=== PATIENT | male | born 1955 | race Caucasian/White ===

== ENCOUNTER 2018-04-16 09:39 | Inpatient (IN) | payer MEDICARE, SELFPAY ==
[2018-04-16] MEDS ORDERED: Metoprolol Tartrate 5 MG/5 ML VIAL ONE (09:53)
[2018-04-16 09:57] LABS: #Basophils 0.1 thou/uL (0.0-0.2); #Eosinphils 0.1 thou/uL (0.0-0.7); #Lymphocytes 1.8 thou/uL (1.20-3.40); #Monocytes 0.4 thou/uL (0.11-0.59); #Neutrophils 13.5 thou/uL (1.40-6.50); %Basophils 0.7 % (0.0-1.0); %Eosinophils 0.4 % (0.0-10.0); %Lymphocytes 11.4 % (21.0-51.0); %Monocytes 2.7 % (0.0-10.0); %Neutrophils 84.7 % (42.0-75.0); Hemoglobin 16.6 g/dL (14.0-18.0); Mean Corpuscular HGB CONC 32.5 g/dL (32.0-36.0); Mean Corpuscular Hemoglobin 29.6 pg (27.0-31.0); Mean Platelet Volume 9.2 fL (7.4-10.4); Platelet Count 264 thou/uL (130-400); RBC Distribution Width 15.5 % (11.5-14.5); Red Blood Cell (RBC) Count 5.62 mill/uL (4.70-6.10); White Blood Cell (WBC) Count 15.9 thou/uL (4.8-10.8)
[2018-04-16] MEDS ORDERED: Propofol 1,000 MG/100 ML VIAL IV ONE ×2 (10:07→14:23)
[2018-04-16 10:16] LABS: CO2 Tension 59.3 mmHg (35.0-45.0); pH, Arterial 7.31 (7.35-7.45)
[2018-04-16 10:17] LABS: Analyzer IN Cardio ER; Base Excess (BEa) 1.2 mEq/L (-2.0 to +3.0); Calcium, Ionized 1.1 mmol/L (1.12-1.30); Puncture Site LBA
[2018-04-16 10:18] LABS: ALV-art Gradient 80.775 (0-20)
[2018-04-16 10:29] LABS: Bilirubin Negative (Negative); Blood, Urine Moderate (Negative); Clarity CLOUDY (Clear); Glucose, Urine (Dipstick) Negative (Negative); Leukocyte Moderate (Negative); Nitrite Negative (Negative); Protein, Urine (Dipstick) 300 mg/dL (Neg-Trace); Specific Gravity, Urine 1.016 (1.002-1.036); Urobilinogen 0.2 mg/dL (0.2-1.0); pH, Urine 5.5 (5.0-9.0)
--- NOTE | 2018-04-16 10:30 | RAD ---
CHEST ONE VIEW: HISTORY: Tube placement. COMPARISON: None. FINDINGS: The patient is intubated, with the endotracheal tube tip above the rivas, approximately 2 cm. Heart size is enlarged. No pneumothorax. A defibrillator pad projects over the right hemithorax. The left lung is relatively clear. Mild edema. Fullness of the hilum bilaterally. IMPRESSION: 1. Endotracheal tube tip above the rivas, approximately 2 cm. 2. Enteric tube tip felt to be at the gastric fundus. 3. Mild pulmonary venous congestion versus early edema. 4. Mild dilatation of the pulmonary arteries can be seen with early pulmonary arterial hypertension. POS: [facility]
[2018-04-16 10:31] LABS: Bacteria/HPF None Seen HPF (None Seen); Hyaline Casts/LPF 0-3 HYALINE CAST LPF (0-3 Hyaline); RBC/HPF 0-3 HPF (0-3); Squamous Epithelial 0-3 HPF (0-3); WBC/HPF 21-50 HPF (0-3); Yeast-AUWi Flag 23.6 (0-25.0)
[2018-04-16 10:38] LABS: Renal Epithelial None Seen HPF (0-3); Transitional Epithelial NONE SEEN HPF (0-3)
[2018-04-16] MEDS ORDERED: Acetaminophen 650 MG Suppository ONE (10:53)
--- NOTE | 2018-04-16 11:17 | CT ---
NONCONTRAST CT HEAD: 04/16/2018 HISTORY: Altered mental status. Persistent seizure activity for 30 minutes prior to EMS arrival, per family. History of seizures. COMPARISON: None available. FINDINGS: There is diminished attenuation in the periventricular white matter, greater on the left, which is no nspecific but likely reflective of chronic small vessel ischemic changes. A low density focus is see n in the region of the left basal ganglia, related to a lacunar infarction of indeterminate age. The re is also a punctate focus of decreased attenuation in the left thalamus, also consistent with a lac unar infarction of indeterminate age. No acute cortical infarction is seen. There is no intraparenc hymal or extraaxial hemorrhage identified. There is mild cerebral volume loss. The ventricular system is normal in size, shape, and position. Mucosal thickening is seen in the ethmoid air cells bilaterally. Mastoid effusions are present on th e right. Calvarial structures are intact. IMPRESSION: 1. Lacunar infarctions in the left basal ganglia and left thalamus, of indeterminate age. 2. Diminished attenuation in the periventricular and subcortical white matter, greater on the left, which is nonspecific but likely reflective of chronic small vessel ischemic changes. 3. MRI would be a more sensitive study of choice for evaluation of a more acute infarction. 4. Mild cerebral volume loss. 5. Sinus disease with mastoid effusions on the right. POS: [facility]
[2018-04-16 11:22] LABS: ALT (SGPT) 19 U/L (8-55); AST (SGOT) 23 U/L (5-34); Albumin 4.2 g/dL (3.4-4.8); Alkaline Phosphatase 143 U/L (40-150); Anion Gap 20 mmol/L (10-20); BUN (Urea Nitrogen) 33 mg/dL (8.4-25.7); Bilirubin, Total 0.8 mg/dL (0.2-1.2); Calc. Creatinine Clearance 0 mL/min (70-130); Calcium 9.3 mg/dL (7.8-10.44); Carbon Dioxide 26 mmol/L (23-31); Chloride 102 mmol/L (98-107); Estimated GFR-MDRD 52; Glucose 310 mg/dL (80-115); Potassium 4.2 mmol/L (3.5-5.1); Protein, Total 8.2 g/dL (5.8-8.1); Sodium 144 mmol/L (136-145)
[2018-04-16 11:25] LABS: CKMB 2.2 ng/mL (0-6.6); Troponin I 0.065 ng/mL (< 0.028)
[2018-04-16] MEDS ORDERED: Piperacillin/Tazobactam 3.375 GM VIAL ONE (12:03)
[2018-04-16] MEDS ORDERED: Sodium Chloride 0.9% 0 ML ONE ×2 (12:04→12:07)
[2018-04-16] MEDS ORDERED: Piperacillin/Tazobactam 3.375 GM in Sodium Chloride 0.9% 100 ML IVPB ONE (12:30)
[2018-04-16] MEDS ORDERED: Dextrose 5% in Water 1,000 ML IV PRN (12:33)
[2018-04-16] MEDS ORDERED: Dextrose 50% Abboject 50 ML SYRINGE SLOW IVP PRN (12:33)
[2018-04-16] MEDS ORDERED: Acetaminophen 650 MG Suppository PR PRN (12:39)
[2018-04-16] MEDS ORDERED: CCU Electrolyte Replacement 1 EACH IVPB ONE (12:39)
[2018-04-16] MEDS ORDERED: Acetaminophen 650 MG/20.3 ML UDCUP PO PRN (12:39)
[2018-04-16] MEDS ORDERED: Potassium Phosphate 15 MMOL in Sodium Chloride 0.9% 250 ML 250 ML IV PRN (12:44)
[2018-04-16] MEDS ORDERED: Potassium Chloride 40 MEQ in Sodium Chloride 0.9% 250 ML 250 ML IVPB PRN (12:44)
[2018-04-16] MEDS ORDERED: CCU ELECTROLYTE REPLACEMENT PROTOCOL FS PRN (12:44)
[2018-04-16] MEDS ORDERED: Magnesium 2 GM/NS 0.9% 100 ML 2 GM in Premix Bag 1 BAG IVPB PRN (12:44)
[2018-04-16] MEDS ORDERED: Potassium Phosphate 12 MMOL in Sodium Chloride 0.9% 250 ML 250 ML IV PRN (12:44)
[2018-04-16] MEDS ORDERED: Magnesium Oxide 400 MG TAB PO PRN ×2 (12:44)
[2018-04-16] MEDS ORDERED: Potassium Chloride 40 MEQ in Premix Bag 1 BAG IVPB PRN (12:44)
[2018-04-16] MEDS ORDERED: Potassium Chloride 20 MEQ TAB PO PRN (12:44)
[2018-04-16] MEDS ORDERED: Potassium Phosphate 9 MMOL in Sodium Chloride 0.9% 100 ML IVPB PRN (12:44)
[2018-04-16] MEDS ORDERED: Metoprolol Tartrate 5 MG/5 ML VIAL IVP PRN (13:07)
[2018-04-16] MEDS ORDERED: Ketorolac Tromethamine 30 MG/ML VIAL ONE (13:15)
--- NOTE | 2018-04-16 13:36 | HP ---
PRESENTING COMPLAINT: Seizures. HISTORY OF PRESENT ILLNESS: Mr. Magdaleno Powell is a 62-year-old male with a past medical history of de pression, atrial fibrillation, diabetes mellitus, hypertension, hyperlipidemia, and diagnosed with a seizure disorder about a month ago and was started on Keppra. According to his , he felt very un well yesterday and reported feeling fatigued and had poor appetite. He did not have any specific sym ptoms, but he laid in bed all day. Then earlier this morning around 5:00 a.m. he started having seiz ures and had recovery afterwards and told to only have a least fall seizure episodes after which he b ecame unresponsive and then called EMS. He was given 2 doses of Versed in the field. On arriva l, he was found to be nonresponsive with a [place] coma scale of about 7. He was then intubated for airway protection at the emergency room and was found to be febrile and EKG showed atrial fibrillatio n with RVR for which he was given 5 mg of metoprolol with resolution. Labs also revealed elevated WB C of about 16,000, lactate of 4.8 and initial troponin 0.065. ABG done showed a pH of 7.3 with pCO2 of 59.3 and pO2 59. Urinalysis revealed moderate amount of leukocyte esterase with increased WBCs, b ut no bacteria or nitrites. His reports he was treated for a urinary tract infection last month . Chest x-ray showed mild pulmonary venous congestion versus heavy edema and mild dilatation of the pulmonary arteries. Brain CT showed no acute abnormalities. PAST MEDICAL HISTORY: Atrial fibrillation, diabetes mellitus, hypertension, seizure disorder, depres warren, hyperlipidemia. PAST SURGICAL HISTORY: Bilateral toe surgery. He is status post 2 cardiac stents and left shoulder surgery. FAMILY HISTORY: Reviewed and noncontributory. SOCIAL HISTORY: He smokes about 4 cigarettes daily, but does not drink alcohol or use illicit drugs. ALLERGIES: No known drug allergies. CODE STATUS: Full code. HOME MEDICATIONS: Reviewed. REVIEW OF SYSTEMS: The patient is intubated, so unable to review systems. In addition, history is limited due to patient being sedated and intubated. History gotten from [facility] review, sign out and the patient's . PHYSICAL EXAMINATION: VITAL SIGNS: Blood pressure 160/100, heart rate 102. All other vital signs within normal limits. GENERAL: The patient is intubated and sedated, looks comfortable. HEENT: Neck is supple, no JVD. Normocephalic, atraumatic. Not pale, anicteric. PERRLA. CARDIOVASCULAR: Slightly tachycardic at 102. Regular rate and rhythm. No murmurs, rubs or gallops S1, S2 only. RESPIRATORY: Vesicular breath sounds bilaterally. No wheezes, rales or rhonchi. ABDOMEN: Soft, nontender, nondistended. No organomegaly. Bowel sounds normoactive. MUSCULOSKELETAL: No edema. SKIN: Warm, dry, well-perfused. No rashes or lesions. EXTREMITIES: Right second toe amputation. NEUROLOGIC: Intubated and sedated. LABORATORY: Labs as stated in HPI. ____ as stated in the HPI. ASSESSMENT AND PLAN: 1. Acute respiratory failure with hypoxia and hypercapnia. 2. Status epilepticus. 3. Atrial fibrillation with rapid ventricular response. 4. Hypertension. 5. Hyperlipidemia. 6. Depression. PLAN: The patient had status epilepticus with subsequent inability to protect airway leading to acut e hypoxic and hypercapnic respiratory failure. He has been intubated and sedated. We will obtain a Keppra level. Blood cultures have also been obtained and he has been started on broad spectrum antib iotics for possible infection triggering his seizures. We will follow up on blood cultures. In ofe tion, we will obtain Neurology consult, pursue drain cultures and trend troponin and CPK level. Pulm onary will also be consulted. He will also be hydrated with IV fluids due to his elevated Keppra lev el which could be due to infection, but also due to his seizures. For atrial fibrillation we will pl mary on IV metoprolol p.r.n. for heart rate greater than 170. If still uncontrolled might be forced t o start on the diltiazem drip and consult Cardiology. CODE STATUS: Full code. Deep venous thrombosis prophylaxis with subcutaneous heparin. Critical care time 45 minutes.
[2018-04-16] MEDS ORDERED: Lorazepam 2 MG/ML VIAL SLOW IVP PRN ×3 (14:10→16:42)
[2018-04-16 14:13] LABS: Troponin I 0.135 ng/mL (< 0.028)
[2018-04-16] MEDS: Sodium Chloride 0.9% 1,000 ML IV SCH (16:00)
[2018-04-16] MEDS ORDERED: Propofol BOLUS 1,000 MG/100 ML VIAL IV PRN (16:42)
[2018-04-16] MEDS ORDERED: DISCONTINUE PREVIOUS NARCOTIC PAIN MEDICATIONS AND BENZODIAZEPINES FS SCH (16:42)
[2018-04-16] MEDS ORDERED: fentaNYL Citrate/PF 2,000 MCG in Sodium Chloride 0.9% 60 ML IV SCH (16:42)
[2018-04-16] MEDS ORDERED: Morphine 4 MG/ML VIAL SLOW IVP PRN (16:42)
[2018-04-16] MEDS ORDERED: Fentanyl BOLUS 250 ML IVPB PRN (16:42)
[2018-04-16 17:07] LABS: Lactic Acid 2.1 mmol/L (0.5-2.2)
[2018-04-16] MEDS: Ampicillin 2 GM in Sodium Chloride 0.9% 100 ML IVPB SCH ×2 (17:08→20:59)
[2018-04-16] MEDS: Cefepime 2 GM in Sodium Chloride 0.9% 100 ML IVPB SCH (17:09)
[2018-04-16] MEDS: Heparin 5,000 UNITS/ML VIAL SC SCH ×2 (17:09→20:59)
[2018-04-16] MEDS: Acetaminophen 650 MG/20.3 ML UDCUP PO SCH ×2 (17:09→22:32)
[2018-04-16] MEDS: HumaLOG 300 UNITS/3 ML VIAL SC PRN ×2 (17:10→21:04)
[2018-04-16 17:16] LABS: Troponin I 0.243 ng/mL (< 0.028)
[2018-04-16] MEDS ORDERED: Piperacillin/Tazobactam 3.375 GM in Sodium Chloride 0.9% 100 ML IVPB SCH (18:00)
[2018-04-16] MEDS: Propofol 1,000 MG/100 ML VIAL IV PRN (19:00)
[2018-04-16] MEDS: Famotidine/PF 20 mg/2ml Vial SLOW IVP SCH (20:22)
[2018-04-16] MEDS: levETIRAcetam In NaCl (Iso-Os) 1,500 MG in Premix Bag 1 BAG IVPB SCH (20:22)
[2018-04-16] MEDS: Labetalol HCl 100 MG/20 ML VIAL SLOW IVP PRN (21:12)
--- NOTE | 2018-04-16 21:59 | CON ---
DATE OF CONSULTATION: 04/16/2018 SERVICE: Pulmonary Medicine. REASON FOR CONSULTATION: Respiratory failure. HISTORY OF PRESENT ILLNESS: The patient is a 62-year-old white male with past medical history significant for some degree of COPD. He was diagnosed with new- onset seizures about a month ago. He underwent evaluation at that time, which was apparently unremarkable so far as I am aware. He was discharged from a different hospital on . From the 's recollection, he was taking all his medications as directed. He had an abrupt onset of seizures. Without recovering fully, he had 3 more seizures. EMS services were contacted when the patient became less responsive. He was intubated in the field and subsequently brought to the emergency department. He was given Versed there. In the Emergency Department, he was kept down with propofol. There was no more witnessed seizure activity identified, but the patient had a persistent fever of 102. He cannot provide any elements of the history at this time. He is just getting settled in the ICU as I am dictating. PAST MEDICAL HISTORY: 1. Seizure disorder, new onset. 2. Type 2 diabetes mellitus. 3. Atrial fibrillation. 4. Hypertension. 5. Dyslipidemia. 6. Major depressive disorder. 7. Chronic obstructive pulmonary disease, suspected based on barrel chest. 8. Coronary artery disease. 9. Peripheral vascular disease. PAST SURGICAL HISTORY: 1. Toe amputations, bilateral. 2. Cardiac stents x2. 3. Left shoulder surgery. FAMILY HISTORY: Noncontributory. SOCIAL HISTORY: The patient continues to smoke roughly 1/4 pack on a daily basis. He has a greater than [id number] history of smoking. He denies any alcohol or illicit drug use. ALLERGIES: No known drug allergies. MEDICATIONS: List of his inpatient medications were reviewed. A couple of small updates were made. REVIEW OF SYSTEMS: This cannot be obtained as the patient is currently intubated and sedated. PHYSICAL EXAMINATION: VITAL SIGNS: Temperature 102, pulse 96, blood pressure 128/82, respirations 20 , saturation 93% on 23% FiO2 and a PEEP of 5. GENERAL: The patient is intubated and sedated. HEENT: Normocephalic, atraumatic. Sclerae white. Conjunctivae pink. Oral and nasal mucosa is moist without lesions. LUNGS: Decent air entry. There is a slightly prolonged expiratory phase, but I do not appreciate wheezing, rhonchi, or crackles. HEART: Normal rate, regular. ABDOMEN: Scaphoid. Bowel sounds are positive. Soft, nontender, nondistended. There is no rebound or guarding. GENITOURINARY: Muhammad catheter in place. NEUROLOGIC: He is withdrawing for noxious stimuli in the left upper and lower extremities. He is moving the right upper and lower extremities quite a bit less. Pupils are equal, round, and reactive. He is overbreathing the ventilator comfortably. LABORATORY DATA: WBC 15.9, hemoglobin 16.6, platelets 264,000. PH 7.31, pCO2 of 60, pO2 of 60. This was on 30% FiO2 at that time. Creatinine is 1.38. Basic metabolic profile and liver function studies are essentially unremarkable. Lactate is 4.8. Troponin 0.65, is up trending to 0.135. Urinalysis is essentially unremarkable. Leukocyte esterase is elevated. There is moderate number of white blood cells in the urine. Keppra level is 25.9. IMAGING: CT of the brain demonstrates lacunar infarctions in the left basal ganglia and the left thalamus with an indeterminate age. There is decreased attenuation in the periventricular and subcortical white matter, greater on the left, likely reflecting chronic small vessel disease. ASSESSMENT: 1. Respiratory failure secondary to inability to protect airway. 2. Status epilepticus. 3. Severe sepsis. 4. Cerebrovascular accident, possibly acute versus subacute. 5. Chronic obstructive pulmonary disease without acute exacerbation. DISCUSSION AND PLAN: We will schedule some nebulized medications. I will repeat a lactate and a troponin. If he is clearing his acidosis, we will hold sedation and see whether or not the patient wakes up appropriately. If he does , extubation will be considered. I will schedule some Tylenol for the fever. It may be infection or associated with the thermostat being damaged from a recent stroke. Agree with Neurology consultation. The patient will likely require an LP, but I need to clarify what medications he was on at home to make certain it would be safe to proceed with that. I will stop the Zosyn and put him on cefepime instead and add ampicillin based on age and make certain that we empirically cover for BLUEPRINT BLOCKER disease. Critical care time: 30 minutes. [facility]
[2018-04-16] MEDS: hydrALAZINE 20 MG/ML VIAL SLOW IVP PRN (22:31)
[2018-04-16] MEDS: Vancomycin HCl 1 GM in Premix Bag 1 BAG IVPB SCH (22:31)
--- NOTE | 2018-04-16 23:47 | CON ---
DATE OF CONSULTATION: 04/16/2018 IMPRESSION: 1. Status epilepticus secondary to urosepsis. 2. History of a new onset of focal seizures with secondary generalization secondary to chronic [place]che beka injury in the left frontal and parietal lobe. 3. Diabetes. 4. Hypertension. 5. Atrial fibrillation. PLAN: 1. Increase Keppra to 1500 mg twice a day. 2. Wean off the ventilator as able. HISTORY OF PRESENT ILLNESS: Mr. Powell is a 62-year-old man with a known history of multiple medical problems. Last month, he developed new onset of seizures. He was started on Keppra. He was seen do wn at the [facility] and that Keppra dose was increased to 1000. He started having recurrent seizures yesterday and was subsequently admitted, intubated, and sedated with propofol. He has not had any f urther seizure activity. CT scan of the brain shows areas of chronic ischemic injury as noted above. His laboratory studies notable for an elevated white count and probable urinary tract infection. H is Keppra level was 25 with normal range being up to 100. PAST MEDICAL HISTORY: As listed above. ALLERGIES: None. SOCIAL HISTORY: He smokes a little bit, but does not use any alcohol. FAMILY HISTORY: Noncontributory. REVIEW OF SYSTEMS: Not obtainable. PHYSICAL EXAMINATION: GENERAL: He is a well-nourished elderly man on ventilatory support and sedated. VITAL SIGNS: Stable with a pulse around 100. HEENT: Pupils are equal. Conjunctivae clear. He is orally intubated. NECK: Supple. EXTREMITIES: No cyanosis. NEUROLOGIC: He is deeply sedated on propofol nothing focal was noted as far as his tone or movement. SUMMARY: A 62-year-old gentleman who has some cerebral ischemic injury resulting in secondary seizur es. They have been noted to begin on the right side and secondarily generalized. We can try increas ing his Keppra to see if this will hold him, be happy to assist if you need further care from at this point.
--- NOTE | 2018-04-17 01:41 | CON ---
DATE OF CONSULTATION: 04/16/2018 INDICATION FOR CONSULTATION: A 62-year-old patient with atrial fibrillation and RVR. HISTORY OF PRESENT ILLNESS: This is a very unfortunate 62-year-old gentleman who has been having wes sorto recently, he has been on Keppra. He apparently had a seizure, which lasted longer, today he wa s brought to the emergency room, he was found to be in atrial fibrillation. He was given metoprolol. He then is now under better rate control. His heart rate in the 100s. I will see the patient at t his time. He apparently does have some history of atrial fibrillation in the past. He is now intuba kevin. Also his cardiac enzymes are indeterminate, but slightly elevated, that have increased from 0.0 65 to 0.0135 and now the latest one was 0.0243 with MB of 2.2. This to be elevated slightly or indet erminate due to the atrial fibrillation with rapid ventricular response. I am uncertain of any past cardiac history that the patient may have, but he does have multiple risk factors of coronary artery disease which include hypertension, hypercholesterolemia and diabetes. He has also had stent placeme nts. He has a left carotid stent. He has also had peripheral vascular disease, he had stent placeme nts. We are uncertain again whether or not he has had any coronary artery disease. He is on Plavix as well as aspirin. PAST MEDICAL HISTORY: Significant for diabetes, hypertension, hypercholesterolemia, seizure disorder , left carotid stent, peripheral vascular disease. He has had toe amputations, he has osteoarthritis . SOCIAL HISTORY: He is . He smoked in the past, but has stopped apparently. His tobacco abus e, but he smoked in the past. Alcohol use, he drinks also in the past but stopped about 3 years ago. FAMILY HISTORY: Noncontributory. ALLERGIES: There are no known drug allergies. MEDICATIONS: He has an extensive list of medications prior to being admitted. These included Colace , vitamin D2, ferrous gluconate, Lasix 80 mg a day, gabapentin 300 mg 3 times daily, losartan 100 mg daily, metformin 100 mg b.i.d. He was also having nicotine patch and also nicotine gum. He is on om eprazole, potassium, sertraline, tamsulosin, tramadol. REVIEW OF SYSTEMS: The patient is on ventilator and these cannot be obtained at this time. Please r efer to the records already dictated. PHYSICAL EXAMINATION: GENERAL: Reveals an ill-appearing gentleman. VITAL SIGNS: Blood pressure is 166/101, heart rate is 101, respiratory rate is 20, O2 saturation 95% on the ventilator. HEENT: Shows head to be normocephalic and atraumatic. Carotid pulses are present. I did not hear a ny significant bruits. CHEST: Clear anteriorly. Posteriorly, he has minimal basilar rales. CARDIOVASCULAR: Heart sounds are distant. His chest is somewhat barrel type chest. I do not hear a very soft systolic murmur over the aortic area and also at the apex. Otherwise, there were no signi ficant murmurs, heaves, thrills, bruits or rubs. ABDOMEN: Soft and nontender. Positive bowel sounds are present. EXTREMITIES: Showed no clubbing. There is no significant cyanosis. He does have amputations of the toes. His right great toe appears to have been recently amputated. I cannot palpate pedal pulses. Popliteal pulses also were not present by this examiner. NEUROLOGIC: The patient is on the ventilator and sedated. IMAGING DATA: EKG shows a right bundle branch block with atrial fibrillation with rapid ventricular response. Ther e was some possible ischemic changes in ST segment depression, but no ST segment elevation. Chest x- ray shows mild pulmonary edema. IMPRESSION: 1. A 62-year-old patient with atrial fibrillation with rapid ventricular response. At this time, we will rate control the patient, uncertain whether or not he has had a long history of atrial fibrilla tion in the past and why he had been not on any other oral anticoagulation. It may be due to history of falls or due to his seizure disorder. This is most likely due to the seizure disorder. They hav e held the medications. 2. Right bundle branch block. It is uncertain as to whether this is new for this patient or not. I t is uncertain whether the patient has coronary artery disease, but it would not be unlikely. 3. Seizure disorder. This will be dealt with by the primary care service. 4. History of peripheral vascular disease. He has had recent amputations. 5. Diabetes, also blood sugars between 225 and 310. We will need better adjustment. At this time, we will need to evaluate the echocardiogram and we will try to obtain any records or [facility] whether or not there is any indication the patient has had previous coronary artery disease. We would be more than happy to continue to follow the patient with you, but at this time, I would agr ee with rate control in this patient and certainly he is sedated at this time, we could use Lovenox f or anticoagulation. I did not see any contraindication to using Lovenox for this patient at this angela e for his atrial fibrillation.
[2018-04-17] MEDS: Sodium Chloride 0.9% 1,000 ML IV SCH ×2 (02:48→07:51)
[2018-04-17] MEDS: Propofol 1,000 MG/100 ML VIAL IV PRN ×2 (02:48→18:16)
[2018-04-17] MEDS: Ampicillin 2 GM in Sodium Chloride 0.9% 100 ML IVPB SCH ×2 (03:16→09:14)
[2018-04-17] MEDS: Cefepime 2 GM in Sodium Chloride 0.9% 100 ML IVPB SCH ×2 (04:57→16:40)
[2018-04-17] MEDS: HumaLOG 300 UNITS/3 ML VIAL SC PRN (04:57)
[2018-04-17] MEDS: Acetaminophen 650 MG/20.3 ML UDCUP PO SCH ×3 (05:01→16:40)
[2018-04-17 05:45] LABS: ALT (SGPT) 14 U/L (8-55); AST (SGOT) 20 U/L (5-34); Albumin 4.2 g/dL (3.4-4.8); Alkaline Phosphatase 134 U/L (40-150); Anion Gap 20 mmol/L (10-20); BUN (Urea Nitrogen) 32 mg/dL (8.4-25.7); Bilirubin, Total 0.8 mg/dL (0.2-1.2); Calc. Creatinine Clearance 65 mL/min (70-130); Calcium 9.4 mg/dL (7.8-10.44); Carbon Dioxide 25 mmol/L (23-31); Chloride 102 mmol/L (98-107); Estimated GFR-MDRD 61; Globulin 4.2 g/dL (2.4-3.5); Glucose 236 mg/dL (80-115); Potassium 3.3 mmol/L (3.5-5.1); Protein, Total 8.4 g/dL (5.8-8.1); Sodium 144 mmol/L (136-145)
[2018-04-17 05:57] LABS: Band 3 % (5-11); Lymphocytes 6 % (21-51); MDiff Complete? YES; Mean Corpuscular HGB CONC 34.3 g/dL (32.0-36.0); Mean Corpuscular Hemoglobin 30.9 pg (27.0-31.0); Mean Corpuscular Volume 90.2 fl (80.0-94.0); Mean Platelet Volume 8.5 fL (7.4-10.4); Monocytes 2 % (0-10); Neutrophil 89 % (42-75); Platelet Count 171 thou/uL (130-400); RBC Distribution Width 15.7 % (11.5-14.5); Red Blood Cell (RBC) Count 5.16 mill/uL (4.70-6.10)
[2018-04-17] MEDS ORDERED: Carvedilol 3.125 MG TAB PO SCH ×2 (08:00→09:30)
[2018-04-17] MEDS: Labetalol HCl 100 MG/20 ML VIAL SLOW IVP PRN ×6 (08:59→17:06)
[2018-04-17] MEDS: Heparin 5,000 UNITS/ML VIAL SC SCH (09:06)
[2018-04-17] MEDS: levETIRAcetam In NaCl (Iso-Os) 1,500 MG in Premix Bag 1 BAG IVPB SCH ×2 (09:15→20:21)
--- NOTE | 2018-04-17 09:38 | PRG ---
DATE OF SERVICE: 04/17/2018 SERVICE: Pulmonary Medicine. INTERVAL HISTORY: The patient is doing poorly from a mentation standpoint. When we interrupt his pr opofol, he is not doing anything of purpose. He has not been seen to move his right upper or lower e xtremity. He will spontaneously move his left upper and lower extremity and withdraw from noxious st imuli. He does not attend. There were no events other than fever overnight. PHYSICAL EXAMINATION: VITAL SIGNS: Afebrile currently with a T-max overnight of 102.7, pulse 99, blood pressure 191/106, r espirations 16, saturation 96% on 21% FiO2 and a PEEP of 5. GENERAL: The patient is intubated and under the influence of some sedation. HEENT: Normocephalic, atraumatic. Sclerae are white. Conjunctivae pink. Oral and nasal mucosa is moist without lesions. He does an eye fluttering maneuver. LUNGS: Decent air entry with no prolonged expiratory phase, wheezing, rhonchi, or crackles. HEART: Normal rate, regular. ABDOMEN: Soft, nontender, nondistended. Bowel sounds are positive. MUSCULOSKELETAL: No cyanosis or clubbing. There is no pitting in the bilateral lower extremities. NEUROLOGIC: Grossly nonfocal. LABORATORY DATA: WBC 18.0, hemoglobin 16.0, platelets 171,000. Neutrophil count is 89% with 3% band s. Creatinine 1.20 and downtrending. Basic metabolic profile and liver function studies are, otherw ise, unremarkable. His potassium, however, is 3.3. Two out of two blood cultures are positive for g ayah-positive cocci. Urine cultures negative to date. ASSESSMENT: 1. Respiratory failure secondary to inability to protect airway. 2. Status epilepticus. 3. Metabolic encephalopathy. 4. Severe sepsis. 5. Chronic obstructive pulmonary disease with acute exacerbation. 6. Bacteremia secondary to gram-positive cocci. 7. Cerebrovascular accident, acute versus subacute. DISCUSSION AND PLAN: We will replace potassium. I will get an MRI and EEG today. Labetalol interva l will be increased and we will try to keep his systolic blood pressures under 180. Magnesium will b e checked in the morning. Multiple ventilator adjustments have been made in order to improve comfort . Namely, we backed off the rate and turned a little bit more work of breathing over to the patient. If he is having any seizure activity, we will need to put him in a propofol coma for a period of 24 -48 hours. Critical care time: 30 minutes.
[2018-04-17] MEDS: Sodium Chloride 0.45% 1,000 ML IV SCH ×2 (09:44→23:39)
[2018-04-17] MEDS ORDERED: Dextrose 5% in Water 1,000 ML IV PRN (10:15)
[2018-04-17] MEDS ORDERED: Dextrose 50% Abboject 50 ML SYRINGE SLOW IVP PRN (10:15)
[2018-04-17] MEDS: Vancomycin HCl 1 GM in Premix Bag 1 BAG IVPB SCH ×2 (11:53→23:35)
[2018-04-17] MEDS ORDERED: Losartan 25 MG TAB PO SCH (12:45)
--- NOTE | 2018-04-17 12:46 | PDOC.CTH ---
<Haily Pickering - Last Filed: 04/17/18 12:43> Cardiology Progress Note - Subjective The pt seen and examined. No overnight events. No cardiac complaints. He opens his eyes with pain stimulation; however, he does not follow commands. - Objective Vital Signs Temp Pulse Resp BP Pulse Ox 04/17/18 12:00 17 04/17/18 11:35 81 190/100 H 04/17/18 11:01 85 206/107 H 04/17/18 10:18 93 186/118 H 04/17/18 10:00 17 04/17/18 09:00 99 215/122 H 04/17/18 08:59 99 215/122 H 04/17/18 08:00 99.9 F H 99 17 99 04/17/18 06:55 86 169/102 H 04/17/18 06:00 14 04/17/18 04:00 100.1 F H 17 04/17/18 02:45 103 H 157/91 H 04/17/18 02:00 17 Weight 166 lb 14.239 oz 04/16/18 04/17/18 04/18/18 06:59 06:59 06:59 Intake Total 2228 Output Total 655 335 Balance 1573 -335 - Physical Examination Lungs: other: (diminished at bases) Heart: other: (irregular) Abdomen: soft Extremities: other: (No edema) - Telemetry Telemetry Rhythm: Afib 80s - Labs Result Diagrams: 04/17/18 05:20 04/17/18 05:20 Troponin/CKMB CK-MB (CK-2) 2.2 ng/mL (0-6.6) 04/16/18 10:55 Troponin I 0.243 ng/mL (< 0.028) H 04/16/18 16:39 - Assessment/Plan 1. Afib with RVR - rate well controlled; BBlocker and Heparin 5000 units TID; cont. to monitor 2. Seizure 2nday to chronic ischemic injury in Lt frontal and parental lobe - managed by neurologist 3. HTN - on Coreg 12.5mg BID with PRN BP med; start Losartan 50mg qd and amilodipine 5mg at HS; 4. Urosepsis - On IV antibiotics; managed by PCP 5. DM type 2 - managed by PCP 6. Hyperlipidemia - on statin 7. PVD with hx of stent placement and Bilat Toe amputation in 02/2018 - on Heparin 5000units TID. MAR reviewed Review of Systems - Review of Systems Constitutional: reports: see HPI EENTM: reports: see HPI Respiratory: reports: see HPI Cardiac (ROS): reports: see HPI ABD/GI: reports: see HPI : reports: see HPI Musculoskeletal: reports: see HPI <Lianet Mcnamara - Last Filed: 04/17/18 20:17> Cardiology Progress Note - Objective Vital Signs Pulse Resp BP Pulse Ox 04/17/18 18:20 100 15 100 04/17/18 18:00 14 04/17/18 17:06 96 197/55 H 04/17/18 16:00 24 H 04/17/18 15:52 96 197/55 H 04/17/18 14:47 103 H 215/56 H 04/17/18 14:00 25 H 04/17/18 13:56 84 176/53 H 04/17/18 12:50 84 176/53 H 04/17/18 12:00 17 04/17/18 11:35 81 190/100 H 04/17/18 11:01 85 206/107 H 04/17/18 10:18 93 186/118 H 04/17/18 10:00 17 04/17/18 09:00 99 215/122 H 04/17/18 08:59 99 215/122 H Admit Weight 166 lb Weight 166 lb 14.239 oz 04/16/18 04/17/18 04/18/18 06:59 06:59 06:59 Intake Total 2228 1139 Output Total 655 685 Balance 1573 454 - Physical Examination Lungs: other: Heart: other: - Labs Result Diagrams: 04/17/18 05:20 04/17/18 05:20 Troponin/CKMB CK-MB (CK-2) 2.2 ng/mL (0-6.6) 04/16/18 10:55 Troponin I 0.243 ng/mL (< 0.028) H 04/16/18 16:39 - Assessment/Plan Pt. seen and eval. by me. I agree with the A/P by the [facility]. multiple medical problems. Echo: see report. EF: 60-65%Mild ,Mild TR, trace MR,AI,PI.
--- NOTE | 2018-04-17 13:17 | PDOC.PN ---
- Subjective Encounter Start Date: 04/17/18 Encounter Start Time: 13:24 Patient seen and examined. Admitted for respiratory failure, status epilepticus , and probable new CVA, as well as sepsis. Remains intubated. - Objective Vital Signs & Weight: Vital Signs (12 hours) Temp Pulse Resp BP Pulse Ox 04/17/18 12:50 84 176/53 H 04/17/18 12:00 17 04/17/18 11:35 81 190/100 H 04/17/18 11:01 85 206/107 H 04/17/18 10:18 93 186/118 H 04/17/18 10:00 17 04/17/18 09:00 99 215/122 H 04/17/18 08:59 99 215/122 H 04/17/18 08:00 99.9 F H 99 17 99 04/17/18 06:55 86 169/102 H 04/17/18 06:00 14 04/17/18 04:00 100.1 F H 17 04/17/18 02:45 103 H 157/91 H 04/17/18 02:00 17 Weight Weight 166 lb 14.239 oz Most Recent Monitor Data Heart Rate from ECG 76 NIBP 206/107 NIBP BP-Mean 133 Respiration from ECG 17 SpO2 97 I&O: 04/16/18 04/17/18 04/18/18 06:59 06:59 06:59 Intake Total 2228 Output Total 655 335 Balance 1573 -335 Result Diagrams: 04/17/18 05:20 04/17/18 05:20 Additional Labs: Accuchecks 04/17/18 04/17/18 04/16/18 11:34 04:44 21:05 POC Glucose 209 H 244 H 199 H 04/16/18 16:48 POC Glucose 225 H Phys Exam - Physical Examination Constitutional: NAD HEENT: PERRLA, moist MMs, oral pharynx no lesions Neck: no JVD, supple Respiratory: no wheezing, no rales, no rhonchi, clear to auscultation bilateral Cardiovascular: RRR, no significant murmur, no rub Gastrointestinal: soft, non-tender, no distention, positive bowel sounds Musculoskeletal: no edema Spontaneous eye opening but not able to follow commands. Deviation from normal: Cool extremities. 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; partial amputation L great Dx/Plan (1) Acute respiratory failure with hypoxia and hypercapnia Code(s): J96.01 - ACUTE RESPIRATORY FAILURE WITH HYPOXIA; J96.02 - ACUTE RESPIRATORY FAILURE WITH HYPERCAPNIA Status: Acute (2) Atrial fibrillation with RVR Code(s): I48.91 - UNSPECIFIED ATRIAL FIBRILLATION Status: Acute (3) Status epilepticus Code(s): G40.901 - EPILEPSY, UNSP, NOT INTRACTABLE, WITH STATUS EPILEPTICUS Status: Acute (4) CVA (cerebral vascular accident) Code(s): I63.9 - CEREBRAL INFARCTION, UNSPECIFIED Status: Acute (5) Hypertensive emergency Code(s): I16.1 - HYPERTENSIVE EMERGENCY Status: Acute Comment: Improving with IV labetalol. (6) Sepsis Code(s): A41.9 - SEPSIS, UNSPECIFIED ORGANISM Status: Acute Qualifiers: Sepsis type: sepsis due to unspecified organism Qualified Code(s): A41.9 - Sepsis, unspecified organism Comment: Unclear source- UTi or meningeal (7) DM2 (diabetes mellitus, type 2) Status: Acute Qualifiers: Diabetes mellitus skilled nursing insulin use: without termite control service representative use Diabetes mellitus complication status: with neurologic complications Diabetes mellitus complication detail: with polyneuropathy Qualified Code(s): E11.42 - Type 2 diabetes mellitus with diabetic polyneuropathy (8) HLD (hyperlipidemia) Code(s): E78.5 - HYPERLIPIDEMIA, UNSPECIFIED Status: Acute Qualifiers: Hyperlipidemia type: unspecified Qualified Code(s): E78.5 - Hyperlipidemia , unspecified (9) PVD (peripheral vascular disease) Code(s): I73.9 - PERIPHERAL VASCULAR DISEASE, UNSPECIFIED Status: Chronic (10) CINTIA (acute kidney injury) Code(s): N17.9 - ACUTE KIDNEY FAILURE, UNSPECIFIED Status: Acute (11) Hypokalemia Code(s): E87.6 - HYPOKALEMIA Status: Acute - Plan cont current plan of care, continue antibiotics, DVT proph w/heparin Continue broad spectrum antibiotics- Vanc, Cefemime and Ampicillin for possible meningeal source of sepsis Patient will be weaned off vent Continue Insulin Labetalol 20 mg IV PRN for tachycardia, BP > 180 Will need an MRI and EEG for possible new CVA and epilepsy. f/u final blood culture results. Review of Systems - Medications/Allergies Allergies/Adverse Reactions: Allergies Allergy/AdvReac Type Severity Reaction Status Date / Time No Known Allergies Allergy Unverified 04/16/18 12:16 Medications: Current Medications Acetaminophen (Tylenol Elixir) 650 mg PO Q6HR [facility] Stop: 04/17/18 18:01 Last Admin: 04/17/18 11:35 Dose: 650 mg Acetaminophen (Tylenol Elixir) 650 mg PO Q6H PRN PRN Reason: Fever > 101 or Mild Pain Acetaminophen (Tylenol) 650 mg CA Q6H PRN PRN Reason: Fever > 101 or Mild Pain Albuterol/Ipratropium (Duoneb) 3 ml NEB [id number] [facility] Last Admin: 04/17/18 12:49 Dose: 3 ml Amlodipine Besylate (Norvasc) 5 mg PO 2100 [facility] Atorvastatin Calcium (Lipitor) 80 mg PO HS [facility] Carvedilol (Coreg) 12.5 mg PO BID-WM [facility] Dextrose/Water (Dextrose 50%) 25 gm SLOW IVP PRN PRN PRN Reason: Hypoglycemia Famotidine (Pepcid) 20 mg SLOW IVP Q12HR [facility] Last Admin: 04/16/18 20:22 Dose: 20 mg Glucagon (Glucagon) 1 mg IM PRN PRN PRN Reason: Hypoglycemia Heparin Sodium (Porcine) (Heparin) 5,000 units SC TID [facility] Last Admin: 04/17/18 09:06 Dose: Not Given Hydralazine HCl (Apresoline) 10 mg SLOW IVP Q6H PRN PRN Reason: Hypertension Last Admin: 04/16/18 22:31 Dose: 10 mg Vancomycin HCl 1 gm/ Device 200 mls @ 200 mls/hr IVPB 1100,2300 [facility] Last Admin: 04/17/18 11:53 Dose: 200 mls Potassium Chloride 40 meq/ (Sodium Chloride) 270 mls @ 135 mls/hr IVPB ASDIR PRN PRN Reason: FOR SERUM K+ 2.5 - 3.5 Potassium Chloride 40 meq/ (Device) 100 mls @ 50 mls/hr IVPB ASDIR PRN PRN Reason: FOR SERUM K+ 2.5 - 3.5 Magnesium Sulfate 1 gm/ Sodium (Chloride) 102 mls @ 102 mls/hr IV PRN PRN PRN Reason: MAG LEVEL 1.4 - 2.0 Magnesium Sulfate 2 gm/ Device 100 mls @ 100 mls/hr IVPB ASDIR PRN PRN Reason: MAGNESIUM < 1.4 Potassium Phosphate 9 mmol/ (Sodium Chloride) 103 mls @ 25.75 mls/hr IVPB ASDIR PRN PRN Reason: Phosphate 1.0-1.8 Potassium Phosphate 12 mmol/ (Sodium Chloride) 254 mls @ 63.5 mls/hr IV ASDIR PRN PRN Reason: Serum phosphate 0.5-0.9 Potassium Phosphate 15 mmol/ (Sodium Chloride) 255 mls @ 63.75 mls/hr IV ASDIR PRN PRN Reason: Serum Phos < 0.5 Cefepime HCl 2 gm/ Sodium (Chloride) 100 mls @ 200 mls/hr IVPB 0500,1700 [facility] Last Admin: 04/17/18 04:57 Dose: 100 mls Fentanyl Citrate 2,000 mcg/ (Sodium Chloride) 100 mls @ 0 mls/hr IV INF PRAVEEN; Per Protocol PRN Reason: Protocol Stop: 05/16/18 16:42 Fentanyl Citrate (Fentanyl Bolus) 250 mls @ 0 mls/hr IVPB PRN PRN; As Directed PRN Reason: Breakthrough pain/agitation Stop: 05/16/18 16:42 Levetiracetam 1,500 mg/ Device 100 mls @ 200 mls/hr IVPB BID [facility] Last Admin: 04/17/18 09:15 Dose: 100 mls Sodium Chloride (1/2 Normal Saline) 1,000 mls @ 75 mls/hr IV .[id number] [facility] Last Admin: 04/17/18 09:44 Dose: 1,000 mls Dextrose/Water (D5w) 1,000 mls @ 0 mls/hr IV .Q0M PRN; As Directed PRN Reason: Hypoglycemia Insulin Human Lispro (Humalog) 0 units SC .BEDTIME SLIDING SC PRN PRN Reason: Bedtime Correctional Scale Insulin Human Regular (Humulin R) 0 units SC .MODERATE SLIDING SC PRN PRN Reason: Moderate Correctional Scale Labetalol HCl (Normodyne) 20 mg SLOW IVP Q15MIN PRN PRN Reason: SBP Greater Than 180 Last Admin: 04/17/18 11:35 Dose: 20 mg Lorazepam (Ativan) 2 mg SLOW IVP Q15MIN PRN PRN Reason: Seizures Lorazepam (Ativan) 2 mg SLOW IVP Q1H PRN PRN Reason: Breakthrough agitation Stop: 05/16/18 16:42 Losartan Potassium (Cozaar) 50 mg PO DAILY PR[facility]EN Losartan Potassium (Cozaar) 50 mg PO NOW [facility] Stop: 04/17/18 14:00 Magnesium Oxide (Magnesium Oxide) 400 mg PO BIDPRN PRN PRN Reason: FOR SERUM MAG 1.4 - 2.0 Magnesium Oxide (Magnesium Oxide) 800 mg PO PRN PRN PRN Reason: FOR SERUM MAG < 1.4 Metoprolol Tartrate (Lopressor) 5 mg IVP Q6H PRN PRN Reason: To Control Heart Rate Miscellaneous Medication (Phos-Nak) 1 pkt PO TIDPRN PRN PRN Reason: FOR PHOS LEVEL 1.0 - 1.8 Miscellaneous Medication (Phos-Nak) 2 pkt PO TIDPRN PRN PRN Reason: FOR PHOS LEVEL 0.5 - 1.0 Ccu Electrolyte (Replacement Protocol) 0 each FS PRN PRN PRN Reason: FOR ELECTROLYTE REPLACEMENT Potassium Chloride (K-Dur) 40 meq PO ASDIR PRN PRN Reason: FOR SERUM K+ 2.5 - 3.5 Potassium Chloride (Klor-Con) 40 meq PER TUBE ASDIR PRN PRN Reason: FOR SERUM K+ 2.5-3.5 Last Admin: 04/17/18 06:37 Dose: 40 meq Potassium Chloride (Klor-Con) 40 meq PO Q4H [facility] Stop: 04/17/18 13:31 Last Admin: 04/17/18 09:43 Dose: 40 meq Propofol (Diprivan) 1,000 mg IV INF PRN; Protocol PRN Reason: TO ACHIEVE GOAL RASS Stop: 05/16/18 16:42 Last Admin: 04/17/18 02:48 Dose: 1,000 mg Propofol (Diprivan Bolus) 20 mg IV Q5MIN PRN PRN Reason: BREAKTHROUGH AGITATION Stop: 05/16/18 16:42 Sodium Chloride (Flush - Normal Saline) 10 ml IVF Q12HR [facility] Sodium Chloride (Flush - Normal Saline) 10 ml IVF PRN PRN PRN Reason: Saline Flush
[2018-04-17] MEDS: Insulin Regular 300 UNITS/3 ML VIAL SC PRN ×3 (13:34→22:30)
[2018-04-17] MEDS: Famotidine/PF 20 mg/2ml Vial SLOW IVP SCH ×2 (13:57→20:52)
[2018-04-17] MEDS ORDERED: Labetalol HCl 100 MG/20 ML VIAL SLOW IVP SCH (14:00)
--- NOTE | 2018-04-17 16:00 | MRI ---
MRI OF THE BRAIN: DATE: 04/17/18. HISTORY: Possible recent stroke, new onset of seizures, altered mental status, sepsis. TECHNIQUE: Multiplanar, multisequence MR imaging of the brain is obtained without contrast. FINDINGS: The diffusion weighted imaging demonstrates an area of restricted diffusion involving the temporal lo be laterally on the left measuring 2.6 x 4.2 cm. There are additional smaller foci of restricted dif fusion involving the cortex medial and lateral bladder to the posterior aspect of the left sylvian fi ssure. There are foci of restricted diffusion involving the posterior left frontoparietal region antonio r the vertex involving the subcortical white matter as well as the cortex and there are foci of restr icted diffusion within the anterior aspect of the left frontal lobe. Findings suggest multifocal acu te infarctions within the left cerebral hemisphere. There is no evidence for acute infarction involv ing the right cerebral hemisphere, the brainstem, or the cerebellum. There is an area of increased signal intensity on the FLAIR and diffusion weighted imaging within the mesial temporal lobe on the left without definite restricted diffusion. This could represent edema on the basis of recent seizure. The areas of acute infarction demonstrate evidence of increased T2 a nd FLAIR signal. In addition, there are numerous foci of increased T2 and FLAIR signal within the pe riventricular white matter as well as within the belly of the jelani, evidence of small vessel disease. There is mucosal thickening involving the ethmoid air cells bilaterally. There is near-complete opac ification of the mastoid air cells on the right. Arterial flow voids at the axial level of the skull base appear grossly unremarkable on T2 weighted imaging. There is a lesion of increased T1 and T2 s ignal within the calvarium near the vertex posteriorly on the right suggesting a hemangioma of bone. No discrete focus of abnormal signal intensity is noted within the hippocampus on either side. IMPRESSION: 1. Numerous foci of restricted diffusion noted within the left cerebral hemisphere suggesting multif ocal acute infarction. There is also abnormal signal intensity within the mesiotemporal lobe on the left, the differential diagnosis including herpes encephalitis and limbic encephalitis as well as sig nal hyperintensity on the basis of seizures. Thus, short-term followup imaging of the brain is advis ed to document resolution. 2. Small vessel disease. 3. Nonspecific mastoid effusion on the right. POS: ZOHRA
[2018-04-17] MEDS: Carvedilol 3.125 MG TAB PO SCH (16:40)
[2018-04-17] MEDS: Atorvastatin Calcium 40 MG TAB PO SCH (20:21)
[2018-04-17] MEDS: Fosphenytoin Sodium 100 MG in Sodium Chloride 0.9% 50 ML IVPB SCH (20:21)
[2018-04-17 23:00] LABS: Vancomycin, Trough 14.6 ug/mL
[2018-04-17] MEDS ORDERED: Acetaminophen 650 MG Suppository PR PRN (23:59)
[2018-04-18] MEDS: Cefepime 2 GM in Sodium Chloride 0.9% 100 ML IVPB SCH ×2 (04:07→17:37)
[2018-04-18] MEDS: HumaLOG 300 UNITS/3 ML VIAL SC PRN (04:14)
[2018-04-18 05:38] LABS: Anion Gap 16 mmol/L (10-20); BUN (Urea Nitrogen) 31 mg/dL (8.4-25.7); Calc. Creatinine Clearance 79 mL/min (70-130); Calcium 8.8 mg/dL (7.8-10.44); Carbon Dioxide 24 mmol/L (23-31); Chloride 108 mmol/L (98-107); Estimated GFR-MDRD 74; Glucose 201 mg/dL (80-115); Magnesium 1.9 mg/dL (1.6-2.6); Phosphorus 2.7 mg/dL (2.3-4.7); Potassium 3.9 mmol/L (3.5-5.1); Sodium 144 mmol/L (136-145)
[2018-04-18] MEDS: Propofol 1,000 MG/100 ML VIAL IV PRN ×3 (06:06→17:37)
[2018-04-18 06:53] LABS: Band 6 % (5-11); Hemoglobin 14.2 g/dL (14.0-18.0); Lymphocytes 9 % (21-51); MDiff Complete? YES; Mean Corpuscular HGB CONC 32.6 g/dL (32.0-36.0); Mean Corpuscular Hemoglobin 29.7 pg (27.0-31.0); Mean Corpuscular Volume 91.4 fl (80.0-94.0); Mean Platelet Volume 8.8 fL (7.4-10.4); Monocytes 9 % (0-10); Neutrophil 76 % (42-75); PLT Morphology Comment Appears Adequate; Platelet Count 142 thou/uL (130-400); RBC Distribution Width 15.9 % (11.5-14.5); RBC Morphology Normal; Red Blood Cell (RBC) Count 4.76 mill/uL (4.70-6.10); White Blood Cell (WBC) Count 14.3 thou/uL (4.8-10.8)
[2018-04-18] MEDS: Heparin 5,000 UNITS/ML VIAL SC SCH ×3 (07:55→21:42)
--- NOTE | 2018-04-18 08:35 | PDOC.CTH ---
Cardiology Progress Note - Subjective The pt seen and examined. No overnight events. No cardiac complaints. He is on vent sedation; - Objective Vital Signs Temp Pulse Resp BP Pulse Ox 04/18/18 08:00 20 04/18/18 07:56 99.5 F 95 17 96 04/18/18 07:37 95 149/78 H 04/18/18 06:00 19 04/18/18 04:00 18 04/18/18 02:00 20 04/18/18 00:11 85 16 100 04/18/18 00:00 18 04/17/18 22:00 18 04/17/18 21:00 98.8 F Admit Weight 166 lb Weight 169 lb 12.095 oz 04/17/18 04/18/18 04/19/18 06:59 06:59 06:59 Intake Total 2228 3125.7 Output Total 655 1195 120 Balance 1573 1930.7 -120 - Physical Examination Lungs: CTA Heart: other: (irregular) Abdomen: soft Extremities: other: (No edema) - Telemetry Telemetry Rhythm: Afib 80-90s - Labs Result Diagrams: 04/18/18 05:13 04/18/18 05:13 Troponin/CKMB CK-MB (CK-2) 2.2 ng/mL (0-6.6) 04/16/18 10:55 Troponin I 0.243 ng/mL (< 0.028) H 04/16/18 16:39 - Assessment/Plan 1. Afib with RVR - rate well controlled; BBlocker and Heparin 5000 units TID; cont. to monitor 2. Seizure 2nday to chronic ischemic injury in Lt frontal and parental lobe - Plan for lumber puncture; managed by neurologist 3. HTN - stable with current medication and diprivan. cont. to monitor 4. Urosepsis - On IV antibiotics; managed by PCP 5. DM type 2 - managed by PCP 6. Hyperlipidemia - on statin 7. PVD with hx of stent placement and Bilat Toe amputation in 02/2018 - on Heparin 5000units TID. MAR reviewed * Echo on 04/17/18 showed EF60-65%, mild with valve area of 2.0 sq cm, trace MR, trace AI, and mild-mod TR. Review of Systems - Review of Systems Constitutional: reports: see HPI EENTM: reports: see HPI Respiratory: reports: see HPI Cardiac (ROS): reports: see HPI ABD/GI: reports: see HPI : reports: see HPI Musculoskeletal: reports: see HPI
[2018-04-18 08:41] LABS: INR-International Normal Ratio 1.2; PTT 27.6 SEC (22.9-36.1); Prothrombin Time 14.9 SEC (12.0-14.7)
[2018-04-18] MEDS: levETIRAcetam In NaCl (Iso-Os) 1,500 MG in Premix Bag 1 BAG IVPB SCH ×2 (08:45→21:42)
--- NOTE | 2018-04-18 09:30 | EEG ---
Referring Physician: Ariel ABBOTT EEG # [id number] TEST TYPE: STAT PORTABLE INPATIENT REPORT: AN EEG USING THE [employer] TEN-TWENTY SYSTEM OF ELECTRODE PLACEMENT WAS PERFORMED. The background activity shows some medium amplitude theta hertz frequency slowing over both hemispheres. There is fairly constant phase-reversing sharp transients noted in the left hemisphere. Some intermittent, more generalized, poly sharp and slow wave activity was seen over both hemispheres. Photic stimulation was unremarkable. No sleep transients were noted. IMPRESSION: THIS IS AN ABNORMAL STUDY FOR THE FINDINGS OF DIFFUSE SLOWING WITH FOCAL EPILEPTIFORM FEATURES IN THE LEFT HEMISPHERE WITH SOME INTERMITTENT GENERALIZATION CONSISTENT WITH SOME SUBCLINICAL SEIZURE ACTIVITY. Operator Assistant I Cementing: erika Waste [employer] Pumper: [email or web address] [place]
[2018-04-18 10:30] LABS: Color Of CSF Supernatant COLORLESS (Colorless); Tube # 2; Unspun CSF Color COLORLESS (Colorless)
[2018-04-18 10:38] LABS: CSF Source CSF; Clarity Clear (Clear); RBC Count - Manual 48 /cumm (None Seen); Tube # 4; WBC/NonHematics Count - Manual 3 /cumm (0-5)
--- NOTE | 2018-04-18 10:47 | PRG ---
DATE OF SERVICE: 04/18/2018 SERVICE: Pulmonary Medicine INTERVAL HISTORY: Yesterday evening, EEG confirmed nonconvulsive status epilepticus. Antiepileptic drugs were escalated. He was restarted on propofol. There has been no evidence of recurrence at this point. He currently cannot provide any additional elements of the history. He is going to be going down for an LP today. PHYSICAL EXAMINATION: VITAL SIGNS: Afebrile, currently with a T-max overnight of 100.9 yesterday. Pulse 86, blood pressure 134/65, respirations 17, saturation 100% on 21% FiO2 and a PEEP of 5. GENERAL: Patient is intubated and sedated. HEENT: Normocephalic, atraumatic. Sclerae are white, conjunctivae pink. Oral mucosa is moist without lesions. LUNGS: Decent air entry. There is a prolonged expiratory phase. No wheezing or rhonchi. HEART: Normal rate, regular. ABDOMEN: Soft, nontender, nondistended. Bowel sounds are positive. MUSCULOSKELETAL: No cyanosis or clubbing. There is no pitting in the bilateral lower extremities. LABORATORY DATA: WBC 14.3 and down trending, hemoglobin 14.2, platelets 142, 000. Band count is 6%. INR 1.2. PH 7.31, pCO2 of 59, pO2 59. Creatinine down trending to 1.01, BUN 31. Basic metabolic profile, magnesium and phosphorus all fall within the normal limits. Vancomycin trough is 14.6. Coag negative Staph is growing in 2/2 blood cultures. Urine cultures are negative to date. IMAGING: Echocardiogram demonstrates normal ejection fraction with mild left ventricular hypertrophy. The left ventricle appears mildly dilated. Aortic stenosis is present with a valve area of 2 square cm. An MRI of the brain: Numerous foci of restricted diffusion noted within the left cerebral hemisphere, suggesting multifocal acute infarction. There is also abnormal signal intensity within the mesial temporal lobe on the left. Encephalitis is included in this differential. ASSESSMENT: 1. Respiratory failure secondary to inability to protect airway. 2. Non-convulsive status epilepticus. 3. Metabolic encephalopathy. 4. Cerebrovascular accident , multiple, likely embolic from a left carotid disease. 5. Severe sepsis. 6. Bacteremia secondary to coag negative staph. 7. Chronic obstructive pulmonary disease with acute exacerbation. 8. Abnormal inflammatory changes of the left limbic system, possibly consistent with encephalitis. PLAN: We have escalated our antiepileptic drugs. I will keep him down for the next 24 hours. We will wake him up from sedation tomorrow morning and if he is more appropriate, extubation can be considered. LP will be performed today to exclude the possibility of encephalitis. We will repeat an EEG today to make certain that the subclinical seizures have been suppressed on his propofol. Critical care time: 30 minutes. PURVID
[2018-04-18 10:49] LABS: CSF, Glucose 124 mg/dl (40-70); CSF, Protein 86 mg/dL (15-40)
[2018-04-18] MEDS: Carvedilol 3.125 MG TAB PO SCH ×2 (11:23→17:37)
[2018-04-18] MEDS: Losartan 25 MG TAB PO SCH (11:23)
[2018-04-18] MEDS: Vancomycin HCl 1 GM in Premix Bag 1 BAG IVPB SCH ×2 (11:26→22:42)
[2018-04-18] MEDS: Fosphenytoin Sodium 100 MG in Sodium Chloride 0.9% 50 ML IVPB SCH ×3 (11:26→21:42)
[2018-04-18] MEDS: Insulin Regular 300 UNITS/3 ML VIAL SC PRN ×3 (11:38→21:44)
--- NOTE | 2018-04-18 11:59 | PDOC.PN ---
- Subjective Encounter Start Date: 04/18/18 Encounter Start Time: 12:16 Seen and examined. Patient admitted for status epilepticus, respiratory failure and new CVA. - Objective Vital Signs & Weight: Vital Signs (12 hours) Temp Pulse Resp BP Pulse Ox 04/18/18 10:53 85 90/32 L 04/18/18 10:00 17 04/18/18 09:22 85 04/18/18 08:00 20 04/18/18 07:56 99.5 F 95 17 96 04/18/18 07:37 95 149/78 H 04/18/18 06:00 19 04/18/18 04:00 18 04/18/18 02:00 20 04/18/18 00:11 85 16 100 04/18/18 00:00 18 Weight Admit Weight 166 lb Weight 169 lb 12.095 oz Most Recent Monitor Data Heart Rate from ECG 83 NIBP 124/33 NIBP BP-Mean 46 Respiration from ECG 17 SpO2 100 I&O: 04/17/18 04/18/18 04/19/18 06:59 06:59 06:59 Intake Total 2228 3125.7 Output Total 655 1195 312 Balance 1573 1930.7 -312 Result Diagrams: 04/18/18 05:13 04/18/18 05:13 Additional Labs: Accuchecks 04/18/18 04/18/18 04/17/18 11:39 04:15 22:31 POC Glucose 186 H 200 H 212 H 04/17/18 16:58 POC Glucose 203 H Phys Exam - Physical Examination Constitutional: NAD HEENT: moist MMs, TM's clear, oral pharynx no lesions Respiratory: no wheezing, no rales, no rhonchi, clear to auscultation bilateral Cardiovascular: RRR, no significant murmur, no rub Gastrointestinal: soft, non-tender, no distention, positive bowel sounds Musculoskeletal: no edema, pulses present Intubated and sedated Skin: no rash, normal turgor Dx/Plan (1) Acute respiratory failure with hypoxia and hypercapnia Code(s): J96.01 - ACUTE RESPIRATORY FAILURE WITH HYPOXIA; J96.02 - ACUTE RESPIRATORY FAILURE WITH HYPERCAPNIA Status: Acute Comment: 2/2 inability to protect airway. Intubated and sedated. 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 Diabetes mellitus complication status: with neurologic complications Diabetes mellitus complication detail: with polyneuropathy Qualified Code(s): E11.42 - Type 2 diabetes mellitus with diabetic polyneuropathy (7) HLD (hyperlipidemia) Code(s): E78.5 - HYPERLIPIDEMIA, UNSPECIFIED Status: Chronic Qualifiers: Hyperlipidemia type: unspecified Qualified Code(s): E78.5 - Hyperlipidemia , unspecified (8) PVD (peripheral vascular disease) Code(s): I73.9 - PERIPHERAL VASCULAR DISEASE, UNSPECIFIED Status: Chronic (9) CINTIA (acute kidney injury) Code(s): N17.9 - ACUTE KIDNEY FAILURE, UNSPECIFIED Status: Resolved (10) Hypokalemia Code(s): E87.6 - HYPOKALEMIA Status: Resolved (11) Bacteremia due to Gram-positive bacteria Code(s): R78.81 - BACTEREMIA Status: Acute - Plan cont current plan of care, hernandez catheter, continue antibiotics, DVT proph w/ heparin MRI showed multifocal acute infarction and possible encephalitis. Blood culture grew Coagulase negative staph Continue broad spectrum antibiotics- Vanc, Cefemime for possible meningeal source of sepsis. 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 f/u LP results. Review of Systems - Medications/Allergies Allergies/Adverse Reactions: Allergies Allergy/AdvReac Type Severity Reaction Status Date / Time No Known Allergies Allergy Unverified 04/16/18 12:16 Medications: Current Medications Acetaminophen (Tylenol Elixir) 650 mg PO Q6H PRN PRN Reason: Fever > 101 or Mild Pain Acetaminophen (Tylenol) 650 mg HI Q6H PRN PRN Reason: Fever > 101 or Mild Pain Albuterol/Ipratropium (Duoneb) 3 ml NEB [id number] [facility] Last Admin: 04/18/18 07:37 Dose: 3 ml Amlodipine Besylate (Norvasc) 5 mg PO 2100 [facility] Atorvastatin Calcium (Lipitor) 80 mg PO HS [facility] Last Admin: 04/17/18 20:21 Dose: 80 mg Carvedilol (Coreg) 12.5 mg PO BID-WM [facility] Last Admin: 04/18/18 11:23 Dose: Not Given Dextrose/Water (Dextrose 50%) 25 gm SLOW IVP PRN PRN PRN Reason: Hypoglycemia Famotidine (Pepcid) 20 mg SLOW IVP Q12HR [facility] Last Admin: 04/17/18 20:52 Dose: 20 mg Glucagon (Glucagon) 1 mg IM PRN PRN PRN Reason: Hypoglycemia Heparin Sodium (Porcine) (Heparin) 5,000 units SC TID [facility] Last Admin: 04/18/18 07:55 Dose: Not Given Hydralazine HCl (Apresoline) 10 mg SLOW IVP Q6H PRN PRN Reason: Hypertension Last Admin: 04/16/18 22:31 Dose: 10 mg Vancomycin HCl 1 gm/ Device 200 mls @ 200 mls/hr IVPB 1100,2300 [facility] Last Admin: 04/18/18 11:26 Dose: 200 mls Potassium Chloride 40 meq/ (Sodium Chloride) 270 mls @ 135 mls/hr IVPB ASDIR PRN PRN Reason: FOR SERUM K+ 2.5 - 3.5 Potassium Chloride 40 meq/ (Device) 100 mls @ 50 mls/hr IVPB ASDIR PRN PRN Reason: FOR SERUM K+ 2.5 - 3.5 Magnesium Sulfate 1 gm/ Sodium (Chloride) 102 mls @ 102 mls/hr IV PRN PRN PRN Reason: MAG LEVEL 1.4 - 2.0 Magnesium Sulfate 2 gm/ Device 100 mls @ 100 mls/hr IVPB ASDIR PRN PRN Reason: MAGNESIUM < 1.4 Potassium Phosphate 9 mmol/ (Sodium Chloride) 103 mls @ 25.75 mls/hr IVPB ASDIR PRN PRN Reason: Phosphate 1.0-1.8 Potassium Phosphate 12 mmol/ (Sodium Chloride) 254 mls @ 63.5 mls/hr IV ASDIR PRN PRN Reason: Serum phosphate 0.5-0.9 Potassium Phosphate 15 mmol/ (Sodium Chloride) 255 mls @ 63.75 mls/hr IV ASDIR PRN PRN Reason: Serum Phos < 0.5 Cefepime HCl 2 gm/ Sodium (Chloride) 100 mls @ 200 mls/hr IVPB 0500,1700 [facility] Last Admin: 04/18/18 04:07 Dose: 100 mls Fentanyl Citrate 2,000 mcg/ (Sodium Chloride) 100 mls @ 0 mls/hr IV INF PRAVEEN; Per Protocol PRN Reason: Protocol Stop: 05/16/18 16:42 Fentanyl Citrate (Fentanyl Bolus) 250 mls @ 0 mls/hr IVPB PRN PRN; As Directed PRN Reason: Breakthrough pain/agitation Stop: 05/16/18 16:42 Levetiracetam 1,500 mg/ Device 100 mls @ 200 mls/hr IVPB BID [facility] Last Admin: 04/18/18 08:45 Dose: 100 mls Sodium Chloride (1/2 Normal Saline) 1,000 mls @ 75 mls/hr IV .[id number] [facility] Last Admin: 04/17/18 23:39 Dose: 1,000 mls Dextrose/Water (D5w) 1,000 mls @ 0 mls/hr IV .Q0M PRN; As Directed PRN Reason: Hypoglycemia Acyclovir Sodium 700 mg/ (Sodium Chloride) 114 mls @ 114 mls/hr IVPB 0400,1200, 2000 [facility] Last Admin: 04/18/18 11:26 Dose: 114 mls Fosphenytoin Sodium 100 mg/ (Sodium Chloride) 52 mls @ 104 mls/hr IVPB TID [facility] Last Admin: 04/18/18 11:26 Dose: 52 mls Insulin Human Lispro (Humalog) 0 units SC .BEDTIME SLIDING SC PRN PRN Reason: Bedtime Correctional Scale Last Admin: 04/18/18 04:14 Dose: 2 unit Insulin Human Regular (Humulin R) 0 units SC .MODERATE SLIDING SC PRN PRN Reason: Moderate Correctional Scale Last Admin: 04/18/18 11:38 Dose: 2 unit Labetalol HCl (Normodyne) 20 mg SLOW IVP Q15MIN PRN PRN Reason: SBP Greater Than 180 Last Admin: 04/17/18 17:06 Dose: 20 mg Lorazepam (Ativan) 2 mg SLOW IVP Q15MIN PRN PRN Reason: Seizures Losartan Potassium (Cozaar) 50 mg PO DAILY [facility] Last Admin: 04/18/18 11:23 Dose: Not Given Magnesium Oxide (Magnesium Oxide) 400 mg PO BIDPRN PRN PRN Reason: FOR SERUM MAG 1.4 - 2.0 Magnesium Oxide (Magnesium Oxide) 800 mg PO PRN PRN PRN Reason: FOR SERUM MAG < 1.4 Metoprolol Tartrate (Lopressor) 5 mg IVP Q6H PRN PRN Reason: To Control Heart Rate Miscellaneous Medication (Phos-Nak) 1 pkt PO TIDPRN PRN PRN Reason: FOR PHOS LEVEL 1.0 - 1.8 Miscellaneous Medication (Phos-Nak) 2 pkt PO TIDPRN PRN PRN Reason: FOR PHOS LEVEL 0.5 - 1.0 Ccu Electrolyte (Replacement Protocol) 0 each FS PRN PRN PRN Reason: FOR ELECTROLYTE REPLACEMENT Potassium Chloride (K-Dur) 40 meq PO ASDIR PRN PRN Reason: FOR SERUM K+ 2.5 - 3.5 Potassium Chloride (Klor-Con) 40 meq PER TUBE ASDIR PRN PRN Reason: FOR SERUM K+ 2.5-3.5 Last Admin: 04/17/18 06:37 Dose: 40 meq Propofol (Diprivan) 1,000 mg IV INF PRN; Protocol PRN Reason: TO ACHIEVE GOAL RASS Stop: 05/16/18 16:42 Last Admin: 04/18/18 06:06 Dose: 1,000 mg Propofol (Diprivan Bolus) 20 mg IV Q5MIN PRN PRN Reason: BREAKTHROUGH AGITATION Stop: 05/16/18 16:42 Sodium Chloride (Flush - Normal Saline) 10 ml IVF Q12HR [facility] Last Admin: 04/17/18 20:21 Dose: 10 ml Sodium Chloride (Flush - Normal Saline) 10 ml IVF PRN PRN PRN Reason: Saline Flush
--- NOTE | 2018-04-18 12:23 | RAD ---
LUMBAR PUNCTURE WITH FLUOROSCOPIC GUIDANCE: Date: 04/18/18 HISTORY: Altered mental status, fever, and seizure. Clinical concern for meningitis. FINDINGS: Informed consent obtained prior to the procedure. Patient was placed in the oblique prone position on the fluoroscopic table and skin overlying the lower lumbar spine was prepped and draped in the meri l sterile fashion. The patient was intubated during this procedure and was monitored during the procedure by the patient 's ICU nurse, as well as a member of the division of respiratory therapy. Skin at the L4-5 level was anesthetized with 1% buffered lidocaine. A 22 gauge spinal needle was adva nced into the thecal sac with fluoroscopic guidance. Removal of the stylette yields clear cerebrospin al fluid. Opening pressure was 10 cm/water. Approximately 10 mL of clear CSF was obtained and sent to the laboratory for assessment. Exposure Data: 0.4 minutes fluoroscopic time, 89.9 mGy*cm^2. IMPRESSION: Successful fluoroscopic guided lumbar puncture as above. POS: ZOHRA
[2018-04-18] MEDS: Famotidine/PF 20 mg/2ml Vial SLOW IVP SCH ×2 (13:08→21:41)
[2018-04-18] MEDS: Sodium Chloride 0.45% 1,000 ML IV SCH (13:09)
--- NOTE | 2018-04-18 21:13 | PRG ---
DATE OF SERVICE: 04/18/2018 Mr. Powell remains intubated and sedated on propofol. Earlier, he had a continuous EEG, which showed some diffuse slowing and some periodic sharp activity out of the left hemisphere. No sustained epile ptiform activity was present. The patient since been loaded with fosphenytoin 1000 mg and was on a m aintenance dose. He was continued on his Keppra 1500 mg twice a day. He has been having some interm ittent fever, which has settled down today. He had a lumbar puncture, which showed 3 white cells and 48 red cells. Fluid was clear and colorless. His protein and glucose were both elevated with a pro tein of 83. He has been started on acyclovir. No visible seizure activity has been noted. I reviewed his MRI of the brain, which shows the area of abnormal signal within the left temporal lob e. This could represent either an infarct or herpes encephalitis. Thus far, CSF does not appear all that impressive for infection. We would continue the acyclovir until we have his herpes antibodies back. We can try to discontinue the Diprivan and see if his seizure activity returns and whether he shows any signs of wakefulness.
[2018-04-18] MEDS: Atorvastatin Calcium 40 MG TAB PO SCH (21:41)
[2018-04-18] MEDS: Amlodipine 5 MG TAB PO SCH (21:41)
[2018-04-18 22:29] LABS: Vancomycin, Trough 21.5 ug/mL
[2018-04-19] MEDS: Propofol 1,000 MG/100 ML VIAL IV PRN ×3 (01:30→21:09)
[2018-04-19] MEDS: Cefepime 2 GM in Sodium Chloride 0.9% 100 ML IVPB SCH ×2 (04:11→17:10)
[2018-04-19] MEDS: Sodium Chloride 0.45% 1,000 ML IV SCH ×2 (04:12→15:06)
[2018-04-19] MEDS: Insulin Regular 300 UNITS/3 ML VIAL SC PRN ×3 (06:23→23:21)
--- NOTE | 2018-04-19 08:02 | PRG ---
DATE OF SERVICE: 04/19/2018 Thirty minutes critical care time. This patient remains intubated on mechanical ventilation. His sedation is just being turned off as I examine him. Apparently, he is intubated due to status epilepticus. PHYSICAL EXAMINATION: VITAL SIGNS: Temperature is 98.8 with a T-max of 99.0, pulse is 106, blood pressure 178/75. 24 hour intake 3504, output 1373. Weight 173 pounds. HEENT: Pupils react. Sclerae anicteric. Oropharynx clear. NECK: No JVD. LUNGS: Clear without wheezing or rhonchi. CARDIAC: S1, S2 regular, without murmur. ABDOMEN: Soft, nontender, nondistended. EXTREMITIES: No clubbing, cyanosis, or edema. LABORATORY DATA: White blood cell count 14.3, hemoglobin 14.2, hematocrit 43.5, platelet count 142. No chemistry was done today. ASSESSMENT: 1. Status epilepticus. 2. Acute respiratory failure requiring mechanical ventilation. 3. Metabolic encephalopathy. 4. Cerebrovascular accident. 5. Sepsis at the time of admission. 6. Chronic obstructive pulmonary disease with acute exacerbation. PLAN: He is not weanable until his mental status improves. I am having sedation held this morning s o that I can reevaluate his neuro status.
[2018-04-19] MEDS: hydrALAZINE 20 MG/ML VIAL SLOW IVP PRN (08:23)
[2018-04-19] MEDS: Losartan 25 MG TAB PO SCH (08:26)
[2018-04-19] MEDS: Carvedilol 3.125 MG TAB PO SCH ×2 (08:27→17:10)
[2018-04-19] MEDS: Heparin 5,000 UNITS/ML VIAL SC SCH ×3 (08:28→20:39)
[2018-04-19] MEDS: Clopidogrel Bisulfate 75 MG TAB PER TUBE SCH (08:42)
[2018-04-19] MEDS: Fosphenytoin Sodium 100 MG in Sodium Chloride 0.9% 50 ML IVPB SCH ×3 (08:45→20:34)
[2018-04-19] MEDS: levETIRAcetam In NaCl (Iso-Os) 1,500 MG in Premix Bag 1 BAG IVPB SCH ×2 (08:48→20:34)
[2018-04-19] MEDS: Pantoprazole 40 MG VIAL IVP SCH (09:09)
[2018-04-19] MEDS: Vancomycin HCl 1 GM in Premix Bag 1 BAG IVPB SCH ×2 (10:36→23:21)
--- NOTE | 2018-04-19 11:25 | PDOC.CTH ---
Cardiology Progress Note - Subjective The pt seen and examined. No overnight events. Per RN, the pt's HR and BP increased while his Diprivan was on hold. Remains on Mechanical vent support with Diprivan. - Objective Vital Signs Temp Pulse Resp BP 04/19/18 10:24 98 165/72 H 04/19/18 08:23 126 H 188/104 H 04/19/18 07:22 91 178/75 H 04/19/18 07:00 98.3 F 04/19/18 06:00 20 04/19/18 04:00 25 H 04/19/18 02:00 21 H 04/19/18 00:00 22 H Admit Weight 166 lb 2.273 oz Weight 173 lb 1.006 oz 04/18/18 04/19/18 04/20/18 06:59 06:59 06:59 Intake Total 3125.7 3504 Output Total 1195 1373 50 Balance 1930.7 2131 -50 - Physical Examination Neck: no JVD present Lungs: other: (diminished at bases) Heart: other: (irregualr) Abdomen: soft Extremities: other: (generalized edema) - Telemetry Telemetry Rhythm: Afib 80-90s - Labs Result Diagrams: 04/18/18 05:13 04/18/18 05:13 Troponin/CKMB CK-MB (CK-2) 2.2 ng/mL (0-6.6) 04/16/18 10:55 Troponin I 0.243 ng/mL (< 0.028) H 04/16/18 16:39 - Assessment/Plan 1. Afib with RVR - rate well controlled; BBlocker and Heparin 5000 units TID; cont. to monitor 2. 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 HTN - stable with current medication and diprivan. cont. to monitor 4. Urosepsis - On IV antibiotics; managed by PCP 5. DM type 2 - managed by PCP 6. Hyperlipidemia - on statin 7. PVD with hx of stent placement and Bilat Toe amputation in 02/2018 - on Heparin 5000units TID. MAR reviewed * Echo on 04/17/18 showed EF60-65%, mild with valve area of 2.0 sq cm, trace MR, trace AI, and mild-mod TR. * MRI showed multifocal acute infarction and possible encephalitis. Review of Systems - Review of Systems Constitutional: reports: see HPI
[2018-04-19] MEDS: HumaLOG 300 UNITS/3 ML VIAL SC PRN (11:42)
--- NOTE | 2018-04-19 12:40 | PDOC.PN ---
- Subjective Encounter Start Date: 04/19/18 Encounter Start Time: 12:35 Patient Seen and examined. Patient admitted for status epilepticus, sepsis respiratory failure and new CVA. - Objective MAR Reviewed: Yes Vital Signs & Weight: Vital Signs (12 hours) Temp Pulse Resp BP 04/19/18 10:24 98 165/72 H 04/19/18 08:23 126 H 188/104 H 04/19/18 08:00 98.3 F 04/19/18 07:22 91 178/75 H 04/19/18 07:00 98.3 F 04/19/18 06:00 20 04/19/18 04:00 25 H 04/19/18 02:00 21 H Weight Admit Weight 166 lb 2.273 oz Weight 173 lb 1.006 oz Most Recent Monitor Data Heart Rate from ECG 97 NIBP 161/67 NIBP BP-Mean 108 Respiration from ECG 19 SpO2 99 I&O: 04/18/18 04/19/18 04/20/18 06:59 06:59 06:59 Intake Total 3125.7 3504 200 Output Total 1195 1373 380 Balance 1930.7 2131 -180 Result Diagrams: 04/18/18 05:13 04/18/18 05:13 Additional Labs: Accuchecks 04/19/18 04/19/18 04/18/18 11:02 05:39 21:39 POC Glucose 223 H 194 H 179 H 04/18/18 16:33 POC Glucose 199 H Phys Exam - Physical Examination Constitutional: NAD HEENT: moist MMs, sclera anicteric Neck: supple, full ROM Respiratory: no wheezing, no rales, no rhonchi Cardiovascular: RRR, no significant murmur, no rub Gastrointestinal: soft, non-tender, no distention, positive bowel sounds Musculoskeletal: no edema, pulses present Unable to assess. Intubated and sedated. Dx/Plan (1) Acute respiratory failure with hypoxia and hypercapnia Code(s): J96.01 - ACUTE RESPIRATORY FAILURE WITH HYPOXIA; J96.02 - ACUTE RESPIRATORY FAILURE WITH HYPERCAPNIA Status: Acute Comment: 2/2 inability to protect airway. Intubated and sedated. (2) Atrial fibrillation with RVR Code(s): I48.91 - UNSPECIFIED ATRIAL FIBRILLATION Status: Acute (3) Status epilepticus Code(s): G40.901 - EPILEPSY, UNSP, NOT INTRACTABLE, WITH STATUS EPILEPTICUS Status: Acute (4) CVA (cerebral vascular accident) Code(s): I63.9 - CEREBRAL INFARCTION, UNSPECIFIED Status: Acute Qualifiers: CVA mechanism: embolism Laterality of affected vessel: left (5) Hypertensive emergency Code(s): I16.1 - HYPERTENSIVE EMERGENCY Status: Resolved (6) DM2 (diabetes mellitus, type 2) Status: Chronic Qualifiers: Diabetes mellitus long-term insulin use: without long-term use Diabetes mellitus complication status: with neurologic complications Diabetes mellitus complication detail: with polyneuropathy Qualified Code(s): E11.42 - Type 2 diabetes mellitus with diabetic polyneuropathy (7) HLD (hyperlipidemia) Code(s): E78.5 - HYPERLIPIDEMIA, UNSPECIFIED Status: Chronic Qualifiers: Hyperlipidemia type: unspecified Qualified Code(s): E78.5 - Hyperlipidemia , unspecified (8) PVD (peripheral vascular disease) Code(s): I73.9 - PERIPHERAL VASCULAR DISEASE, UNSPECIFIED Status: Chronic (9) CINTIA (acute kidney injury) Code(s): N17.9 - ACUTE KIDNEY FAILURE, UNSPECIFIED Status: Resolved (10) Hypokalemia Code(s): E87.6 - HYPOKALEMIA Status: Resolved (11) Bacteremia due to Gram-positive bacteria Code(s): R78.81 - BACTEREMIA Status: Acute - Plan cont current plan of care, continue antibiotics MRI showed multifocal acute infarction and possible encephalitis. 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 Review of Systems - Medications/Allergies Allergies/Adverse Reactions: Allergies Allergy/AdvReac Type Severity Reaction Status Date / Time No Known Allergies Allergy Unverified 04/16/18 12:16 Medications: Current Medications Acetaminophen (Tylenol Elixir) 650 mg PO Q6H PRN PRN Reason: Fever > 101 or Mild Pain Acetaminophen (Tylenol) 650 mg NC Q6H PRN PRN Reason: Fever > 101 or Mild Pain Albuterol/Ipratropium (Duoneb) 3 ml NEB [id number] [facility] Last Admin: 04/19/18 07:19 Dose: 3 ml Amlodipine Besylate (Norvasc) 5 mg PO 2100 [facility] Last Admin: 04/18/18 21:41 Dose: 5 mg Atorvastatin Calcium (Lipitor) 80 mg PO HS [facility] Last Admin: 04/18/18 21:41 Dose: 80 mg Carvedilol (Coreg) 12.5 mg PO BID-[facility] Last Admin: 04/19/18 08:27 Dose: 12.5 mg Clopidogrel Bisulfate (Plavix) 75 mg PER TUBE DAILY [facility] Last Admin: 04/19/18 08:42 Dose: 75 mg Dextrose/Water (Dextrose 50%) 25 gm SLOW IVP PRN PRN PRN Reason: Hypoglycemia Glucagon (Glucagon) 1 mg IM PRN PRN PRN Reason: Hypoglycemia Heparin Sodium (Porcine) (Heparin) 5,000 units SC TID [facility] Last Admin: 04/19/18 08:28 Dose: 5,000 units Hydralazine HCl (Apresoline) 10 mg SLOW IVP Q6H PRN PRN Reason: Hypertension Last Admin: 04/19/18 08:23 Dose: 10 mg Vancomycin HCl 1 gm/ Device 200 mls @ 200 mls/hr IVPB 1100,2300 [facility] Last Admin: 04/19/18 10:36 Dose: 200 mls Potassium Chloride 40 meq/ (Sodium Chloride) 270 mls @ 135 mls/hr IVPB ASDIR PRN PRN Reason: FOR SERUM K+ 2.5 - 3.5 Potassium Chloride 40 meq/ (Device) 100 mls @ 50 mls/hr IVPB ASDIR PRN PRN Reason: FOR SERUM K+ 2.5 - 3.5 Magnesium Sulfate 1 gm/ Sodium (Chloride) 102 mls @ 102 mls/hr IV PRN PRN PRN Reason: MAG LEVEL 1.4 - 2.0 Magnesium Sulfate 2 gm/ Device 100 mls @ 100 mls/hr IVPB ASDIR PRN PRN Reason: MAGNESIUM < 1.4 Potassium Phosphate 9 mmol/ (Sodium Chloride) 103 mls @ 25.75 mls/hr IVPB ASDIR PRN PRN Reason: Phosphate 1.0-1.8 Potassium Phosphate 12 mmol/ (Sodium Chloride) 254 mls @ 63.5 mls/hr IV ASDIR PRN PRN Reason: Serum phosphate 0.5-0.9 Potassium Phosphate 15 mmol/ (Sodium Chloride) 255 mls @ 63.75 mls/hr IV ASDIR PRN PRN Reason: Serum Phos < 0.5 Cefepime HCl 2 gm/ Sodium (Chloride) 100 mls @ 200 mls/hr IVPB 0500,1700 [facility] Last Admin: 04/19/18 04:11 Dose: 100 mls Fentanyl Citrate 2,000 mcg/ (Sodium Chloride) 100 mls @ 0 mls/hr IV INF PRAVEEN; Per Protocol PRN Reason: Protocol Stop: 05/16/18 16:42 Fentanyl Citrate (Fentanyl Bolus) 250 mls @ 0 mls/hr IVPB PRN PRN; As Directed PRN Reason: Breakthrough pain/agitation Stop: 05/16/18 16:42 Levetiracetam 1,500 mg/ Device 100 mls @ 200 mls/hr IVPB BID [facility] Last Admin: 04/19/18 08:48 Dose: 100 mls Sodium Chloride (1/2 Normal Saline) 1,000 mls @ 75 mls/hr IV .[id number] [facility] Last Admin: 04/19/18 04:12 Dose: 1,000 mls Dextrose/Water (D5w) 1,000 mls @ 0 mls/hr IV .Q0M PRN; As Directed PRN Reason: Hypoglycemia Acyclovir Sodium 700 mg/ (Sodium Chloride) 114 mls @ 114 mls/hr IVPB 0400,1200, 2000 [facility] Last Admin: 04/19/18 11:31 Dose: 114 mls Fosphenytoin Sodium 100 mg/ (Sodium Chloride) 52 mls @ 104 mls/hr IVPB TID [facility] Last Admin: 04/19/18 08:45 Dose: 52 mls Insulin Human Lispro (Humalog) 0 units SC .BEDTIME SLIDING SC PRN PRN Reason: Bedtime Correctional Scale Last Admin: 04/19/18 11:42 Dose: 2 unit Insulin Human Regular (Humulin R) 0 units SC .MODERATE SLIDING SC PRN PRN Reason: Moderate Correctional Scale Last Admin: 04/19/18 06:23 Dose: 2 unit Labetalol HCl (Normodyne) 20 mg SLOW IVP Q15MIN PRN PRN Reason: SBP Greater Than 180 Last Admin: 04/17/18 17:06 Dose: 20 mg Lorazepam (Ativan) 2 mg SLOW IVP Q15MIN PRN PRN Reason: Seizures Losartan Potassium (Cozaar) 50 mg PO DAILY [facility] Last Admin: 04/19/18 08:26 Dose: 50 mg Magnesium Oxide (Magnesium Oxide) 400 mg PO BIDPRN PRN PRN Reason: FOR SERUM MAG 1.4 - 2.0 Magnesium Oxide (Magnesium Oxide) 800 mg PO PRN PRN PRN Reason: FOR SERUM MAG < 1.4 Metoprolol Tartrate (Lopressor) 5 mg IVP Q6H PRN PRN Reason: To Control Heart Rate Miscellaneous Medication (Phos-Nak) 1 pkt PO TIDPRN PRN PRN Reason: FOR PHOS LEVEL 1.0 - 1.8 Miscellaneous Medication (Phos-Nak) 2 pkt PO TIDPRN PRN PRN Reason: FOR PHOS LEVEL 0.5 - 1.0 Ccu Electrolyte (Replacement Protocol) 0 each FS PRN PRN PRN Reason: FOR ELECTROLYTE REPLACEMENT Pantoprazole Sodium (Protonix) 40 mg IVP DAILY [facility] Last Admin: 04/19/18 09:09 Dose: 40 mg Potassium Chloride (K-Dur) 40 meq PO ASDIR PRN PRN Reason: FOR SERUM K+ 2.5 - 3.5 Potassium Chloride (Klor-Con) 40 meq PER TUBE ASDIR PRN PRN Reason: FOR SERUM K+ 2.5-3.5 Last Admin: 04/17/18 06:37 Dose: 40 meq Propofol (Diprivan) 1,000 mg IV INF PRN; Protocol PRN Reason: TO ACHIEVE GOAL RASS Stop: 05/16/18 16:42 Last Admin: 04/19/18 01:30 Dose: 1,000 mg Propofol (Diprivan Bolus) 20 mg IV Q5MIN PRN PRN Reason: BREAKTHROUGH AGITATION Stop: 05/16/18 16:42 Sodium Chloride (Flush - Normal Saline) 10 ml IVF Q12HR [facility] Last Admin: 04/19/18 08:48 Dose: 10 ml Sodium Chloride (Flush - Normal Saline) 10 ml IVF PRN PRN PRN Reason: Saline Flush Sodium Chloride (Flush - Normal Saline) 10 ml IV DAILY [facility] Last Admin: 04/19/18 08:48 Dose: 10 ml
[2018-04-19] MEDS: Amlodipine 5 MG TAB PO SCH (20:38)
[2018-04-19] MEDS: Atorvastatin Calcium 40 MG TAB PO SCH (20:39)
[2018-04-19] MEDS: Labetalol HCl 100 MG/20 ML VIAL SLOW IVP PRN (20:47)
[2018-04-20] MEDS: Sodium Chloride 0.45% 1,000 ML IV SCH (04:03)
[2018-04-20] MEDS: Insulin Regular 300 UNITS/3 ML VIAL SC PRN ×3 (04:10→18:48)
[2018-04-20] MEDS: Cefepime 2 GM in Sodium Chloride 0.9% 100 ML IVPB SCH ×2 (04:14→17:32)
[2018-04-20 05:12] LABS: Anion Gap 13 mmol/L (10-20); BUN (Urea Nitrogen) 17 mg/dL (8.4-25.7); Calc. Creatinine Clearance 123 mL/min (70-130); Calcium 8.5 mg/dL (7.8-10.44); Carbon Dioxide 23 mmol/L (23-31); Chloride 108 mmol/L (98-107); Estimated GFR-MDRD Greater than 90; Glucose 184 mg/dL (80-115); Potassium 3.3 mmol/L (3.5-5.1); Sodium 141 mmol/L (136-145)
[2018-04-20 05:36] LABS: #Eosinphils 0.3 thou/uL (0.0-0.7); #Lymphocytes 1.7 thou/uL (1.20-3.40); #Monocytes 1.5 thou/uL (0.11-0.59); #Neutrophils 7.4 thou/uL (1.40-6.50); %Basophils 0.2 % (0.0-1.0); %Eosinophils 2.7 % (0.0-10.0); %Lymphocytes 15.5 % (21.0-51.0); %Neutrophils 67.6 % (42.0-75.0); Band 1 % (5-11); Eosinophils 2 % (0-10); Hemoglobin 12.4 g/dL (14.0-18.0); Lymphocytes 11 % (21-51); MDiff Complete? YES; Mean Corpuscular HGB CONC 33.3 g/dL (32.0-36.0); Mean Corpuscular Hemoglobin 30.6 pg (27.0-31.0); Mean Corpuscular Volume 91.8 fl (80.0-94.0); Monocytes 10 % (0-10); Neutrophil 75 % (42-75); PLT Morphology Comment Appears Decreased; Platelet Count 111 thou/uL (130-400); RBC Distribution Width 15.4 % (11.5-14.5); Reactive Lymphocytes 1 % (0-10); Red Blood Cell (RBC) Count 4.04 mill/uL (4.70-6.10); White Blood Cell (WBC) Count 10.9 thou/uL (4.8-10.8)
[2018-04-20] MEDS: Propofol 1,000 MG/100 ML VIAL IV PRN ×3 (06:29→20:08)
[2018-04-20] MEDS: Potassium Chloride 20 MEQ in Premix Bag 1 BAG IVPB SCH ×2 (08:26→09:05)
[2018-04-20] MEDS: Fosphenytoin Sodium 100 MG in Sodium Chloride 0.9% 50 ML IVPB SCH ×3 (08:26→20:50)
[2018-04-20] MEDS: Pantoprazole 40 MG VIAL IVP SCH (08:29)
[2018-04-20] MEDS: Losartan 25 MG TAB PO SCH (08:30)
[2018-04-20] MEDS: Heparin 5,000 UNITS/ML VIAL SC SCH ×3 (08:30→20:50)
[2018-04-20] MEDS: Clopidogrel Bisulfate 75 MG TAB PER TUBE SCH (08:31)
[2018-04-20] MEDS: Carvedilol 3.125 MG TAB PO SCH ×2 (08:31→17:32)
[2018-04-20] MEDS: levETIRAcetam In NaCl (Iso-Os) 1,500 MG in Premix Bag 1 BAG IVPB SCH ×2 (08:32→21:25)
[2018-04-20] MEDS: Vancomycin HCl 1 GM in Premix Bag 1 BAG IVPB SCH ×2 (11:01→23:00)
--- NOTE | 2018-04-20 11:25 | PRG ---
DATE OF SERVICE: 04/20/2018 A 35 minutes critical care time. SUBJECTIVE: The patient remains intubated on mechanical ventilation. This morning, his sedation was held. He will open his eyes. He does not follow commands. He will move his left arm spontaneously and his left leg spontaneously, I can get him to move his right side very well. He has a very delay ed gag on suctioning. PHYSICAL EXAMINATION: VITAL SIGNS: His temperature is 99.3, pulse 92, blood pressure 182/97. HEENT: Unremarkable. NECK: No JVD. LUNGS: Clear without wheezing. CARDIAC: S1 and S2 regular. ABDOMEN: Soft, nontender. EXTREMITIES: Edematous. LABORATORY DATA: Sodium 141, potassium 3.3, chloride 108, CO2 23, BUN 17, creatinine 0.7, glucose 18 4. White blood cell count 10.9, hematocrit 37.1, platelet count 111. ASSESSMENT: 1. Respiratory failure requiring mechanical ventilation. 2. Status epilepticus. 3. Slowly improving encephalopathy. 4. Coag negative Staph sepsis. 5. Chronic obstructive pulmonary disease. PLAN: The patient will be kept on light sedation today and it will be held tomorrow morning in hopes of waking him up and extubate him. I would like to see him more alert than what we see him right no w.
--- NOTE | 2018-04-20 11:44 | PDOC.PN ---
- Subjective Encounter Start Date: 04/20/18 Encounter Start Time: 08:00 Pt seen for followup re: acute respiratory failure. Intubated, unable to complete ROS. - Objective MAR Reviewed: Yes Vital Signs & Weight: Vital Signs (12 hours) Temp Pulse Resp BP Pulse Ox 04/20/18 10:52 88 168/94 H 04/20/18 10:00 21 H 04/20/18 08:00 19 04/20/18 07:46 98.3 F 89 22 H 100 04/20/18 07:00 98.3 F 04/20/18 06:30 86 179/84 H 04/20/18 06:00 19 04/20/18 04:00 25 H 04/20/18 03:31 88 201/110 H 04/20/18 02:00 22 H 04/20/18 01:45 100 171/69 H 04/20/18 01:44 85 24 H 100 04/20/18 00:00 19 Weight Admit Weight 166 lb 2.273 oz Weight 176 lb 9.444 oz Most Recent Monitor Data Heart Rate from ECG 92 NIBP 186/97 NIBP BP-Mean 121 Respiration from ECG 21 SpO2 100 I&O: 04/19/18 04/20/18 04/21/18 06:59 06:59 06:59 Intake Total 3504 3516 680 Output Total 1373 3140 500 Balance 2131 376 180 Result Diagrams: 04/20/18 04:35 04/20/18 04:35 Additional Labs: Accuchecks 04/20/18 04/19/18 04/19/18 04:04 22:13 17:15 POC Glucose 187 H 190 H 162 H EKG Reviewed by me: Yes (Tele: chiara redding) Phys Exam - Physical Examination Intubated HEENT: moist MMs ETT, NG tube, no conjunctival pallor, no scleral icterus Respiratory: no wheezing, no rales, no rhonchi, clear to auscultation bilateral Cardiovascular: no rub S1, S2, irreg Gastrointestinal: soft, non-tender, no distention, positive bowel sounds Musculoskeletal: edema present Moving LLE spontaneously, no spontaneous movements in other 3 extremities Missing R great and 3rd toes, distal phalanx of L grt toe Deviation from normal: Unable to assess mood, affect or orientation to person, place or time Dx/Plan (1) Acute respiratory failure with hypoxia and hypercapnia Code(s): J96.01 - ACUTE RESPIRATORY FAILURE WITH HYPOXIA; J96.02 - ACUTE RESPIRATORY FAILURE WITH HYPERCAPNIA Status: Acute Comment: In CCU, intubated and mechanically ventilated (2) Atrial fibrillation with RVR Code(s): I48.91 - UNSPECIFIED ATRIAL FIBRILLATION Status: Acute Comment: continue Coreg (3) Bacteremia due to Gram-positive bacteria Code(s): R78.81 - BACTEREMIA Status: Acute Comment: Continue IV vancomycin (4) DM2 (diabetes mellitus, type 2) Status: Chronic Qualifiers: Diabetes mellitus longwall headgate operator insulin use: without longwall headgate operator use Diabetes mellitus complication status: with neurologic complications Diabetes mellitus complication detail: with polyneuropathy Qualified Code(s): E11.42 - Type 2 diabetes mellitus with diabetic polyneuropathy Comment: Continue accuchecks, insulin sliding scale (5) HLD (hyperlipidemia) Code(s): E78.5 - HYPERLIPIDEMIA, UNSPECIFIED Status: Chronic Qualifiers: Hyperlipidemia type: unspecified Qualified Code(s): E78.5 - Hyperlipidemia , unspecified (6) PVD (peripheral vascular disease) Code(s): I73.9 - PERIPHERAL VASCULAR DISEASE, UNSPECIFIED Status: Chronic (7) Status epilepticus Code(s): G40.901 - EPILEPSY, UNSP, NOT INTRACTABLE, WITH STATUS EPILEPTICUS Status: Resolved Comment: 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 Review of Systems - Medications/Allergies Allergies/Adverse Reactions: Allergies Allergy/AdvReac Type Severity Reaction Status Date / Time No Known Allergies Allergy Unverified 04/16/18 12:16 Medications: Current Medications Acetaminophen (Tylenol Elixir) 650 mg PO Q6H PRN PRN Reason: Fever > 101 or Mild Pain Acetaminophen (Tylenol) 650 mg [place] Q6H PRN PRN Reason: Fever > 101 or Mild Pain Albuterol/Ipratropium (Duoneb) 3 ml NEB [id number] [facility] Last Admin: 04/20/18 06:28 Dose: 3 ml Amlodipine Besylate (Norvasc) 5 mg PO 2100 [facility] Last Admin: 04/19/18 20:38 Dose: 5 mg Atorvastatin Calcium (Lipitor) 80 mg PO HS [facility] Last Admin: 04/19/18 20:39 Dose: 80 mg Carvedilol (Coreg) 12.5 mg PO BID-WM [facility] Last Admin: 04/20/18 08:31 Dose: 12.5 mg Clopidogrel Bisulfate (Plavix) 75 mg PER TUBE DAILY [facility] Last Admin: 04/20/18 08:31 Dose: 75 mg Dextrose/Water (Dextrose 50%) 25 gm SLOW IVP PRN PRN PRN Reason: Hypoglycemia Glucagon (Glucagon) 1 mg IM PRN PRN PRN Reason: Hypoglycemia Heparin Sodium (Porcine) (Heparin) 5,000 units SC TID [facility] Last Admin: 04/20/18 08:30 Dose: 5,000 units Hydralazine HCl (Apresoline) 10 mg SLOW IVP Q6H PRN PRN Reason: Hypertension Last Admin: 04/19/18 08:23 Dose: 10 mg Vancomycin HCl 1 gm/ Device 200 mls @ 200 mls/hr IVPB 1100,2300 [facility] Last Admin: 04/19/18 23:21 Dose: 200 mls Potassium Chloride 40 meq/ (Sodium Chloride) 270 mls @ 135 mls/hr IVPB ASDIR PRN PRN Reason: FOR SERUM K+ 2.5 - 3.5 Potassium Chloride 40 meq/ (Device) 100 mls @ 50 mls/hr IVPB ASDIR PRN PRN Reason: FOR SERUM K+ 2.5 - 3.5 Magnesium Sulfate 1 gm/ Sodium (Chloride) 102 mls @ 102 mls/hr IV PRN PRN PRN Reason: MAG LEVEL 1.4 - 2.0 Magnesium Sulfate 2 gm/ Device 100 mls @ 100 mls/hr IVPB ASDIR PRN PRN Reason: MAGNESIUM < 1.4 Potassium Phosphate 9 mmol/ (Sodium Chloride) 103 mls @ 25.75 mls/hr IVPB ASDIR PRN PRN Reason: Phosphate 1.0-1.8 Potassium Phosphate 12 mmol/ (Sodium Chloride) 254 mls @ 63.5 mls/hr IV ASDIR PRN PRN Reason: Serum phosphate 0.5-0.9 Potassium Phosphate 15 mmol/ (Sodium Chloride) 255 mls @ 63.75 mls/hr IV ASDIR PRN PRN Reason: Serum Phos < 0.5 Cefepime HCl 2 gm/ Sodium (Chloride) 100 mls @ 200 mls/hr IVPB 0500,1700 [facility] Last Admin: 04/20/18 04:14 Dose: 100 mls Fentanyl Citrate 2,000 mcg/ (Sodium Chloride) 100 mls @ 0 mls/hr IV INF PRAVEEN; Per Protocol PRN Reason: Protocol Stop: 05/16/18 16:42 Fentanyl Citrate (Fentanyl Bolus) 250 mls @ 0 mls/hr IVPB PRN PRN; As Directed PRN Reason: Breakthrough pain/agitation Stop: 05/16/18 16:42 Levetiracetam 1,500 mg/ Device 100 mls @ 200 mls/hr IVPB BID [facility] Last Admin: 04/20/18 08:32 Dose: 100 mls Sodium Chloride (1/2 Normal Saline) 1,000 mls @ 75 mls/hr IV .[id number] [facility] Last Admin: 04/20/18 04:03 Dose: 1,000 mls Dextrose/Water (D5w) 1,000 mls @ 0 mls/hr IV .Q0M PRN; As Directed PRN Reason: Hypoglycemia Acyclovir Sodium 700 mg/ (Sodium Chloride) 114 mls @ 114 mls/hr IVPB 0400,1200, 2000 [facility] Last Admin: 04/20/18 04:02 Dose: 114 mls Fosphenytoin Sodium 100 mg/ (Sodium Chloride) 52 mls @ 104 mls/hr IVPB TID [facility] Last Admin: 04/20/18 08:26 Dose: 52 mls Potassium Chloride 20 meq/ (Device) 100 mls @ 50 mls/hr IVPB NOW [facility] Stop: 04/21/18 07:44 Last Admin: 04/20/18 09:05 Dose: Not Given Insulin Human Lispro (Humalog) 0 units SC .BEDTIME SLIDING SC PRN PRN Reason: Bedtime Correctional Scale Last Admin: 04/19/18 11:42 Dose: 2 unit Insulin Human Regular (Humulin R) 0 units SC .MODERATE SLIDING SC PRN PRN Reason: Moderate Correctional Scale Last Admin: 04/20/18 04:10 Dose: 2 unit Labetalol HCl (Normodyne) 20 mg SLOW IVP Q15MIN PRN PRN Reason: SBP Greater Than 180 Last Admin: 04/19/18 20:47 Dose: 20 mg Lorazepam (Ativan) 2 mg SLOW IVP Q15MIN PRN PRN Reason: Seizures Losartan Potassium (Cozaar) 50 mg PO DAILY [facility] Last Admin: 04/20/18 08:30 Dose: 50 mg Magnesium Oxide (Magnesium Oxide) 400 mg PO BIDPRN PRN PRN Reason: FOR SERUM MAG 1.4 - 2.0 Magnesium Oxide (Magnesium Oxide) 800 mg PO PRN PRN PRN Reason: FOR SERUM MAG < 1.4 Metoprolol Tartrate (Lopressor) 5 mg IVP Q6H PRN PRN Reason: To Control Heart Rate Miscellaneous Medication (Phos-Nak) 1 pkt PO TIDPRN PRN PRN Reason: FOR PHOS LEVEL 1.0 - 1.8 Miscellaneous Medication (Phos-Nak) 2 pkt PO TIDPRN PRN PRN Reason: FOR PHOS LEVEL 0.5 - 1.0 Ccu Electrolyte (Replacement Protocol) 0 each FS PRN PRN PRN Reason: FOR ELECTROLYTE REPLACEMENT Pantoprazole Sodium (Protonix) 40 mg IVP DAILY [facility] Last Admin: 04/20/18 08:29 Dose: 40 mg Potassium Chloride (K-Dur) 40 meq PO ASDIR PRN PRN Reason: FOR SERUM K+ 2.5 - 3.5 Potassium Chloride (Klor-Con) 40 meq PER TUBE ASDIR PRN PRN Reason: FOR SERUM K+ 2.5-3.5 Last Admin: 04/17/18 06:37 Dose: 40 meq Propofol (Diprivan) 1,000 mg IV INF PRN; Protocol PRN Reason: TO ACHIEVE GOAL RASS Stop: 05/16/18 16:42 Last Admin: 04/20/18 08:26 Dose: 1,000 mg Propofol (Diprivan Bolus) 20 mg IV Q5MIN PRN PRN Reason: BREAKTHROUGH AGITATION Stop: 05/16/18 16:42 Sodium Chloride (Flush - Normal Saline) 10 ml IVF Q12HR [facility] Last Admin: 04/20/18 08:29 Dose: 10 ml Sodium Chloride (Flush - Normal Saline) 10 ml IVF PRN PRN PRN Reason: Saline Flush Sodium Chloride (Flush - Normal Saline) 10 ml IV DAILY [facility] Last Admin: 04/20/18 08:29 Dose: 10 ml
[2018-04-20] MEDS: hydrALAZINE 20 MG/ML VIAL SLOW IVP PRN (13:32)
[2018-04-20] MEDS: Amlodipine 5 MG TAB PO SCH (20:50)
[2018-04-20] MEDS: Atorvastatin Calcium 40 MG TAB PO SCH (20:50)
[2018-04-21 00:20] LABS: Vancomycin, Trough 18.4 ug/mL
[2018-04-21] MEDS ORDERED: Vancomycin HCl 1 GM in Premix Bag 1 BAG IVPB SCH (00:45)
[2018-04-21] MEDS: Labetalol HCl 100 MG/20 ML VIAL SLOW IVP PRN (00:47)
[2018-04-21] MEDS: Cefepime 2 GM in Sodium Chloride 0.9% 100 ML IVPB SCH ×2 (04:53→16:48)
[2018-04-21] MEDS: Heparin 5,000 UNITS/ML VIAL SC SCH ×3 (07:43→20:03)
[2018-04-21] MEDS: Carvedilol 3.125 MG TAB PO SCH (07:43)
[2018-04-21] MEDS: Clopidogrel Bisulfate 75 MG TAB PER TUBE SCH (07:43)
[2018-04-21] MEDS: Losartan 25 MG TAB PO SCH (07:43)
[2018-04-21] MEDS: Pantoprazole 40 MG VIAL IVP SCH (07:43)
[2018-04-21] MEDS: Fosphenytoin Sodium 100 MG in Sodium Chloride 0.9% 50 ML IVPB SCH ×3 (08:49→20:02)
[2018-04-21] MEDS: hydrALAZINE 20 MG/ML VIAL SLOW IVP PRN (08:50)
[2018-04-21] MEDS: levETIRAcetam In NaCl (Iso-Os) 1,500 MG in Premix Bag 1 BAG IVPB SCH ×2 (08:54→20:03)
[2018-04-21] MEDS: Potassium Chloride 20 MEQ in Premix Bag 1 BAG IVPB SCH (08:56)
[2018-04-21] MEDS: Sodium Chloride 0.45% 1,000 ML IV SCH ×3 (09:02→20:02)
--- NOTE | 2018-04-21 10:47 | PRG ---
DATE OF SERVICE: 04/21/2018 SUBJECTIVE: Mr. Powell remains intubated on mechanical ventilation. He will not follow any commands specifically, but does track with his eyes. PHYSICAL EXAMINATION: VITAL SIGNS: His temperature is 98.1, pulse 85, blood pressure 193/70. A 24-hour intake 4278, outpu t 2927. HEENT: Unremarkable. NECK: No JVD. CHEST: Clear. CARDIAC: S1 and S2 regular. ABDOMEN: Soft. EXTREMITIES: No edema. NEUROLOGIC: He will move his left side. LABORATORY DATA: It looks like he had a lab holiday today. ASSESSMENT: 1. Acute respiratory failure requiring mechanical ventilation. 2. Status epilepticus. 3. Chronic obstructive pulmonary disease. 4. Encephalopathy. 5. Right-sided neglect - this may be a lacunar infarction - MRI was done on 04/17/2018, which showed restricted diffusion in the left cerebral hemisphere, suggesting a multifocal acute infarction. Thi s certainly would go along with a diffuse right-sided weakness. PLAN: 1. Stroke therapy. 2. Decision tomorrow regarding trach or perhaps a trial of extubation. Given left-sided cerebral in farction, I would worry about his speech, also worry somewhat about brainstem involvement. The above encompassed 35 minutes critical care time.
--- NOTE | 2018-04-21 10:52 | PDOC.PN ---
- Subjective Encounter Start Date: 04/21/18 Encounter Start Time: 09:20 Pt seen for followup re: acute respiratory failure. Pt is intubated and mechanically ventilated, unable to complete ROS. - Objective MAR Reviewed: Yes Vital Signs & Weight: Vital Signs (12 hours) Temp Pulse Resp BP Pulse Ox 04/21/18 08:51 91 209/73 H 04/21/18 08:50 83 166/66 H 04/21/18 08:48 90 18 100 04/21/18 08:00 98.3 F 04/21/18 06:00 17 04/21/18 04:00 17 04/21/18 03:36 83 166/66 H 04/21/18 02:00 19 04/21/18 00:47 96 199/67 H 04/21/18 00:28 96 177/65 H 04/21/18 00:27 96 20 99 04/21/18 00:00 98.3 F 19 Weight Admit Weight 166 lb 2.273 oz Weight 2.836 oz Most Recent Monitor Data Heart Rate from ECG 92 NIBP 192/90 NIBP BP-Mean 134 Respiration from ECG 27 SpO2 100 I&O: 04/20/18 04/21/18 04/22/18 06:59 06:59 06:59 Intake Total 3516 4278 0 Output Total 3140 2927 400 Balance 376 1351 -400 Result Diagrams: 04/20/18 04:35 04/20/18 04:35 Additional Labs: Accuchecks 04/21/18 04/20/18 04/20/18 05:06 22:23 18:37 POC Glucose 168 H 126 H 177 H 04/20/18 12:01 POC Glucose 181 H EKG Reviewed by me: Yes (Tele: chiara redding) Phys Exam - Physical Examination Intubated HEENT: moist MMs, sclera anicteric ETT, pupils equal ariel Respiratory: no wheezing, no rales, no rhonchi, clear to auscultation bilateral Cardiovascular: no rub S1, S2, irreg Gastrointestinal: soft, non-tender, no distention, positive bowel sounds Moving LLE, not other three extremities Deviation from normal: Unable to assess mood, affect or orientation to person, place or time Dx/Plan (1) Acute respiratory failure with hypoxia and hypercapnia Code(s): J96.01 - ACUTE RESPIRATORY FAILURE WITH HYPOXIA; J96.02 - ACUTE RESPIRATORY FAILURE WITH HYPERCAPNIA Status: Acute Comment: In CCU, intubated and mechanically ventilated (2) Atrial fibrillation with RVR Code(s): I48.91 - UNSPECIFIED ATRIAL FIBRILLATION Status: Acute Comment: continue Coreg (3) Bacteremia due to Gram-positive bacteria Code(s): R78.81 - BACTEREMIA Status: Acute Comment: Continue IV vancomycin (4) DM2 (diabetes mellitus, type 2) Status: Chronic Qualifiers: Diabetes mellitus group home insulin use: without group home use Diabetes mellitus complication status: with neurologic complications Diabetes mellitus complication detail: with polyneuropathy Qualified Code(s): E11.42 - Type 2 diabetes mellitus with diabetic polyneuropathy Comment: Continue accuchecks, insulin sliding scale (5) HLD (hyperlipidemia) Code(s): E78.5 - HYPERLIPIDEMIA, UNSPECIFIED Status: Chronic Qualifiers: Hyperlipidemia type: unspecified Qualified Code(s): E78.5 - Hyperlipidemia , unspecified (6) PVD (peripheral vascular disease) Code(s): I73.9 - PERIPHERAL VASCULAR DISEASE, UNSPECIFIED Status: Chronic (7) Status epilepticus Code(s): G40.901 - EPILEPSY, UNSP, NOT INTRACTABLE, WITH STATUS EPILEPTICUS Status: Resolved Comment: 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 Review of Systems - Medications/Allergies Allergies/Adverse Reactions: Allergies Allergy/AdvReac Type Severity Reaction Status Date / Time No Known Allergies Allergy Unverified 04/16/18 12:16 Medications: Current Medications Acetaminophen (Tylenol Elixir) 650 mg PO Q6H PRN PRN Reason: Fever > 101 or Mild Pain Acetaminophen (Tylenol) 650 mg [place] Q6H PRN PRN Reason: Fever > 101 or Mild Pain Albuterol/Ipratropium (Duoneb) 3 ml NEB [id number] [facility] Last Admin: 04/21/18 08:48 Dose: 3 ml Amlodipine Besylate (Norvasc) 5 mg PO 2100 [facility] Last Admin: 04/20/18 20:50 Dose: 5 mg Atorvastatin Calcium (Lipitor) 80 mg PO HS [facility] Last Admin: 04/20/18 20:50 Dose: 80 mg Carvedilol (Coreg) 12.5 mg PO BID-WM [facility] Last Admin: 04/21/18 07:43 Dose: 12.5 mg Clopidogrel Bisulfate (Plavix) 75 mg PER TUBE DAILY [facility] Last Admin: 04/21/18 07:43 Dose: 75 mg Dextrose/Water (Dextrose 50%) 25 gm SLOW IVP PRN PRN PRN Reason: Hypoglycemia Glucagon (Glucagon) 1 mg IM PRN PRN PRN Reason: Hypoglycemia Heparin Sodium (Porcine) (Heparin) 5,000 units SC TID [facility] Last Admin: 04/21/18 07:43 Dose: 5,000 units Hydralazine HCl (Apresoline) 10 mg SLOW IVP Q6H PRN PRN Reason: Hypertension Last Admin: 04/21/18 08:50 Dose: 10 mg Potassium Chloride 40 meq/ (Sodium Chloride) 270 mls @ 135 mls/hr IVPB ASDIR PRN PRN Reason: FOR SERUM K+ 2.5 - 3.5 Potassium Chloride 40 meq/ (Device) 100 mls @ 50 mls/hr IVPB ASDIR PRN PRN Reason: FOR SERUM K+ 2.5 - 3.5 Magnesium Sulfate 1 gm/ Sodium (Chloride) 102 mls @ 102 mls/hr IV PRN PRN PRN Reason: MAG LEVEL 1.4 - 2.0 Magnesium Sulfate 2 gm/ Device 100 mls @ 100 mls/hr IVPB ASDIR PRN PRN Reason: MAGNESIUM < 1.4 Potassium Phosphate 9 mmol/ (Sodium Chloride) 103 mls @ 25.75 mls/hr IVPB ASDIR PRN PRN Reason: Phosphate 1.0-1.8 Potassium Phosphate 12 mmol/ (Sodium Chloride) 254 mls @ 63.5 mls/hr IV ASDIR PRN PRN Reason: Serum phosphate 0.5-0.9 Potassium Phosphate 15 mmol/ (Sodium Chloride) 255 mls @ 63.75 mls/hr IV ASDIR PRN PRN Reason: Serum Phos < 0.5 Cefepime HCl 2 gm/ Sodium (Chloride) 100 mls @ 200 mls/hr IVPB 0500,1700 [facility] Last Admin: 04/21/18 04:53 Dose: 100 mls Fentanyl Citrate 2,000 mcg/ (Sodium Chloride) 100 mls @ 0 mls/hr IV INF PRAVEEN; Per Protocol PRN Reason: Protocol Stop: 05/16/18 16:42 Fentanyl Citrate (Fentanyl Bolus) 250 mls @ 0 mls/hr IVPB PRN PRN; As Directed PRN Reason: Breakthrough pain/agitation Stop: 05/16/18 16:42 Levetiracetam 1,500 mg/ Device 100 mls @ 200 mls/hr IVPB BID [facility] Last Admin: 04/21/18 08:54 Dose: 100 mls Sodium Chloride (1/2 Normal Saline) 1,000 mls @ 75 mls/hr IV .[id number] [facility] Last Admin: 04/21/18 09:02 Dose: 1,000 mls Dextrose/Water (D5w) 1,000 mls @ 0 mls/hr IV .Q0M PRN; As Directed PRN Reason: Hypoglycemia Acyclovir Sodium 700 mg/ (Sodium Chloride) 114 mls @ 114 mls/hr IVPB 0400,1200, 2000 [facility] Last Admin: 04/21/18 04:55 Dose: 114 mls Fosphenytoin Sodium 100 mg/ (Sodium Chloride) 52 mls @ 104 mls/hr IVPB TID [facility] Last Admin: 04/21/18 08:49 Dose: 52 mls Vancomycin HCl 1 gm/ Device 200 mls @ 200 mls/hr IVPB 1200,2359 [facility] Insulin Human Lispro (Humalog) 0 units SC .BEDTIME SLIDING SC PRN PRN Reason: Bedtime Correctional Scale Last Admin: 04/19/18 11:42 Dose: 2 unit Insulin Human Regular (Humulin R) 0 units SC .MODERATE SLIDING SC PRN PRN Reason: Moderate Correctional Scale Last Admin: 04/20/18 18:48 Dose: 2 unit Labetalol HCl (Normodyne) 20 mg SLOW IVP Q15MIN PRN PRN Reason: SBP Greater Than 180 Last Admin: 04/21/18 00:47 Dose: 20 mg Lorazepam (Ativan) 2 mg SLOW IVP Q15MIN PRN PRN Reason: Seizures Last Admin: 04/21/18 01:00 Dose: 2 mg Losartan Potassium (Cozaar) 50 mg PO DAILY [facility] Last Admin: 04/21/18 07:43 Dose: 50 mg Magnesium Oxide (Magnesium Oxide) 400 mg PO BIDPRN PRN PRN Reason: FOR SERUM MAG 1.4 - 2.0 Magnesium Oxide (Magnesium Oxide) 800 mg PO PRN PRN PRN Reason: FOR SERUM MAG < 1.4 Metoprolol Tartrate (Lopressor) 5 mg IVP Q6H PRN PRN Reason: To Control Heart Rate Miscellaneous Medication (Phos-Nak) 1 pkt PO TIDPRN PRN PRN Reason: FOR PHOS LEVEL 1.0 - 1.8 Miscellaneous Medication (Phos-Nak) 2 pkt PO TIDPRN PRN PRN Reason: FOR PHOS LEVEL 0.5 - 1.0 Ccu Electrolyte (Replacement Protocol) 0 each FS PRN PRN PRN Reason: FOR ELECTROLYTE REPLACEMENT Pantoprazole Sodium (Protonix) 40 mg IVP DAILY [facility] Last Admin: 04/21/18 07:43 Dose: 40 mg Potassium Chloride (K-Dur) 40 meq PO ASDIR PRN PRN Reason: FOR SERUM K+ 2.5 - 3.5 Potassium Chloride (Klor-Con) 40 meq PER TUBE ASDIR PRN PRN Reason: FOR SERUM K+ 2.5-3.5 Last Admin: 04/21/18 08:55 Dose: 40 meq Propofol (Diprivan) 1,000 mg IV INF PRN; Protocol PRN Reason: TO ACHIEVE GOAL RASS Stop: 05/16/18 16:42 Last Admin: 04/20/18 20:08 Dose: 1,000 mg Propofol (Diprivan Bolus) 20 mg IV Q5MIN PRN PRN Reason: BREAKTHROUGH AGITATION Stop: 05/16/18 16:42 Sodium Chloride (Flush - Normal Saline) 10 ml IVF Q12HR [facility] Last Admin: 04/21/18 08:58 Dose: 10 ml Sodium Chloride (Flush - Normal Saline) 10 ml IVF PRN PRN PRN Reason: Saline Flush Sodium Chloride (Flush - Normal Saline) 10 ml IV DAILY [facility] Last Admin: 04/21/18 08:57 Dose: 10 ml
[2018-04-21] MEDS: Vancomycin HCl 1 GM in Premix Bag 1 BAG IVPB SCH (12:42)
[2018-04-21] MEDS: Propofol 1,000 MG/100 ML VIAL IV PRN ×2 (12:43→15:09)
[2018-04-21] MEDS: Insulin Regular 300 UNITS/3 ML VIAL SC PRN ×3 (12:47→22:45)
[2018-04-21] MEDS: Carvedilol 6.25 MG TAB PO SCH ×2 (15:10→20:04)
[2018-04-21] MEDS: Atorvastatin Calcium 40 MG TAB PO SCH (20:04)
[2018-04-21] MEDS: Amlodipine 5 MG TAB PO SCH (20:04)
[2018-04-22] MEDS: Vancomycin HCl 1 GM in Premix Bag 1 BAG IVPB SCH ×2 (00:14→12:26)
[2018-04-22] MEDS: Propofol 1,000 MG/100 ML VIAL IV PRN (01:38)
[2018-04-22] MEDS: Cefepime 2 GM in Sodium Chloride 0.9% 100 ML IVPB SCH (05:00)
[2018-04-22 06:07] LABS: #Eosinphils 0.8 thou/uL (0.0-0.7); #Lymphocytes 1.3 thou/uL (1.20-3.40); #Monocytes 0.9 thou/uL (0.11-0.59); #Neutrophils 8.2 thou/uL (1.40-6.50); %Basophils 0.4 % (0.0-1.0); %Eosinophils 7.1 % (0.0-10.0); %Lymphocytes 11.8 % (21.0-51.0); %Monocytes 8.1 % (0.0-10.0); %Neutrophils 72.6 % (42.0-75.0); Hemoglobin 11.3 g/dL (14.0-18.0); Mean Corpuscular HGB CONC 34.8 g/dL (32.0-36.0); Mean Corpuscular Hemoglobin 31.2 pg (27.0-31.0); Mean Corpuscular Volume 89.7 fl (80.0-94.0); Mean Platelet Volume 8.4 fL (7.4-10.4); Platelet Count 152 thou/uL (130-400); RBC Distribution Width 15.4 % (11.5-14.5); Red Blood Cell (RBC) Count 3.62 mill/uL (4.70-6.10); White Blood Cell (WBC) Count 11.2 thou/uL (4.8-10.8)
[2018-04-22 06:34] LABS: Anion Gap 12 mmol/L (10-20); BUN (Urea Nitrogen) 14 mg/dL (8.4-25.7); Calc. Creatinine Clearance 121 mL/min (70-130); Calcium 8.6 mg/dL (7.8-10.44); Carbon Dioxide 25 mmol/L (23-31); Chloride 109 mmol/L (98-107); Estimated GFR-MDRD Greater than 90; Glucose 192 mg/dL (80-115); Potassium 3.7 mmol/L (3.5-5.1); Sodium 142 mmol/L (136-145)
[2018-04-22] MEDS: hydrALAZINE 20 MG/ML VIAL SLOW IVP PRN ×2 (06:45→20:24)
[2018-04-22 07:05] LABS: Actual Bicarbonate (HCO3a) 23.6 mEq/L (22-28); Base Excess (BEa) 0.6 mEq/L (-2.0 to +3.0); CO2 Tension 32.4 mmHg (35.0-45.0); Hemoglobin (Hb) 11.8 g/dL (14.0-18.0); pH, Arterial 7.48 (7.35-7.45)
[2018-04-22 07:06] LABS: Calcium, Ionized 1.2 mmol/L (1.12-1.30); Puncture Site LR
--- NOTE | 2018-04-22 09:08 | RAD ---
CHEST 1 VIEW: Date: 04/22/18 HISTORY: Dyspnea. COMPARISON: 04/16/18. FINDINGS: Cardiac silhouette magnified by projection. Pulmonary vasculature remains slightly engorged. Patient rotated rightward. Lines and tubes are unchanged in position. No evidence of pneumothorax. IMPRESSION: Pulmonary vascular congestion and other findings are stable. POS: OFF
[2018-04-22] MEDS: Carvedilol 6.25 MG TAB PO SCH (09:20)
[2018-04-22] MEDS: Pantoprazole 40 MG VIAL IVP SCH (09:25)
[2018-04-22] MEDS: Losartan 25 MG TAB PO SCH (09:26)
[2018-04-22] MEDS: Clopidogrel Bisulfate 75 MG TAB PER TUBE SCH (09:26)
[2018-04-22] MEDS: Heparin 5,000 UNITS/ML VIAL SC SCH ×2 (09:26→20:33)
[2018-04-22] MEDS: levETIRAcetam In NaCl (Iso-Os) 1,500 MG in Premix Bag 1 BAG IVPB SCH ×2 (09:27→20:32)
[2018-04-22] MEDS: Sodium Chloride 0.45% 1,000 ML IV SCH ×2 (09:27→14:38)
[2018-04-22] MEDS ORDERED: Carvedilol 6.25 MG TAB PO SCH ×2 (09:30→09:45)
[2018-04-22] MEDS: Fosphenytoin Sodium 100 MG in Sodium Chloride 0.9% 50 ML IVPB SCH ×3 (09:42→20:32)
--- NOTE | 2018-04-22 10:37 | PRG ---
DATE OF SERVICE: 04/22/2018 SERVICE: Pulmonary Medicine. INTERVAL HISTORY: The patient is doing fine from a respiratory standpoint. He is breathing comfortably. There have been no overnight events. From a mentation standpoint, there has been no witnessed seizure activity. He does attend. That being said, he is not following any commands. PHYSICAL EXAMINATION: VITAL SIGNS: Afebrile, pulse 99, blood pressure 178/71, respirations 19, saturation 100% on 21% FiO2 and a PEEP of 5. GENERAL: The patient is intubated. He is under the influence of a little bit of sedation. He attends. He spontaneously moves his left upper and lower extremities. That being said, there is no movement in the right upper or right lower extremities. HEENT: Normocephalic, atraumatic. Sclerae are white, conjunctivae pink. Oral and nasal mucosae are moist without lesions. LUNGS: Decent air entry. There is no prolonged expiratory phase or wheezing present. HEART: Normal rate, regular. ABDOMEN: Soft, nontender, nondistended. Bowel sounds are positive. MUSCULOSKELETAL: No cyanosis or clubbing. No pitting in the bilateral lower extremities. NEUROLOGIC: Grossly nonfocal. LABORATORY DATA: WBC 11.2, hemoglobin 11.3, platelets 152,000. Basic metabolic profile is essentially unremarkable with a potassium of 3.7. PH 7.48 , pCO2 of 32, pO2 of 80. Chest x-ray demonstrates good placement of the endotracheal tube. Pulmonary vascular congestion is, otherwise, stable. The bibasilar regions are cut off. There is pretty significant rotation on this film. Enteric catheter courses below the level of the diaphragm. ASSESSMENT: 1. Respiratory failure secondary to inability to protect airway. 2. Non-convulsive status epilepticus. 3. Metabolic encephalopathy. 4. Cerebrovascular accident, multiple, likely embolic from left carotid disease. 5. Severe sepsis, resolved. 6. Bacteremia secondary to Staphylococcus epidermidis, which demonstrates fairly tran-resistant profile. 7. Chronic obstructive pulmonary disease without acute exacerbation. 8. Encephalitis, possible. DISCUSSION AND PLAN: The herpes serologies are currently pending. We will give him a spontaneous breathing trial. If he meets criteria, extubation will be considered. Pulmonary Critical Care will continue to follow along while he certainly remains in this location. The big unknown at this time is whether or not he is going to protect his airway when the tube comes out. If he requires repeat intubation, he is unlikely to make it through this hospital stay without a tracheostomy. Critical care time: 30 minutes. TERESA
[2018-04-22] MEDS ORDERED: Heparin 5,000 UNITS/ML VIAL SC SCH (10:45)
[2018-04-22] MEDS: Insulin Regular 300 UNITS/3 ML VIAL SC PRN (12:27)
--- NOTE | 2018-04-22 15:41 | RAD ---
ONE VIEW UPPER ABDOMEN: HISTORY: Dobbhoff tube placement. FINDINGS: AP view lower chest and upper abdomen was obtained. There is placement of a Dobbhoff tube, distal tip overlying the body of the stomach. The Dobbhoff tu be distal aspect appears to be angled laterally. IMPRESSION: Dobbhoff tube appears to have distal aspect overlying the stomach. POS: [facility]
--- NOTE | 2018-04-22 16:27 | PDOC.PN ---
- Subjective Encounter Start Date: 04/22/18 Encounter Start Time: 08:00 Pt seen for followup re: acute respiratory failure with hypoxia. Intubated, unable to obtain ROS. - Objective MAR Reviewed: Yes Vital Signs & Weight: Vital Signs (12 hours) Pulse Resp BP Pulse Ox 04/22/18 13:25 88 17 100 04/22/18 11:03 100 04/22/18 10:45 100 04/22/18 10:30 99 04/22/18 09:53 211/87 H 04/22/18 09:30 211/87 H 04/22/18 09:20 211/87 H 04/22/18 07:39 99 182/74 H 100 04/22/18 06:45 92 199/72 H 04/22/18 06:00 24 H Weight Admit Weight 166 lb 2.273 oz Weight 176 lb 9.444 oz Most Recent Monitor Data Heart Rate from ECG 90 NIBP 197/75 NIBP BP-Mean 105 Respiration from ECG 13 SpO2 100 I&O: 04/21/18 04/22/18 04/23/18 06:59 06:59 06:59 Intake Total 4278 3661 Output Total 2927 2760 Balance 1351 901 Result Diagrams: 04/22/18 05:57 04/22/18 05:57 Additional Labs: Accuchecks 04/22/18 04/22/18 04/21/18 12:24 05:40 22:46 POC Glucose 193 H 186 H 177 H 04/21/18 16:46 POC Glucose 180 H EKG Reviewed by me: Yes (Tele: chiara redding) Phys Exam - Physical Examination Constitutional: NAD HEENT: moist MMs Neck: no nodes Respiratory: clear to auscultation bilateral Cardiovascular: RRR Gastrointestinal: soft Moves LLE and LUE spontaneously Deviation from normal: Unable to assess Dx/Plan (1) Acute respiratory failure with hypoxia and hypercapnia Code(s): J96.01 - ACUTE RESPIRATORY FAILURE WITH HYPOXIA; J96.02 - ACUTE RESPIRATORY FAILURE WITH HYPERCAPNIA Status: Acute Comment: Continues to be intubated and mechanically ventilated, in CCU (2) Atrial fibrillation with RVR Code(s): I48.91 - UNSPECIFIED ATRIAL FIBRILLATION Status: Acute Comment: on Coreg, rate-controlled (3) Bacteremia due to Gram-positive bacteria Code(s): R78.81 - BACTEREMIA Status: Acute Comment: Continue IV vancomycin (4) DM2 (diabetes mellitus, type 2) Status: Chronic Qualifiers: Diabetes mellitus keno terminal operator insulin use: without snf use Diabetes mellitus complication status: with neurologic complications Diabetes mellitus complication detail: with polyneuropathy Qualified Code(s): E11.42 - Type 2 diabetes mellitus with diabetic polyneuropathy Comment: On accuchecks, insulin sliding scale (5) HLD (hyperlipidemia) Code(s): E78.5 - HYPERLIPIDEMIA, UNSPECIFIED Status: Chronic Qualifiers: Hyperlipidemia type: unspecified Qualified Code(s): E78.5 - Hyperlipidemia , unspecified (6) PVD (peripheral vascular disease) Code(s): I73.9 - PERIPHERAL VASCULAR DISEASE, UNSPECIFIED Status: Chronic (7) Status epilepticus Code(s): G40.901 - EPILEPSY, UNSP, NOT INTRACTABLE, WITH STATUS EPILEPTICUS Status: Resolved Comment: 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 Review of Systems - Medications/Allergies Allergies/Adverse Reactions: Allergies Allergy/AdvReac Type Severity Reaction Status Date / Time No Known Allergies Allergy Unverified 04/16/18 12:16 Medications: Current Medications Acetaminophen (Tylenol Elixir) 650 mg PO Q6H PRN PRN Reason: Fever > 101 or Mild Pain Acetaminophen (Tylenol) 650 mg [place] Q6H PRN PRN Reason: Fever > 101 or Mild Pain Albuterol/Ipratropium (Duoneb) 3 ml NEB [id number] [facility] Last Admin: 04/22/18 13:25 Dose: 3 ml Amlodipine Besylate (Norvasc) 5 mg PO 2100 [facility] Last Admin: 04/21/18 20:04 Dose: 5 mg Atorvastatin Calcium (Lipitor) 80 mg PO HS [facility] Last Admin: 04/21/18 20:04 Dose: 80 mg Carvedilol (Coreg) 25 mg PO BID-WM [facility] Clopidogrel Bisulfate (Plavix) 75 mg PER TUBE DAILY [facility] Last Admin: 04/22/18 09:26 Dose: 75 mg Dextrose/Water (Dextrose 50%) 25 gm SLOW IVP PRN PRN PRN Reason: Hypoglycemia Glucagon (Glucagon) 1 mg IM PRN PRN PRN Reason: Hypoglycemia Heparin Sodium (Porcine) (Heparin) 5,000 units SC BID [facility] Hydralazine HCl (Apresoline) 10 mg SLOW IVP Q6H PRN PRN Reason: Hypertension Last Admin: 04/22/18 06:45 Dose: 10 mg Potassium Chloride 40 meq/ (Sodium Chloride) 270 mls @ 135 mls/hr IVPB ASDIR PRN PRN Reason: FOR SERUM K+ 2.5 - 3.5 Potassium Chloride 40 meq/ (Device) 100 mls @ 50 mls/hr IVPB ASDIR PRN PRN Reason: FOR SERUM K+ 2.5 - 3.5 Magnesium Sulfate 1 gm/ Sodium (Chloride) 102 mls @ 102 mls/hr IV PRN PRN PRN Reason: MAG LEVEL 1.4 - 2.0 Magnesium Sulfate 2 gm/ Device 100 mls @ 100 mls/hr IVPB ASDIR PRN PRN Reason: MAGNESIUM < 1.4 Potassium Phosphate 9 mmol/ (Sodium Chloride) 103 mls @ 25.75 mls/hr IVPB ASDIR PRN PRN Reason: Phosphate 1.0-1.8 Potassium Phosphate 12 mmol/ (Sodium Chloride) 254 mls @ 63.5 mls/hr IV ASDIR PRN PRN Reason: Serum phosphate 0.5-0.9 Potassium Phosphate 15 mmol/ (Sodium Chloride) 255 mls @ 63.75 mls/hr IV ASDIR PRN PRN Reason: Serum Phos < 0.5 Levetiracetam 1,500 mg/ Device 100 mls @ 200 mls/hr IVPB BID [facility] Last Admin: 04/22/18 09:27 Dose: 100 mls Dextrose/Water (D5w) 1,000 mls @ 0 mls/hr IV .Q0M PRN; As Directed PRN Reason: Hypoglycemia Acyclovir Sodium 700 mg/ (Sodium Chloride) 114 mls @ 114 mls/hr IVPB 0400,1200, 2000 [facility] Last Admin: 04/22/18 12:26 Dose: 114 mls Fosphenytoin Sodium 100 mg/ (Sodium Chloride) 52 mls @ 104 mls/hr IVPB TID [facility] Last Admin: 04/22/18 09:42 Dose: 52 mls Vancomycin HCl 1 gm/ Device 200 mls @ 200 mls/hr IVPB 1200,2359 [facility] Last Admin: 04/22/18 12:26 Dose: 200 mls Sodium Chloride (1/2 Normal Saline) 1,000 mls @ 50 mls/hr IV .Q20H [facility] Last Admin: 04/22/18 14:38 Dose: 1,000 mls Insulin Human Lispro (Humalog) 0 units SC .BEDTIME SLIDING SC PRN PRN Reason: Bedtime Correctional Scale Last Admin: 04/19/18 11:42 Dose: 2 unit Insulin Human Regular (Humulin R) 0 units SC .MODERATE SLIDING SC PRN PRN Reason: Moderate Correctional Scale Last Admin: 04/22/18 12:27 Dose: 6 unit Labetalol HCl (Normodyne) 20 mg SLOW IVP Q15MIN PRN PRN Reason: SBP Greater Than 180 Last Admin: 04/21/18 00:47 Dose: 20 mg Lorazepam (Ativan) 2 mg SLOW IVP Q15MIN PRN PRN Reason: Seizures Last Admin: 04/21/18 01:00 Dose: 2 mg Losartan Potassium (Cozaar) 50 mg PO DAILY [facility] Last Admin: 04/22/18 09:26 Dose: 50 mg Magnesium Oxide (Magnesium Oxide) 400 mg PO BIDPRN PRN PRN Reason: FOR SERUM MAG 1.4 - 2.0 Magnesium Oxide (Magnesium Oxide) 800 mg PO PRN PRN PRN Reason: FOR SERUM MAG < 1.4 Metoprolol Tartrate (Lopressor) 5 mg IVP Q6H PRN PRN Reason: To Control Heart Rate Last Admin: 04/22/18 14:42 Dose: 5 mg Miscellaneous Medication (Phos-Nak) 1 pkt PO TIDPRN PRN PRN Reason: FOR PHOS LEVEL 1.0 - 1.8 Miscellaneous Medication (Phos-Nak) 2 pkt PO TIDPRN PRN PRN Reason: FOR PHOS LEVEL 0.5 - 1.0 Ccu Electrolyte (Replacement Protocol) 0 each FS PRN PRN PRN Reason: FOR ELECTROLYTE REPLACEMENT Pantoprazole Sodium (Protonix) 40 mg IVP DAILY [facility] Last Admin: 04/22/18 09:25 Dose: 40 mg Potassium Chloride (K-Dur) 40 meq PO ASDIR PRN PRN Reason: FOR SERUM K+ 2.5 - 3.5 Potassium Chloride (Klor-Con) 40 meq PER TUBE ASDIR PRN PRN Reason: FOR SERUM K+ 2.5-3.5 Last Admin: 04/21/18 08:55 Dose: 40 meq Sodium Chloride (Flush - Normal Saline) 10 ml IVF Q12HR [facility] Last Admin: 04/22/18 09:25 Dose: 10 ml Sodium Chloride (Flush - Normal Saline) 10 ml IVF PRN PRN PRN Reason: Saline Flush Sodium Chloride (Flush - Normal Saline) 10 ml IV DAILY [facility] Last Admin: 04/22/18 09:26 Dose: 10 ml
[2018-04-22] MEDS: Carvedilol 25 MG TAB PO SCH (16:35)
[2018-04-22] MEDS: Labetalol HCl 100 MG/20 ML VIAL SLOW IVP PRN (17:26)
[2018-04-22] MEDS: Atorvastatin Calcium 40 MG TAB PO SCH (20:33)
[2018-04-22] MEDS: Amlodipine 5 MG TAB PO SCH (20:33)
[2018-04-23] MEDS: Vancomycin HCl 1 GM in Premix Bag 1 BAG IVPB SCH ×2 (00:03→12:09)
[2018-04-23] MEDS: Insulin Regular 300 UNITS/3 ML VIAL SC PRN ×3 (04:27→16:14)
[2018-04-23] MEDS: Sodium Chloride 0.45% 1,000 ML IV SCH (06:10)
[2018-04-23] MEDS: hydrALAZINE 20 MG/ML VIAL SLOW IVP PRN (06:49)
[2018-04-23 08:28] LABS: Hemoglobin 11.5 g/dL (14.0-18.0); Mean Corpuscular HGB CONC 35.3 g/dL (32.0-36.0); Mean Corpuscular Hemoglobin 31.5 pg (27.0-31.0); Mean Corpuscular Volume 89.2 fl (80.0-94.0); Mean Platelet Volume 8.4 fL (7.4-10.4); Platelet Count 184 thou/uL (130-400); RBC Distribution Width 15.6 % (11.5-14.5); Red Blood Cell (RBC) Count 3.64 mill/uL (4.70-6.10); White Blood Cell (WBC) Count 12.5 thou/uL (4.8-10.8)
[2018-04-23 08:41] LABS: Anion Gap 12 mmol/L (10-20); BUN (Urea Nitrogen) 12 mg/dL (8.4-25.7); Calc. Creatinine Clearance 137 mL/min (70-130); Calcium 8.7 mg/dL (7.8-10.44); Carbon Dioxide 25 mmol/L (23-31); Chloride 107 mmol/L (98-107); Estimated GFR-MDRD Greater than 90; Glucose 154 mg/dL (80-115); Potassium 3.9 mmol/L (3.5-5.1); Sodium 140 mmol/L (136-145)
[2018-04-23 09:04] LABS: Band 7 % (5-11); Eosinophils 5 % (0-10); Lymphocytes 9 % (21-51); MDiff Complete? YES; Monocytes 10 % (0-10); Neutrophil 68 % (42-75); RBC Morphology Normal
[2018-04-23] MEDS: Carvedilol 25 MG TAB PO SCH ×2 (09:04→16:14)
[2018-04-23] MEDS: Fosphenytoin Sodium 100 MG in Sodium Chloride 0.9% 50 ML IVPB SCH ×3 (09:04→21:08)
[2018-04-23] MEDS: Clopidogrel Bisulfate 75 MG TAB PER TUBE SCH (09:04)
[2018-04-23] MEDS: levETIRAcetam In NaCl (Iso-Os) 1,500 MG in Premix Bag 1 BAG IVPB SCH ×2 (09:05→21:09)
[2018-04-23] MEDS: Heparin 5,000 UNITS/ML VIAL SC SCH ×2 (09:05→21:09)
[2018-04-23] MEDS: Losartan 25 MG TAB PO SCH (09:06)
[2018-04-23] MEDS: Pantoprazole 40 MG VIAL IVP SCH (09:06)
--- NOTE | 2018-04-23 10:45 | PRG ---
DATE OF SERVICE: 04/23/2018 SERVICE: Pulmonary Medicine. INTERVAL HISTORY: The patient is doing fine from a respiratory standpoint. He is breathing comfortably. He seems to have a cough, and gag is intact. As such , for the most part, he is protecting his airway. He cannot provide additional elements of the history. He continues to attend, but outside of that, he is not following any commands. His blood pressures are a little bit elevated, but otherwise, there were no overnight events. PHYSICAL EXAMINATION: VITAL SIGNS: Afebrile, pulse 105, blood pressure 158/79, respirations 22, saturation 100% on 2 liters nasal cannula. GENERAL: The patient is awake and alert. He attends. He has no apparent distress. HEENT: Normocephalic, atraumatic. Sclerae are white. Conjunctivae pink. Oral and nasal mucosae are moist without lesions. LUNGS: Decent air entry. Rhonchi are present. There is no prolonged expiratory phase or wheezing appreciated. HEART: Normal rate, regular. ABDOMEN: Soft, nontender, nondistended. Bowel sounds are positive. MUSCULOSKELETAL: No cyanosis or clubbing. There is no pitting in the bilateral lower extremities. LABORATORY DATA: WBC 12.5, hemoglobin 11.5, platelets 184,000. Basic metabolic profile is completely unremarkable. Potassium 3.9, creatinine 0.67. Blood cultures are growing Staph epidermidis, which has a tran-resistant profile. Urine culture and spinal fluid culture negative to date. IMAGING: KUB demonstrates interval placement of a Dobbhoff tube overlying the stomach. ASSESSMENT: 1. Respiratory failure, secondary to inability to protect airway, resolved. 2. Non-convulsive status epilepticus. 3. Metabolic encephalopathy. 4. Cerebrovascular accident, multiple, likely embolic from left carotid disease. 5. Severe sepsis, resolved. 6. Bacteremia secondary to Staph epidermidis, which demonstrates fairly tran- resistant profile. 7. Chronic obstructive pulmonary disease without acute exacerbation. DISCUSSION AND PLAN: I will increase his blood pressure medications and free water through his flushes. We will discontinue his IV fluids. We will change him over to bolus feeding. Pulmonary Critical Care will continue to follow along while the patient remains in-house, but from my perspective, he is stable for transition to the stroke unit and/or Intermediate Care Unit. He does remain at very high risk of aspiration-related disease moving forward. [facility]
--- NOTE | 2018-04-23 16:19 | PDOC.PN ---
- Subjective Encounter Start Date: 04/23/18 Encounter Start Time: 10:00 Pt seen for followup re: acute hypoxic respiratory failure. More alert today, not answering questions. Unable to complete ROS. s/p extubation yesterday. - Objective MAR Reviewed: Yes Vital Signs & Weight: Vital Signs (12 hours) Temp Pulse Resp BP BP Pulse Ox 04/23/18 13:50 110 H 16 04/23/18 10:50 98.8 F 101 H 16 127/97 H 96 04/23/18 08:00 99.0 F 100 14 100 04/23/18 07:08 100 14 100 04/23/18 06:49 100 182/74 H Weight Admit Weight 166 lb 2.273 oz Weight 191 lb 2.252 oz Most Recent Monitor Data Heart Rate from ECG 99 NIBP 166/70 NIBP BP-Mean 117 Respiration from ECG 10 SpO2 99 I&O: 04/22/18 04/23/18 04/24/18 06:59 06:59 06:59 Intake Total 3661 3529.4 511 Output Total 2760 3907 536 Balance 901 -377.6 -25 Result Diagrams: 04/23/18 08:16 04/23/18 08:16 Additional Labs: Accuchecks 04/23/18 04/23/18 04/22/18 10:10 04:27 22:29 POC Glucose 167 H 174 H 158 H 04/22/18 16:21 POC Glucose 111 H EKG Reviewed by me: Yes (Tele: chiara redding) Phys Exam - Physical Examination Constitutional: NAD HEENT: moist MMs Neck: supple Respiratory: clear to auscultation bilateral Cardiovascular: irregular Gastrointestinal: soft, non-tender Moves LUE and LLE, no spontaneous right extremity movements Psychiatric: normal affect Dx/Plan (1) Acute respiratory failure with hypoxia and hypercapnia Code(s): J96.01 - ACUTE RESPIRATORY FAILURE WITH HYPOXIA; J96.02 - ACUTE RESPIRATORY FAILURE WITH HYPERCAPNIA Status: Acute Comment: Improving (2) Atrial fibrillation with RVR Code(s): I48.91 - UNSPECIFIED ATRIAL FIBRILLATION Status: Acute Comment: rate-controlled with Coreg (3) Bacteremia due to Gram-positive bacteria Code(s): R78.81 - BACTEREMIA Status: Acute Comment: on IV vancomycin (4) DM2 (diabetes mellitus, type 2) Status: Chronic Qualifiers: Diabetes mellitus terminal clerk insulin use: without terminal clerk use Diabetes mellitus complication status: with neurologic complications Diabetes mellitus complication detail: with polyneuropathy Qualified Code(s): E11.42 - Type 2 diabetes mellitus with diabetic polyneuropathy Comment: continue accuchecks, insulin sliding scale (5) HLD (hyperlipidemia) Code(s): E78.5 - HYPERLIPIDEMIA, UNSPECIFIED Status: Chronic Qualifiers: Hyperlipidemia type: unspecified Qualified Code(s): E78.5 - Hyperlipidemia , unspecified (6) PVD (peripheral vascular disease) Code(s): I73.9 - PERIPHERAL VASCULAR DISEASE, UNSPECIFIED Status: Chronic (7) Status epilepticus Code(s): G40.901 - EPILEPSY, UNSP, NOT INTRACTABLE, WITH STATUS EPILEPTICUS Status: Resolved Comment: 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 Review of Systems - Medications/Allergies Allergies/Adverse Reactions: Allergies Allergy/AdvReac Type Severity Reaction Status Date / Time No Known Allergies Allergy Unverified 04/16/18 12:16 Medications: Current Medications Acetaminophen (Tylenol Elixir) 650 mg PO Q6H PRN PRN Reason: Fever > 101 or Mild Pain Acetaminophen (Tylenol) 650 mg [place] Q6H PRN PRN Reason: Fever > 101 or Mild Pain Albuterol/Ipratropium (Duoneb) 3 ml NEB [id number] [facility] Last Admin: 04/23/18 13:50 Dose: 3 ml Amlodipine Besylate (Norvasc) 10 mg PO 2100 [facility] Atorvastatin Calcium (Lipitor) 80 mg PO HS [facility] Last Admin: 04/22/18 20:33 Dose: 80 mg Carvedilol (Coreg) 25 mg PO BID-WM [facility] Last Admin: 04/23/18 09:04 Dose: 25 mg Clopidogrel Bisulfate (Plavix) 75 mg PER TUBE DAILY [facility] Last Admin: 04/23/18 09:04 Dose: 75 mg Dextrose/Water (Dextrose 50%) 25 gm SLOW IVP PRN PRN PRN Reason: Hypoglycemia Glucagon (Glucagon) 1 mg IM PRN PRN PRN Reason: Hypoglycemia Heparin Sodium (Porcine) (Heparin) 5,000 units SC BID [facility] Last Admin: 04/23/18 09:05 Dose: 5,000 units Hydralazine HCl (Apresoline) 10 mg SLOW IVP Q6H PRN PRN Reason: Hypertension Last Admin: 04/23/18 06:49 Dose: 10 mg Levetiracetam 1,500 mg/ Device 100 mls @ 200 mls/hr IVPB BID [facility] Last Admin: 04/23/18 09:05 Dose: 100 mls Dextrose/Water (D5w) 1,000 mls @ 0 mls/hr IV .Q0M PRN; As Directed PRN Reason: Hypoglycemia Acyclovir Sodium 700 mg/ (Sodium Chloride) 114 mls @ 114 mls/hr IVPB 0400,1200, 2000 [facility] Last Admin: 04/23/18 11:52 Dose: 114 mls Fosphenytoin Sodium 100 mg/ (Sodium Chloride) 52 mls @ 104 mls/hr IVPB TID [facility] Last Admin: 04/23/18 09:04 Dose: 52 mls Vancomycin HCl 1 gm/ Device 200 mls @ 200 mls/hr IVPB 1200,2359 [facility] Last Admin: 04/23/18 12:09 Dose: 200 mls Insulin Human Lispro (Humalog) 0 units SC .BEDTIME SLIDING SC PRN PRN Reason: Bedtime Correctional Scale Last Admin: 04/19/18 11:42 Dose: 2 unit Insulin Human Regular (Humulin R) 0 units SC .MODERATE SLIDING SC PRN PRN Reason: Moderate Correctional Scale Last Admin: 04/23/18 10:23 Dose: 2 unit Labetalol HCl (Normodyne) 20 mg SLOW IVP Q15MIN PRN PRN Reason: SBP Greater Than 180 Last Admin: 04/22/18 17:26 Dose: 20 mg Lorazepam (Ativan) 2 mg SLOW IVP Q15MIN PRN PRN Reason: Seizures Last Admin: 04/21/18 01:00 Dose: 2 mg Losartan Potassium (Cozaar) 50 mg PO DAILY [facility] Last Admin: 04/23/18 09:06 Dose: 50 mg Metoprolol Tartrate (Lopressor) 5 mg IVP Q6H PRN PRN Reason: To Control Heart Rate Last Admin: 04/22/18 14:42 Dose: 5 mg Pantoprazole Sodium (Protonix) 40 mg IVP DAILY [facility] Last Admin: 04/23/18 09:06 Dose: 40 mg Sodium Chloride (Flush - Normal Saline) 10 ml IVF Q12HR [facility] Last Admin: 04/23/18 09:06 Dose: 10 ml Sodium Chloride (Flush - Normal Saline) 10 ml IV DAILY [facility] Last Admin: 04/23/18 09:07 Dose: 10 ml
--- NOTE | 2018-04-23 16:28 | PDOC.PN ---
- Subjective Encounter Start Date: 04/23/18 Encounter Start Time: 10:20 Pt seen for followup re: acute hypoxic respiratory failure. Not answering questions, unable to complete ROS. - Objective MAR Reviewed: Yes Vital Signs & Weight: Vital Signs (12 hours) Temp Pulse Resp BP BP Pulse Ox 04/23/18 13:50 110 H 16 04/23/18 10:50 98.8 F 101 H 16 127/97 H 96 04/23/18 08:00 99.0 F 100 14 100 04/23/18 07:08 100 14 100 04/23/18 06:49 100 182/74 H Weight Admit Weight 166 lb 2.273 oz Weight 191 lb 2.252 oz Most Recent Monitor Data Heart Rate from ECG 99 NIBP 166/70 NIBP BP-Mean 117 Respiration from ECG 10 SpO2 99 I&O: 04/22/18 04/23/18 04/24/18 06:59 06:59 06:59 Intake Total 3661 3529.4 511 Output Total 2760 3907 536 Balance 901 -377.6 -25 Result Diagrams: 04/23/18 08:16 04/23/18 08:16 Additional Labs: Accuchecks 04/23/18 04/23/18 04/22/18 10:10 04:27 22:29 POC Glucose 167 H 174 H 158 H 04/22/18 16:21 POC Glucose 111 H EKG Reviewed by me: Yes (Tele: NSR) Phys Exam - Physical Examination Constitutional: NAD HEENT: moist MMs Neck: supple Respiratory: clear to auscultation bilateral Cardiovascular: RRR Gastrointestinal: soft Neurological: moves all 4 limbs Psychiatric: normal affect Dx/Plan (1) Acute respiratory failure with hypoxia and hypercapnia Code(s): J96.01 - ACUTE RESPIRATORY FAILURE WITH HYPOXIA; J96.02 - ACUTE RESPIRATORY FAILURE WITH HYPERCAPNIA Status: Acute Comment: Improving, extubated yesterday (2) Atrial fibrillation with RVR Code(s): I48.91 - UNSPECIFIED ATRIAL FIBRILLATION Status: Acute Comment: rate-controlled with Coreg (3) Bacteremia due to Gram-positive bacteria Code(s): R78.81 - BACTEREMIA Status: Acute Comment: on IV vancomycin (4) DM2 (diabetes mellitus, type 2) Status: Chronic Qualifiers: Diabetes mellitus skilled nursing insulin use: without terminal block assembler use Diabetes mellitus complication status: with neurologic complications Diabetes mellitus complication detail: with polyneuropathy Qualified Code(s): E11.42 - Type 2 diabetes mellitus with diabetic polyneuropathy Comment: continue accuchecks, insulin sliding scale (5) HLD (hyperlipidemia) Code(s): E78.5 - HYPERLIPIDEMIA, UNSPECIFIED Status: Chronic Qualifiers: Hyperlipidemia type: unspecified Qualified Code(s): E78.5 - Hyperlipidemia , unspecified (6) PVD (peripheral vascular disease) Code(s): I73.9 - PERIPHERAL VASCULAR DISEASE, UNSPECIFIED Status: Chronic (7) Status epilepticus Code(s): G40.901 - EPILEPSY, UNSP, NOT INTRACTABLE, WITH STATUS EPILEPTICUS Status: Resolved Comment: 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 Review of Systems - Medications/Allergies Allergies/Adverse Reactions: Allergies Allergy/AdvReac Type Severity Reaction Status Date / Time No Known Allergies Allergy Unverified 04/16/18 12:16 Medications: Current Medications Acetaminophen (Tylenol Elixir) 650 mg PO Q6H PRN PRN Reason: Fever > 101 or Mild Pain Acetaminophen (Tylenol) 650 mg [place] Q6H PRN PRN Reason: Fever > 101 or Mild Pain Albuterol/Ipratropium (Duoneb) 3 ml NEB [id number] [facility] Last Admin: 04/23/18 13:50 Dose: 3 ml Amlodipine Besylate (Norvasc) 10 mg PO 2100 [facility] Atorvastatin Calcium (Lipitor) 80 mg PO HS [facility] Last Admin: 04/22/18 20:33 Dose: 80 mg Carvedilol (Coreg) 25 mg PO BID-WM [facility] Last Admin: 04/23/18 09:04 Dose: 25 mg Clopidogrel Bisulfate (Plavix) 75 mg PER TUBE DAILY [facility] Last Admin: 04/23/18 09:04 Dose: 75 mg Dextrose/Water (Dextrose 50%) 25 gm SLOW IVP PRN PRN PRN Reason: Hypoglycemia Glucagon (Glucagon) 1 mg IM PRN PRN PRN Reason: Hypoglycemia Heparin Sodium (Porcine) (Heparin) 5,000 units SC BID [facility] Last Admin: 04/23/18 09:05 Dose: 5,000 units Hydralazine HCl (Apresoline) 10 mg SLOW IVP Q6H PRN PRN Reason: Hypertension Last Admin: 04/23/18 06:49 Dose: 10 mg Levetiracetam 1,500 mg/ Device 100 mls @ 200 mls/hr IVPB BID [facility] Last Admin: 04/23/18 09:05 Dose: 100 mls Dextrose/Water (D5w) 1,000 mls @ 0 mls/hr IV .Q0M PRN; As Directed PRN Reason: Hypoglycemia Acyclovir Sodium 700 mg/ (Sodium Chloride) 114 mls @ 114 mls/hr IVPB 0400,1200, 2000 [facility] Last Admin: 04/23/18 11:52 Dose: 114 mls Fosphenytoin Sodium 100 mg/ (Sodium Chloride) 52 mls @ 104 mls/hr IVPB TID [facility] Last Admin: 04/23/18 09:04 Dose: 52 mls Vancomycin HCl 1 gm/ Device 200 mls @ 200 mls/hr IVPB 1200,2359 [facility] Last Admin: 04/23/18 12:09 Dose: 200 mls Insulin Human Lispro (Humalog) 0 units SC .BEDTIME SLIDING SC PRN PRN Reason: Bedtime Correctional Scale Last Admin: 04/19/18 11:42 Dose: 2 unit Insulin Human Regular (Humulin R) 0 units SC .MODERATE SLIDING SC PRN PRN Reason: Moderate Correctional Scale Last Admin: 04/23/18 10:23 Dose: 2 unit Labetalol HCl (Normodyne) 20 mg SLOW IVP Q15MIN PRN PRN Reason: SBP Greater Than 180 Last Admin: 04/22/18 17:26 Dose: 20 mg Lorazepam (Ativan) 2 mg SLOW IVP Q15MIN PRN PRN Reason: Seizures Last Admin: 04/21/18 01:00 Dose: 2 mg Losartan Potassium (Cozaar) 50 mg PO DAILY [facility] Last Admin: 04/23/18 09:06 Dose: 50 mg Metoprolol Tartrate (Lopressor) 5 mg IVP Q6H PRN PRN Reason: To Control Heart Rate Last Admin: 04/22/18 14:42 Dose: 5 mg Pantoprazole Sodium (Protonix) 40 mg IVP DAILY [facility] Last Admin: 04/23/18 09:06 Dose: 40 mg Sodium Chloride (Flush - Normal Saline) 10 ml IVF Q12HR [facility] Last Admin: 04/23/18 09:06 Dose: 10 ml Sodium Chloride (Flush - Normal Saline) 10 ml IV DAILY [facility] Last Admin: 04/23/18 09:07 Dose: 10 ml
[2018-04-23] MEDS: Atorvastatin Calcium 40 MG TAB PO SCH (21:09)
[2018-04-23 23:32] LABS: Vancomycin, Trough 18.1 ug/mL
[2018-04-24] MEDS: Vancomycin HCl 1 GM in Premix Bag 1 BAG IVPB SCH ×2 (00:20→12:12)
[2018-04-24] MEDS: Losartan 25 MG TAB PO SCH (09:12)
[2018-04-24] MEDS: Carvedilol 25 MG TAB PO SCH ×2 (09:13→16:33)
[2018-04-24] MEDS: Fosphenytoin Sodium 100 MG in Sodium Chloride 0.9% 50 ML IVPB SCH ×3 (09:13→22:23)
[2018-04-24] MEDS: levETIRAcetam In NaCl (Iso-Os) 1,500 MG in Premix Bag 1 BAG IVPB SCH ×2 (09:13→22:23)
[2018-04-24] MEDS: Clopidogrel Bisulfate 75 MG TAB PER TUBE SCH (09:13)
[2018-04-24] MEDS: Heparin 5,000 UNITS/ML VIAL SC SCH ×2 (09:13→22:24)
[2018-04-24] MEDS: Pantoprazole 40 MG VIAL IVP SCH (09:15)
--- NOTE | 2018-04-24 10:41 | PDOC.PN ---
- Subjective Encounter Start Date: 04/24/18 Encounter Start Time: 07:00 Pt seen for followup re: acute hypoxic respiratory failure. Sleepy, not answering questions. Unable to complete ROS. - Objective MAR Reviewed: Yes Vital Signs & Weight: Vital Signs (12 hours) Temp Pulse Resp BP Pulse Ox 04/24/18 08:00 98.9 F 98 18 151/69 H 97 04/24/18 07:20 96 04/24/18 07:19 113 H 16 96 04/24/18 03:55 98.2 F 99 20 123/67 94 L 04/23/18 23:54 98.7 F 100 20 168/97 H 95 Weight Admit Weight 166 lb 2.273 oz Weight 180 lb 1.6 oz Most Recent Monitor Data Heart Rate from ECG 99 NIBP 166/70 NIBP BP-Mean 117 Respiration from ECG 10 SpO2 99 I&O: 04/23/18 04/24/18 04/25/18 06:59 06:59 06:59 Intake Total 3529.4 1398 Output Total 3907 1886 Balance -377.6 -488 Result Diagrams: 04/23/18 08:16 04/23/18 08:16 Additional Labs: Accuchecks 04/24/18 04/23/18 04/23/18 05:09 20:51 16:13 POC Glucose 135 H 154 H 156 H EKG Reviewed by me: Yes (Tele: chiara redding) Phys Exam - Physical Examination Constitutional: NAD HEENT: moist MMs Neck: supple Respiratory: clear to auscultation bilateral Cardiovascular: irregular Gastrointestinal: soft Moving LUE and LLE Deviation from normal: Lethargic Skin: no rash Dx/Plan (1) Acute respiratory failure with hypoxia and hypercapnia Code(s): J96.01 - ACUTE RESPIRATORY FAILURE WITH HYPOXIA; J96.02 - ACUTE RESPIRATORY FAILURE WITH HYPERCAPNIA Status: Acute Comment: Improving (2) Atrial fibrillation with RVR Code(s): I48.91 - UNSPECIFIED ATRIAL FIBRILLATION Status: Acute Comment: rate-controlled, continue Coreg (3) Bacteremia due to Gram-positive bacteria Code(s): R78.81 - BACTEREMIA Status: Acute Comment: on IV vancomycin, consult ID for opinion and help with management (4) DM2 (diabetes mellitus, type 2) Status: Chronic Qualifiers: Diabetes mellitus care home insulin use: without rn long term care use Diabetes mellitus complication status: with neurologic complications Diabetes mellitus complication detail: with polyneuropathy Qualified Code(s): E11.42 - Type 2 diabetes mellitus with diabetic polyneuropathy Comment: on accuchecks, insulin sliding scale (5) HLD (hyperlipidemia) Code(s): E78.5 - HYPERLIPIDEMIA, UNSPECIFIED Status: Chronic Qualifiers: Hyperlipidemia type: unspecified Qualified Code(s): E78.5 - Hyperlipidemia , unspecified (6) PVD (peripheral vascular disease) Code(s): I73.9 - PERIPHERAL VASCULAR DISEASE, UNSPECIFIED Status: Chronic (7) Status epilepticus Code(s): G40.901 - EPILEPSY, UNSP, NOT INTRACTABLE, WITH STATUS EPILEPTICUS Status: Resolved Comment: 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 Review of Systems - Medications/Allergies Allergies/Adverse Reactions: Allergies Allergy/AdvReac Type Severity Reaction Status Date / Time No Known Allergies Allergy Unverified 04/16/18 12:16 Medications: Current Medications Acetaminophen (Tylenol Elixir) 650 mg PO Q6H PRN PRN Reason: Fever > 101 or Mild Pain Acetaminophen (Tylenol) 650 mg [place] Q6H PRN PRN Reason: Fever > 101 or Mild Pain Albuterol/Ipratropium (Duoneb) 3 ml NEB [id number] [facility] Last Admin: 04/24/18 07:19 Dose: 3 ml Amlodipine Besylate (Norvasc) 10 mg PO 2100 [facility] Atorvastatin Calcium (Lipitor) 80 mg PO HS [facility] Last Admin: 04/23/18 21:09 Dose: 80 mg Carvedilol (Coreg) 25 mg PO BID-WM [facility] Last Admin: 04/24/18 09:13 Dose: 25 mg Clopidogrel Bisulfate (Plavix) 75 mg PER TUBE DAILY [facility] Last Admin: 04/24/18 09:13 Dose: 75 mg Dextrose/Water (Dextrose 50%) 25 gm SLOW IVP PRN PRN PRN Reason: Hypoglycemia Glucagon (Glucagon) 1 mg IM PRN PRN PRN Reason: Hypoglycemia Heparin Sodium (Porcine) (Heparin) 5,000 units SC BID [facility] Last Admin: 04/24/18 09:13 Dose: 5,000 units Hydralazine HCl (Apresoline) 10 mg SLOW IVP Q6H PRN PRN Reason: Hypertension Last Admin: 04/23/18 06:49 Dose: 10 mg Levetiracetam 1,500 mg/ Device 100 mls @ 200 mls/hr IVPB BID [facility] Last Admin: 04/24/18 09:13 Dose: 100 mls Dextrose/Water (D5w) 1,000 mls @ 0 mls/hr IV .Q0M PRN; As Directed PRN Reason: Hypoglycemia Acyclovir Sodium 700 mg/ (Sodium Chloride) 114 mls @ 114 mls/hr IVPB 0400,1200, 2000 [facility] Last Admin: 04/24/18 03:33 Dose: 114 mls Fosphenytoin Sodium 100 mg/ (Sodium Chloride) 52 mls @ 104 mls/hr IVPB TID [facility] Last Admin: 04/24/18 09:13 Dose: 52 mls Vancomycin HCl 1 gm/ Device 200 mls @ 200 mls/hr IVPB 1200,2359 [facility] Last Admin: 04/24/18 00:20 Dose: 200 mls Insulin Human Lispro (Humalog) 0 units SC .BEDTIME SLIDING SC PRN PRN Reason: Bedtime Correctional Scale Last Admin: 04/19/18 11:42 Dose: 2 unit Insulin Human Regular (Humulin R) 0 units SC .MODERATE SLIDING SC PRN PRN Reason: Moderate Correctional Scale Last Admin: 04/23/18 16:14 Dose: 2 unit Labetalol HCl (Normodyne) 20 mg SLOW IVP Q15MIN PRN PRN Reason: SBP Greater Than 180 Last Admin: 04/22/18 17:26 Dose: 20 mg Lorazepam (Ativan) 2 mg SLOW IVP Q15MIN PRN PRN Reason: Seizures Last Admin: 04/21/18 01:00 Dose: 2 mg Losartan Potassium (Cozaar) 50 mg PO DAILY [facility] Last Admin: 04/24/18 09:12 Dose: 50 mg Metoprolol Tartrate (Lopressor) 5 mg IVP Q6H PRN PRN Reason: To Control Heart Rate Last Admin: 04/22/18 14:42 Dose: 5 mg Pantoprazole Sodium (Protonix) 40 mg IVP DAILY [facility] Last Admin: 04/24/18 09:15 Dose: 40 mg Sodium Chloride (Flush - Normal Saline) 10 ml IVF Q12HR [facility] Last Admin: 04/24/18 09:15 Dose: 10 ml Sodium Chloride (Flush - Normal Saline) 10 ml IV DAILY [facility] Last Admin: 04/24/18 09:15 Dose: 10 ml
[2018-04-24] MEDS: Insulin Regular 300 UNITS/3 ML VIAL SC PRN ×2 (13:16→16:33)
--- NOTE | 2018-04-24 13:29 | PRG ---
DATE OF SERVICE: 04/24/2018 SERVICE: Pulmonary Medicine. INTERVAL HISTORY: The patient is doing great from a respiratory standpoint. He is clearing his airway. He is not having to be NT suctioned. He is coughing and gagging appropriately. He is having no respiratory difficulties. He is able to work a little bit with physical therapy. PHYSICAL EXAMINATION: VITAL SIGNS: Afebrile, pulse 100, blood pressure 148/85, respirations 20, saturation 97% on room air. GENERAL: The patient is awake, alert, no apparent distress. LUNGS: Excellent air entry. There are really no rhonchi, or crackles present. HEART: Normal rate, regular. ABDOMEN: Soft, nontender, nondistended. Bowel sounds are positive. MUSCULOSKELETAL: No cyanosis or clubbing. No pitting in the bilateral lower extremities. NEUROLOGIC: He has withdrawal from noxious stimuli in the left upper extremity. He also has spontaneous movement there. He does not move his right upper extremity, but seems to appreciate sensation there. His right lower extremity, he does not withdraw from noxious stimuli. LABORATORY DATA: Blood sugars ranged from 135-167. ASSESSMENT: 1. Respiratory failure secondary to inability to protect airway, resolved. 2. Nonconvulsive status epilepticus. 3. Metabolic encephalopathy. 4. Cerebrovascular accident, multiple, likely embolic from left carotid artery disease. 5. Severe sepsis, resolved. 6. Bacteremia secondary to Staph epidermatitis, which demonstrates tran resistant profile. 7. Chronic obstructive pulmonary disease without acute exacerbation. DISCUSSION AND PLAN: At this point, the patient has no further requirements for inpatient pulmonary or critical care opinion. He remains at fairly high risk for developing recurrent infectious respiratory issues. That being said, in this moment, he is stable for transition out of the hospital from a purely respiratory perspective. I will sign off at this time, but if he gets into trouble, please give me a phone call. TERESA
--- NOTE | 2018-04-24 14:10 | CON ---
DATE OF CONSULTATION: 04/24/2018 REASON FOR CONSULTATION: Bacteremia. 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 According to the , he was diagnosed with a CVA then and had been scheduled for a right shoulder replacement, but then developed recrudescence of seizures on the day of admission and brought to the hospital by EMS. Before admission to the emergency room he was given Versed to control seizures. On arrival, he was not responsive with a GCS scale of 7. The patient required intubation for airway protection. He had a little bit of temperature elevation and atrial fibrillation with RVR. Lactate 4.8. White cell count of 16,000, pCO2 59, pO2 59 and pH 7.3. Chest x-ray with venous congestion. The patient had an EEG done 2 days later that showed diffuse slowing with focal epileptiform features, left hemisphere. Brain MRI 2017 with restricted diffusion in the left cerebral hemisphere, suggesting multifocal acute infarction. There is abnormal signal intensity within the mesial temporal lobe left. CSF evaluation was done on the and this demonstrated 3 WBCs, 48 RBCs, glucose 124, and protein 86. The patient has been extubated and has been transferred to the Neurology floor. He is improving in terms of swallowing function steadily, still requiring enteric feedings through NG tube. The patient has a right hemiparesis which developed after this event, some loose stool, probably secondary to the enteric feeding. No respiratory symptoms, voiding spontaneously without difficulty. He had been moving his right lower extremity, but not anymore. Still drowsy, but more arousable than previously. PAST MEDICAL HISTORY: Atrial fibrillation, type 2 diabetes, hypertension, peripheral vascular disease with stenting in the right lower extremity, amputation of the right first toe recently at the [place], carotid endarterectomy, left side 6 weeks prior to this admission, new onset of seizure activity postoperatively, following endarterectomy with reportedly being diagnosed with a CVA then. 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 FAMILY HISTORY: Noncontributory. SOCIAL HISTORY: Current smoker. Lives with , disabled. ALLERGIES: None. CURRENT MEDICATIONS: Tylenol, acyclovir, DuoNeb, Norvasc, Lipitor, Coreg, Plavix, fosphenytoin, insulin, Keppra, Ativan, Lopressor, Protonix, vancomycin. PHYSICAL EXAMINATION: VITAL SIGNS: Temperature has been normal, blood pressure 140/85, pulse 100, respirations 18-20, O2 sat 97%. SKIN: With no areas of skin breakdown, no lymphadenopathy. HEENT: Ocular movements conjugate. Sclerae white. Oral cavity moist. Nasogastric tube in left nostril. Ocular movements are conjugate. NECK: Supple, no jugular vein distention. LUNGS: Symmetric air entry with no crackles or wheezing. HEART: S1, S2, irregular rate without murmurs. No S3. ABDOMEN: Soft, not distended or tender. No ascites. No bladder distention. GENITAL: Evaluation was normal. EXTREMITIES: Limitation of range of motion right shoulder, no inflammatory process noticeable, 1+ edema in the right lower extremity. Amputation site for the right first toe with a scab at the amputation site, but no inflammatory changes. Pulses are not palpable in dorsalis pedis or posterior tibialis, 1+ in popliteals. The patient has a dense hemiparesis right side, he is able to move his left side. NEURO: Right now he is drowsy, could not get him to follow commands. According to the , he had been interacting earlier and following commands. CSF evaluation has been reviewed above. White cell count is 15 on arrival and now is down to 12.5, hemoglobin 11, platelets 184,000, 68% neutrophils, 7% bands. INR 1.2. Sodium 140, creatinine 0.67, AST and ALT within normal limits. Bilirubin normal and alkaline phosphatase normal. Calcium 8.7, albumin 4.2, globulin 4.2. Urinalysis with 21-50 WBCs, RBC is 0-3, protein 300. ASSESSMENT: Peripheral vascular disease, coronary artery disease, endarterectomy a few weeks ago with subsequent stroke and seizures and what appears to be another CVA on the same region of the first one with recurrence of seizures. The MRI findings are likely due to the CVA and seizure activity rather than herpetic encephalitis. CSF findings argue against it. I do not think of herpes simplex DNA/PCR was submitted and I would advise discontinuation of acyclovir. Staph epidermidis positive samples are from the extremities and obtained very close to each other and likely represent contamination of the sample rather than true bacteremia. MTDD
[2018-04-24] MEDS ORDERED: Acetaminophen/Codeine 120-12MG/5 ML UDCUP PER TUBE PRN ×2 (14:46→14:47)
[2018-04-24] MEDS: Amlodipine 10 MG TAB PO SCH (22:24)
[2018-04-24] MEDS: Atorvastatin Calcium 40 MG TAB PO SCH (22:24)
[2018-04-25] MEDS: Fosphenytoin Sodium 100 MG in Sodium Chloride 0.9% 50 ML IVPB SCH ×3 (08:39→23:07)
[2018-04-25] MEDS: levETIRAcetam In NaCl (Iso-Os) 1,500 MG in Premix Bag 1 BAG IVPB SCH ×2 (08:40→23:07)
[2018-04-25] MEDS: Pantoprazole 40 MG VIAL IVP SCH (08:41)
[2018-04-25] MEDS: Heparin 5,000 UNITS/ML VIAL SC SCH ×2 (08:41→23:07)
[2018-04-25] MEDS: Carvedilol 25 MG TAB PO SCH ×2 (08:42→17:03)
[2018-04-25] MEDS: Clopidogrel Bisulfate 75 MG TAB PER TUBE SCH (08:42)
[2018-04-25] MEDS: Losartan 25 MG TAB PO SCH (09:07)
[2018-04-25] MEDS: Insulin Regular 300 UNITS/3 ML VIAL SC PRN (12:43)
--- NOTE | 2018-04-25 14:04 | PDOC.PN ---
- Subjective Encounter Start Date: 04/25/18 Encounter Start Time: 07:40 Pt seen for followup re: acute hypoxic respiratory failure. Awake and alert, staring but not answering questions, unable to complete ROS. - Objective MAR Reviewed: Yes Vital Signs & Weight: Vital Signs (12 hours) Temp Pulse Pulse Pulse Resp BP BP 04/25/18 11:36 98.7 F 90 20 04/25/18 10:06 94 100 146/79 H 149/78 H 04/25/18 09:45 04/25/18 09:44 100 16 04/25/18 08:00 99.2 F 100 16 04/25/18 07:47 99.2 F 103 H 18 04/25/18 03:55 99.2 F 105 H 20 BP Pulse Ox 04/25/18 11:36 187/82 H 95 04/25/18 10:06 04/25/18 09:45 96 04/25/18 09:44 04/25/18 08:00 96 04/25/18 07:47 177/85 H 95 04/25/18 03:55 174/95 H 92 L Weight Admit Weight 166 lb 2.273 oz Weight 185 lb 11.2 oz Most Recent Monitor Data Heart Rate from ECG 99 NIBP 166/70 NIBP BP-Mean 117 Respiration from ECG 10 SpO2 99 I&O: 04/24/18 04/25/18 04/26/18 06:59 06:59 06:59 Intake Total 1398 3315 280 Output Total 1886 1700 300 Balance -488 1615 -20 Result Diagrams: 04/23/18 08:16 04/23/18 08:16 Additional Labs: Accuchecks 04/25/18 04/25/18 04/24/18 10:51 05:32 21:08 POC Glucose 223 H 148 H 136 H 04/24/18 04/24/18 16:28 10:53 POC Glucose 187 H 202 H EKG Reviewed by me: Yes (Tele: chiara redding) Phys Exam - Physical Examination Constitutional: NAD HEENT: moist MMs Neck: supple Respiratory: clear to auscultation bilateral Cardiovascular: irregular Gastrointestinal: soft Moves LUE and LLE Psychiatric: normal affect Dx/Plan (1) Acute respiratory failure with hypoxia and hypercapnia Code(s): J96.01 - ACUTE RESPIRATORY FAILURE WITH HYPOXIA; J96.02 - ACUTE RESPIRATORY FAILURE WITH HYPERCAPNIA Status: Acute Comment: Improving, pt now maintaining good oxygen saturations on room air (2) Atrial fibrillation with RVR Code(s): I48.91 - UNSPECIFIED ATRIAL FIBRILLATION Status: Acute Comment: continue Coreg (3) Bacteremia due to Gram-positive bacteria Code(s): R78.81 - BACTEREMIA Status: Acute Comment: likely contaminant (4) DM2 (diabetes mellitus, type 2) Status: Chronic Qualifiers: Diabetes mellitus termite control servicer insulin use: without termite control servicer use Diabetes mellitus complication status: with neurologic complications Diabetes mellitus complication detail: with polyneuropathy Qualified Code(s): E11.42 - Type 2 diabetes mellitus with diabetic polyneuropathy Comment: on accuchecks, insulin sliding scale (5) HLD (hyperlipidemia) Code(s): E78.5 - HYPERLIPIDEMIA, UNSPECIFIED Status: Chronic Qualifiers: Hyperlipidemia type: unspecified Qualified Code(s): E78.5 - Hyperlipidemia , unspecified (6) PVD (peripheral vascular disease) Code(s): I73.9 - PERIPHERAL VASCULAR DISEASE, UNSPECIFIED Status: Chronic (7) Status epilepticus Code(s): G40.901 - EPILEPSY, UNSP, NOT INTRACTABLE, WITH STATUS EPILEPTICUS Status: Resolved - Plan PT/OT, out of bed/ambulate * . Will discontinue acyclovir. Review of Systems - Medications/Allergies Allergies/Adverse Reactions: Allergies Allergy/AdvReac Type Severity Reaction Status Date / Time No Known Allergies Allergy Unverified 04/16/18 12:16 Medications: Current Medications Acetaminophen (Tylenol Elixir) 650 mg PO Q6H PRN PRN Reason: Fever > 101 or Mild Pain Acetaminophen (Tylenol) 650 mg [place] Q6H PRN PRN Reason: Fever > 101 or Mild Pain Acetaminophen/Codeine Phosphate (Tylenol/Codeine Elixir) 12.5 ml PER TUBE Q6H PRN PRN Reason: Moderate Pain (4-6) Last Admin: 04/24/18 22:33 Dose: 12.5 ml Acetaminophen/Codeine Phosphate (Tylenol/Codeine Elixir) 25 ml PER TUBE Q6H PRN PRN Reason: Severe Pain (7-10) Albuterol/Ipratropium (Duoneb) 3 ml NEB [id number] [facility] Last Admin: 04/25/18 09:44 Dose: 3 ml Amlodipine Besylate (Norvasc) 10 mg PO 2100 [facility] Last Admin: 04/24/18 22:24 Dose: 10 mg Atorvastatin Calcium (Lipitor) 80 mg PO HS [facility] Last Admin: 04/24/18 22:24 Dose: 80 mg Carvedilol (Coreg) 25 mg PO BID-WM [facility] Last Admin: 04/25/18 08:42 Dose: 25 mg Clopidogrel Bisulfate (Plavix) 75 mg PER TUBE DAILY [facility] Last Admin: 04/25/18 08:42 Dose: 75 mg Dextrose/Water (Dextrose 50%) 25 gm SLOW IVP PRN PRN PRN Reason: Hypoglycemia Glucagon (Glucagon) 1 mg IM PRN PRN PRN Reason: Hypoglycemia Heparin Sodium (Porcine) (Heparin) 5,000 units SC BID [facility] Last Admin: 04/25/18 08:41 Dose: 5,000 units Hydralazine HCl (Apresoline) 10 mg SLOW IVP Q6H PRN PRN Reason: Hypertension Last Admin: 04/23/18 06:49 Dose: 10 mg Levetiracetam 1,500 mg/ Device 100 mls @ 200 mls/hr IVPB BID [facility] Last Admin: 04/25/18 08:40 Dose: 100 mls Dextrose/Water (D5w) 1,000 mls @ 0 mls/hr IV .Q0M PRN; As Directed PRN Reason: Hypoglycemia Acyclovir Sodium 700 mg/ (Sodium Chloride) 114 mls @ 114 mls/hr IVPB 0400,1200, 2000 [facility] Last Admin: 04/25/18 12:27 Dose: 114 mls Fosphenytoin Sodium 100 mg/ (Sodium Chloride) 52 mls @ 104 mls/hr IVPB TID [facility] Last Admin: 04/25/18 08:39 Dose: 52 mls Insulin Human Lispro (Humalog) 0 units SC .BEDTIME SLIDING SC PRN PRN Reason: Bedtime Correctional Scale Last Admin: 04/19/18 11:42 Dose: 2 unit Insulin Human Regular (Humulin R) 0 units SC .MODERATE SLIDING SC PRN PRN Reason: Moderate Correctional Scale Last Admin: 04/25/18 12:43 Dose: 4 unit Labetalol HCl (Normodyne) 20 mg SLOW IVP Q15MIN PRN PRN Reason: SBP Greater Than 180 Last Admin: 04/22/18 17:26 Dose: 20 mg Lorazepam (Ativan) 2 mg SLOW IVP Q15MIN PRN PRN Reason: Seizures Last Admin: 04/21/18 01:00 Dose: 2 mg Losartan Potassium (Cozaar) 50 mg PO DAILY [facility] Last Admin: 04/25/18 09:07 Dose: 50 mg Metoprolol Tartrate (Lopressor) 5 mg IVP Q6H PRN PRN Reason: To Control Heart Rate Last Admin: 04/22/18 14:42 Dose: 5 mg Pantoprazole Sodium (Protonix) 40 mg IVP DAILY [facility] Last Admin: 04/25/18 08:41 Dose: 40 mg Sodium Chloride (Flush - Normal Saline) 10 ml IVF Q12HR [facility] Last Admin: 04/25/18 11:09 Dose: Not Given Sodium Chloride (Flush - Normal Saline) 10 ml IV DAILY [facility] Last Admin: 04/25/18 11:09 Dose: Not Given
--- NOTE | 2018-04-25 14:37 | RAD ---
MODIFIED SPEECH SWALLOW: HISTORY: Dysphagia following cerebral infarction, I69.391. COMPARISON: None. FINDINGS: Multiple consistency contrast was given by the speech pathologist. There is deep penetration with thin liquid contrast with a cup. No other consistency contrast had de ep aspiration or penetration. IMPRESSION: 1. Deep penetration with thin liquid contrast via a cup. 2. Please see the speech pathologist's report for further details. FLUORO TIME: Two minutes. DOSE AREA PRODUCT: 1.05 uGy*^cm2. POS: ZOHRA
[2018-04-25] MEDS: Atorvastatin Calcium 40 MG TAB PO SCH (23:07)
[2018-04-25] MEDS: Amlodipine 10 MG TAB PO SCH (23:08)
[2018-04-25] MEDS: Acetaminophen 650 MG/20.3 ML UDCUP PO PRN (23:11)
[2018-04-26] MEDS: Labetalol HCl 100 MG/20 ML VIAL SLOW IVP PRN (04:19)
[2018-04-26] MEDS: Losartan 25 MG TAB PO SCH (10:03)
[2018-04-26] MEDS: levETIRAcetam In NaCl (Iso-Os) 1,500 MG in Premix Bag 1 BAG IVPB SCH (10:03)
[2018-04-26] MEDS: Heparin 5,000 UNITS/ML VIAL SC SCH ×2 (10:04→21:56)
[2018-04-26] MEDS: Clopidogrel Bisulfate 75 MG TAB PER TUBE SCH (10:04)
[2018-04-26] MEDS: Pantoprazole 40 MG VIAL IVP SCH (10:04)
[2018-04-26] MEDS: Carvedilol 25 MG TAB PO SCH ×2 (10:06→17:20)
[2018-04-26 10:29] VITALS: BMI 27.1
[2018-04-26] MEDS: Fosphenytoin Sodium 100 MG in Sodium Chloride 0.9% 50 ML IVPB SCH (11:00)
--- NOTE | 2018-04-26 16:00 | PDOC.PN ---
- Subjective Encounter Start Date: 04/26/18 Encounter Start Time: 07:00 Pt seen for followup re: acute hypoxic respiratory failure. Non verbal, unable to complete ROS. - Objective MAR Reviewed: Yes Vital Signs & Weight: Vital Signs (12 hours) Temp Pulse Pulse Pulse Resp BP BP 04/26/18 15:51 96 12 04/26/18 15:32 97.8 F 97 20 04/26/18 13:51 87 82 195/92 H 04/26/18 11:58 98.1 F 99 16 04/26/18 09:10 100 88 185/115 H 04/26/18 08:42 104 H 14 04/26/18 08:00 98.1 F 99 16 04/26/18 07:39 98.2 F 99 16 04/26/18 05:00 04/26/18 04:19 99 202/88 H BP BP BP Pulse Ox 04/26/18 15:51 04/26/18 15:32 187/85 H 95 04/26/18 13:51 152/98 H 04/26/18 11:58 141/74 H 99 04/26/18 09:10 151/85 H 04/26/18 08:42 04/26/18 08:00 04/26/18 07:39 159/76 H 94 L 04/26/18 05:00 167/98 H 04/26/18 04:19 Weight Admit Weight 166 lb 2.273 oz Weight 184 lb 3.2 oz Most Recent Monitor Data Heart Rate from ECG 99 NIBP 166/70 NIBP BP-Mean 117 Respiration from ECG 10 SpO2 99 I&O: 04/25/18 04/26/18 04/27/18 06:59 06:59 06:59 Intake Total 3315 480 Output Total 1700 5 1700 Balance 1615 -1545 -1700 Result Diagrams: 04/23/18 08:16 04/23/18 08:16 Additional Labs: Accuchecks 04/26/18 04/26/18 04/25/18 12:05 06:05 20:43 POC Glucose 203 H 149 H 172 H 04/25/18 17:04 POC Glucose 125 H EKG Reviewed by me: Yes (Tele: NSR) Phys Exam - Physical Examination Constitutional: NAD HEENT: moist MMs Neck: supple Respiratory: clear to auscultation bilateral Cardiovascular: RRR Gastrointestinal: soft Morving LLE and LUE Deviation from normal: Lethargic Dx/Plan (1) Acute respiratory failure with hypoxia and hypercapnia Code(s): J96.01 - ACUTE RESPIRATORY FAILURE WITH HYPOXIA; J96.02 - ACUTE RESPIRATORY FAILURE WITH HYPERCAPNIA Status: Acute Comment: Improved, pt is now on room air (2) Atrial fibrillation with RVR Code(s): I48.91 - UNSPECIFIED ATRIAL FIBRILLATION Status: Acute Comment: continue Coreg. Need clarification re: anticoagulation for a. fib from cardiology service prior to discharge. (3) Bacteremia due to Gram-positive bacteria Code(s): R78.81 - BACTEREMIA Status: Acute Comment: likely contaminant, off of antibiotics (4) DM2 (diabetes mellitus, type 2) Status: Chronic Qualifiers: Diabetes mellitus superintendent terminal insulin use: without superintendent terminal use Diabetes mellitus complication status: with neurologic complications Diabetes mellitus complication detail: with polyneuropathy Qualified Code(s): E11.42 - Type 2 diabetes mellitus with diabetic polyneuropathy Comment: on accuchecks, insulin sliding scale (5) HLD (hyperlipidemia) Code(s): E78.5 - HYPERLIPIDEMIA, UNSPECIFIED Status: Chronic Qualifiers: Hyperlipidemia type: unspecified Qualified Code(s): E78.5 - Hyperlipidemia , unspecified (6) PVD (peripheral vascular disease) Code(s): I73.9 - PERIPHERAL VASCULAR DISEASE, UNSPECIFIED Status: Chronic (7) Status epilepticus Code(s): G40.901 - EPILEPSY, UNSP, NOT INTRACTABLE, WITH STATUS EPILEPTICUS Status: Resolved - Plan * . Pt has been accepted for inpt rehab. Discharge when mentation improves. Review of Systems - Review of Systems Cardiovascular: negative: chest pain, palpitations, orthopnea, paroxysmal nocturnal dyspnea, edema, light headedness Gastrointestinal: negative: Nausea, Vomiting, Abdominal Pain, Diarrhea, Constipation, Melena, Hematochezia - Medications/Allergies Allergies/Adverse Reactions: Allergies Allergy/AdvReac Type Severity Reaction Status Date / Time No Known Allergies Allergy Unverified 04/16/18 12:16 Medications: Current Medications Acetaminophen (Tylenol Elixir) 650 mg PO Q6H PRN PRN Reason: Fever > 101 or Mild Pain Last Admin: 04/25/18 23:11 Dose: 650 mg Acetaminophen (Tylenol) 650 mg IN Q6H PRN PRN Reason: Fever > 101 or Mild Pain Acetaminophen/Codeine Phosphate (Tylenol/Codeine Elixir) 12.5 ml PER TUBE Q6H PRN PRN Reason: Moderate Pain (4-6) Last Admin: 04/24/18 22:33 Dose: 12.5 ml Acetaminophen/Codeine Phosphate (Tylenol/Codeine Elixir) 25 ml PER TUBE Q6H PRN PRN Reason: Severe Pain (7-10) Albuterol/Ipratropium (Duoneb) 3 ml NEB R2CM-VH [facility] Last Admin: 04/26/18 15:51 Dose: 3 ml Amlodipine Besylate (Norvasc) 10 mg PO 2100 [facility] Last Admin: 04/25/18 23:08 Dose: 10 mg Atorvastatin Calcium (Lipitor) 80 mg PO HS [facility] Last Admin: 04/25/18 23:07 Dose: 80 mg Carvedilol (Coreg) 25 mg PO BID-[facility] Last Admin: 04/26/18 10:06 Dose: 25 mg Clopidogrel Bisulfate (Plavix) 75 mg PER TUBE DAILY [facility] Last Admin: 04/26/18 10:04 Dose: 75 mg Dextrose/Water (Dextrose 50%) 25 gm SLOW IVP PRN PRN PRN Reason: Hypoglycemia Furosemide (Lasix) 40 mg PO DAILY-[facility] Glucagon (Glucagon) 1 mg IM PRN PRN PRN Reason: Hypoglycemia Heparin Sodium (Porcine) (Heparin) 5,000 units SC BID [facility] Last Admin: 04/26/18 10:04 Dose: 5,000 units Hydralazine HCl (Apresoline) 10 mg SLOW IVP Q6H PRN PRN Reason: Hypertension Last Admin: 04/23/18 06:49 Dose: 10 mg Dextrose/Water (D5w) 1,000 mls @ 0 mls/hr IV .Q0M PRN; As Directed PRN Reason: Hypoglycemia Insulin Human Lispro (Humalog) 0 units SC .BEDTIME SLIDING SC PRN PRN Reason: Bedtime Correctional Scale Last Admin: 04/19/18 11:42 Dose: 2 unit Insulin Human Regular (Humulin R) 0 units SC .MODERATE SLIDING SC PRN PRN Reason: Moderate Correctional Scale Last Admin: 04/25/18 12:43 Dose: 4 unit Labetalol HCl (Normodyne) 20 mg SLOW IVP Q15MIN PRN PRN Reason: SBP Greater Than 180 Last Admin: 04/26/18 04:19 Dose: 20 mg Levetiracetam (Keppra) 1,500 mg PO BID [facility] Lorazepam (Ativan) 2 mg SLOW IVP Q15MIN PRN PRN Reason: Seizures Last Admin: 04/21/18 01:00 Dose: 2 mg Losartan Potassium (Cozaar) 50 mg PO DAILY [facility] Last Admin: 04/26/18 10:03 Dose: 50 mg Metoprolol Tartrate (Lopressor) 5 mg IVP Q6H PRN PRN Reason: To Control Heart Rate Last Admin: 04/22/18 14:42 Dose: 5 mg Phenytoin Sodium (Dilantin Er) 100 mg PO TID [facility] Last Admin: 04/26/18 14:55 Dose: 100 mg Sodium Chloride (Flush - Normal Saline) 10 ml IVF Q12HR [facility] Last Admin: 04/26/18 10:05 Dose: Not Given Sodium Chloride (Flush - Normal Saline) 10 ml IV DAILY [facility] Last Admin: 04/26/18 10:05 Dose: Not Given
[2018-04-26] MEDS: Insulin Regular 300 UNITS/3 ML VIAL SC PRN (18:01)
[2018-04-26] MEDS ORDERED: levETIRAcetam 500 MG TAB PO SCH (21:00)
[2018-04-26] MEDS: Atorvastatin Calcium 40 MG TAB PO SCH (21:56)
[2018-04-26] MEDS: Amlodipine 10 MG TAB PO SCH (21:56)
[2018-04-26] MEDS ORDERED: levETIRAcetam 500 mg/5 ml Oral Solution PO SCH (22:00)
[2018-04-26] MEDS: Acetaminophen 650 MG/20.3 ML UDCUP PO PRN (22:20)
[2018-04-27] MEDS ORDERED: Furosemide 40 MG TAB PO SCH (07:30)
[2018-04-27] MEDS ORDERED: levETIRAcetam 500 mg/5 ml Oral Solution PO SCH (09:00)
[2018-04-27] MEDS ORDERED: Losartan 25 MG TAB PO SCH (09:00)
[2018-04-27] MEDS: Carvedilol 25 MG TAB PO SCH ×2 (09:13→16:00)
[2018-04-27] MEDS: Heparin 5,000 UNITS/ML VIAL SC SCH (09:14)
[2018-04-27] MEDS: Clopidogrel Bisulfate 75 MG TAB PER TUBE SCH (09:14)
[2018-04-27] MEDS ORDERED: Phenytoin 50 MG Chewable Tablet PO SCH ×2 (09:15→15:00)
[2018-04-27] MEDS: Insulin Regular 300 UNITS/3 ML VIAL SC PRN (12:09)
[2018-04-27 16:08] VITALS: BP 142/96; TEMP 98.1
--- NOTE | 2018-04-28 07:12 | DIS ---
DATE OF ADMISSION: 04/16/2018 DATE OF DISCHARGE: 04/27/2018 PRIMARY CARE PROVIDER: [facility] in [place]. ADMITTING DIAGNOSES: 1. Status epilepticus. 2. Acute hypoxic and hypercapnic respiratory failure. DISCHARGE DIAGNOSES: 1. Atrial fibrillation with rapid ventricular response. 2. Physical deconditioning. 3. Bacteremia. CONDITION OF PATIENT ON THE DAY OF DISCHARGE: Stable. I assessed Mr. Powell on the day of discharge. He is nonverbal, does not appear to be in distress. PHYSICAL EXAMINATION: VITAL SIGNS: Stable. S1 and S2 are heard, irregular. LUNGS: Clear to auscultation bilaterally. DISCHARGE MEDICATIONS: Amlodipine 10 mg daily, vitamin C of 250 mg daily, aspirin 81 mg daily, Lipitor 80 mg daily, Coreg 25 mg 2 times a day, Vitamin D3 of 400 units daily, Plavix 75 mg daily, Colace 100 mg 2 times a day, vitamin D2 of 50,000 units every week, ferrous gluconate 324 mg 2 times a day, Lasix 40 mg daily, gabapentin 300 mg 3 times a day, Keppra 1500 mg 2 times a day, Cozaar 100 mg daily, metformin 1000 mg 2 times a day, omeprazole 20 mg 2 times a day, phenytoin 100 mg 3 times a day, Effer-K 10 mEq daily, Santyl one application topically daily, sertraline 50 mg daily, Aquaphor ointment as needed, nicotine lozenges 4 mg every 2 hours as needed. CONSULTATIONS DURING THIS HOSPITALIZATION: Pulmonology, Dr. Jameson; Cardiology , Dr. Mcnamara; Neurology, Dr. Genao; and Infectious Diseases, Dr. Ballesteros. HOSPITAL COURSE: Mr. Powell is a pleasant 62-year-old gentleman who was admitted to [facility] on 04/16/2018 for status epilepticus, acute hypoxic and hypercapnic respiratory failure and atrial fibrillation with rapid ventricular response. He was intubated and mechanically ventilated. He was started on Cardizem drip. On 04/17/2018, he had MRI of the brain, which showed numerous foci of restricted diffusion within the left cerebral hemisphere suggesting multifocal acute infarction. He also had abnormal signal intensity within the mesial temporal lobe on the left, differential diagnosis included herpes encephalitis and limbic encephalitis as well as signal hyperintensity on the basis of seizures. He was started on acyclovir for possible herpes encephalitis. He also had 2D echocardiogram on , which showed left ventricular ejection fraction of 60%-65%. On 04/18/2018, he underwent lumbar puncture. CSF was not suggestive of infection. The same day, he also had an EEG, which showed diffuse slowing with focal epileptiform features in the left hemisphere. He was also treated with antibiotics for possible urinary tract infection. Urine cultures did not show any growth. A 2/2 blood cultures were positive for Staphylococcus epidermidis. Infectious Disease Service was consulted. They felt it was likely a contaminant. Antibiotics were discontinued. Acyclovir was also discontinued because CSF studies were not suggestive of infection. On 04/22/2018, he was extubated. He continued to be deconditioned and most of the time he was nonverbal, not answering questions. He is being discharged to inpatient rehab for further management. His home beta trent dose was increased during this hospitalization because of atrial fibrillation with rapid ventricular response. He is not being started on anticoagulation because his reported that he had GI bleed in the past while on anticoagulation. She is aware of the risk of stroke. The patient is being discharged on aspirin and Plavix. He had a normal TSH during this hospitalization. Many thanks for allowing me to participate in your patient's care. Please feel free to contact me with any questions or concerns. DISCHARGE DESTINATION: [facility]. TOTAL AMOUNT OF TIME SPENT COORDINATING THIS DISCHARGE: 33 minutes. ADDENDUM ON 04/29/2018: Patient also had a discharge diagnosis of unable to rule out sepsis, present since admission. [facility]
--- NOTE | 2018-04-29 13:53 | PQF ---
JUAN ANTONIOELI DAVID [id number] [facility]-208 [id number] CLINICAL DOCUMENTATION CLARIFICATION FORM: POST DISCHARGE DATE: 04/27/2018 ATTN: Dr. Cordon Please exercise your independent, professional judgment in responding to the clarification form. Clinical indicators are provided on the bottom of this form for your review Please check appropriate box(s) to clarify if the following diagnosis has been ruled in or ruled out: Sepsis [ ] Ruled in diagnosis [ ] Severe Sepsis [ ] Continue to treat [ ] Sepsis [ ] Resolved [ ] Other (please specify) [ ] Ruled out diagnosis [ X ] Cannot rule out diagnosis [ ] Other diagnosis (please specify) [ ] Unable to determine In addition, please specify: Present on Admission (POA): [ X ] Yes [ ] No [ ] Unable to determine For continuity of documentation, please document condition throughout progress notes and discharge summary. Thank You. CLINICAL INDICATORS - SIGNS / SYMPTOMS / LABS Per 04/17 to 04/24 pulmonary progress notes: Severe sepsis. Sepsis at the time of admission. Coag negative Staph sepsis. Severe sepsis resolved. Bacteremia secondary to Staphylococcus epidermidis. Per 04/[address] Ballesteros: Staph epidermidis positive samples are from the extremities and obtained very close to each other and likely represent contamination of the sample rather than true bacteremia. Per 04/17 to 04/26 Hospitalist progress notes: Sepsis. Bacteremia due to Gram- positive bacteria. Bacteremia due to Gram-positive bacteria--likely contaminant. Per discharge summary: Bacteremia. A 2/2 blood cultures were positive for Staphylococcus epidermidis. Infectious Disease Service was consulted. They felt it was likely a contaminant. Antibiotics were discontinued. RISK FACTORS Per Hospitalist progress notes: Possible urinary versus meningeal source. TREATMENTS Per Hospitalist progress notes: Continue broad spectrum antibiotics--Vanc, Cefepime and Ampicillin. IV Vancomycin. (This form is maintained as a part of the permanent medical record) 2014 [employer]. All Rights Reserved [email or web address] [phone] [email or web address]
== END 2018-04-27 18:23 | DRG 870 ==
LOC: ERS 09:39 → EDBD 09:39 → CCU 15:24 → 2SE 04-23 10:52
PROVIDERS: ADMIT Internal Medicine; ATTEND Internal Medicine
PROC: 5A1955Z Respiratory Ventilation, Greater than 96 Consecutive Hours (ICD-10-PCS; principal; 2018-04-16)
PROC: 0BH17EZ Insertion of Endotracheal Airway into Trachea, Via Natural or Artificial Opening (ICD-10-PCS; 2018-04-16)
PROC: 009U3ZX Drainage of Spinal Canal, Percutaneous Approach, Diagnostic (ICD-10-PCS; 2018-04-18)
DX: A41.9 Sepsis, unspecified organism (principal); J96.01 Acute respiratory failure with hypoxia; G93.41 Metabolic encephalopathy; I63.10 Cerebral infarction due to embolism of unspecified precerebral artery; J96.02 Acute respiratory failure with hypercapnia; G81.91 Hemiplegia, unspecified affecting right dominant side; N17.9 Acute kidney failure, unspecified; G40.901 Epilepsy, unspecified, not intractable, with status epilepticus; I48.91 Unspecified atrial fibrillation; I10 Essential (primary) hypertension; E78.5 Hyperlipidemia, unspecified; F32.9 Major depressive disorder, single episode, unspecified; F17.210 Nicotine dependence, cigarettes, uncomplicated; J44.9 Chronic obstructive pulmonary disease, unspecified; I25.10 Atherosclerotic heart disease of native coronary artery without angina pectoris; E11.42 Type 2 diabetes mellitus with diabetic polyneuropathy; E11.51 Type 2 diabetes mellitus with diabetic peripheral angiopathy without gangrene; E87.6 Hypokalemia; Z79.84 Long term (current) use of oral hypoglycemic drugs; Z79.02 Long term (current) use of antithrombotics/antiplatelets; Z79.82 Long term (current) use of aspirin; Z79.899 Other long term (current) drug therapy; Z95.5 Presence of coronary angioplasty implant and graft
CPT/HCPCS: 31500; 36415; 36416; 51702; 62270; 70450; 70551; 71045; 74018; 74230; 80048; 80053; 80177; 80202; 81003; 81015; 82550; 82553; 82805; 82945; 83605; 83735; 84100; 84157; 84443; 84484; 85007; 85025; 85027; 85610; 85730; 87040; 87070; 87077; 87086; 87149; 87186; 87205; 89051; 93005; 93306; 94002; 94003; 94640; 95816; 95819; 96361; 96365; 96366; 96367; 96375; A4216; C9113; G8978-GP-CM; G8979-GP-CL; G8987-GO-CN; G8988-GO-CL; G8996-GN-CK; G8996-GN-CM; G8997-GN-CJ; G8997-GN-CK; G8997-GN-CL; J0133; J0290; J0360; J0692; J1644; J1815; J1885; J1953; J2060; J2543; J2704; J3370; J3480; J7050; J7620; Q2009; S0028

== ENCOUNTER 2018-05-25 04:36 | Inpatient (IN) | payer MEDICARE ==
[2018-05-25 05:10] LABS: #Basophils 0.1 thou/uL (0.0-0.2); #Lymphocytes 1.1 thou/uL (1.20-3.40); #Monocytes 0.7 thou/uL (0.11-0.59); #Neutrophils 10.4 thou/uL (1.40-6.50); %Basophils 0.5 % (0.0-1.0); %Eosinophils 0.3 % (0.0-10.0); %Lymphocytes 8.9 % (21.0-51.0); %Monocytes 5.4 % (0.0-10.0); %Neutrophils 84.9 % (42.0-75.0); Hemoglobin 10.7 g/dL (14.0-18.0); Mean Corpuscular HGB CONC 35.1 g/dL (32.0-36.0); Mean Corpuscular Hemoglobin 33.1 pg (27.0-31.0); Mean Corpuscular Volume 94.5 fL (78.0-98.0); Mean Platelet Volume 8.1 fL (7.4-10.4); Platelet Count 206 thou/uL (130-400); RBC Distribution Width 17.7 % (11.5-14.5); Red Blood Cell (RBC) Count 3.24 mill/uL (4.70-6.10); White Blood Cell (WBC) Count 12.2 thou/uL (4.8-10.8)
[2018-05-25 05:23] LABS: INR-International Normal Ratio 1.1; Prothrombin Time 13.9 SEC (12.0-14.7)
[2018-05-25 05:42] LABS: ALT (SGPT) 36 U/L (8-55); AST (SGOT) 29 U/L (5-34); Albumin 4.1 g/dL (3.4-4.8); Alkaline Phosphatase 167 U/L (40-150); Anion Gap 19 mmol/L (10-20); BUN (Urea Nitrogen) 41 mg/dL (8.4-25.7); Bilirubin, Total 0.6 mg/dL (0.2-1.2); Calc. Creatinine Clearance 0 mL/min (70-130); Calcium 9.7 mg/dL (7.8-10.44); Carbon Dioxide 24 mmol/L (23-31); Chloride 102 mmol/L (98-107); Estimated GFR-MDRD 70; Globulin 3.6 g/dL (2.4-3.5); Glucose 173 mg/dL (80-115); Potassium 4.6 mmol/L (3.5-5.1); Protein, Total 7.7 g/dL (5.8-8.1); Sodium 140 mmol/L (136-145)
[2018-05-25] MEDS ORDERED: Pantoprazole 80 MG in Sodium Chloride 0.9% 100 ML IVP SCH (05:45)
[2018-05-25] MEDS ORDERED: Diltiazem 125 MG in Sodium Chloride 0.9% 100 ML IVPB SCH (05:45)
[2018-05-25 06:51] LABS: Iron 53 ug/dL (65-175); Iron Binding Capacity, Total 196 mcg/dL (261-462)
--- NOTE | 2018-05-25 09:29 | CON ---
DATE OF CONSULTATION: 05/25/2018 HISTORY OF PRESENT ILLNESS: The patient is a 62-year-old gentleman referred from [facility] r hematemesis. He is somewhat demented and confused and history is poor. He says he has had intermi ttent vomiting of blood in the past. He is not aware of any prior evaluation. On discharge summary dated 04/27/2018, the patient was admitted for status epilepticus, atrial fibrillation with rapid aly tricular response and bacteremia. PAST MEDICAL HISTORY: Includes, seizure disorder, diabetes mellitus, atrial fibrillation, hypertensi on, hyperlipidemia, coronary artery disease. PAST SURGICAL HISTORY: Includes, toe amputations, cardiac stents, left shoulder surgery. FAMILY HISTORY: Negative for GI or liver disease. SOCIAL HISTORY: He does smoke. Does not drink. MEDICATIONS: From his previous discharge summary show Norvasc 10 mg p.o. daily, vitamin C 250 mg p.o . daily, aspirin 81 mg p.o. daily, Lipitor 80 mg p.o. every day, Coreg 25 mg 2 p.o. daily, vitamin D3 400 units daily, Plavix 75 mg p.o. daily, Colace 100 mg p.o. b.i.d., vitamin D2 50,000 units every w osage, ferrous gluconate 325 mg b.i.d., Lasix 40 mg p.o. daily, gabapentin 300 mg t.i.d., Keppra 1500 m g b.i.d., Cozaar 100 mg p.o. daily, metformin 1000 mg p.o. b.i.d., Omeprazole 20 mg b.i.d., Dilantin 100 mg p.o. t.i.d., potassium chloride 10 mEq p.o. daily, sertraline 50 mg p.o. daily, nicotine lozen ges. ALLERGIES: No known allergies. PHYSICAL EXAMINATION: GENERAL: Shows a well-developed, well-nourished, white male in no acute distress. VITAL SIGNS: Stable. He is afebrile. HEENT: Unremarkable. NECK: Supple. CHEST: Clear. CARDIOVASCULAR: Regular rate and rhythm. ABDOMEN: Soft, nontender, without organomegaly or masses. Bowel sounds are present and normoactive. RECTAL: Deferred. EXTREMITIES: Normal. NEUROLOGIC: Nonfocal. LABORATORY: Shows a hemoglobin 10.7, hematocrit 30.6, white blood cell count 12.2. Chemistries sign ificant for BUN 41, glucose 173. Iron 53, TIBC 196, alkaline phosphatase 167. ASSESSMENT: 1. Hematemesis. 2. Anemia -- gastrointestinal blood loss plus chronic disease. 3. History of seizure disorder. 4. History of atrial fibrillation. 5. Coronary artery disease. 6. Peripheral vascular disease. 7. Diabetes mellitus. RECOMMENDATIONS: 1. EGD. 2. PPI. 3. Serial H and H. 4. Hold Plavix and aspirin for now.
--- NOTE | 2018-05-25 09:40 | HP ---
DATE OF ADMISSION: 05/25/2018 CHIEF COMPLAINT: Coffee-ground vomiting, atrial fibrillation with rapid ventricular response. HISTORY OF PRESENT ILLNESS: The patient is a 62-year-old male, a skilled nursing resident who was brought to the emergency room for further evaluation after he vomited coffee ground substance an d he was found to be in atrial fibrillation with RVR. The information we have is very limited and it is based on the skilled nursing documentation, which was sent out with the patient since the patient palmer s dementia and not able to answer any of my questions in any reliable way and there is no report from the emergency room physician either. PAST MEDICAL HISTORY: Positive for: 1. Chronic atrial fibrillation. 2. Chronic obstructive pulmonary disease. 3. Hyperlipidemia. 4. Peripheral vascular disease. 5. History of CVA with right-sided hemiparesis. 6. Dementia. 7. Seizure disorder. 8. Hypertension. 9. Type 2 diabetes mellitus. PAST SURGICAL HISTORY: Unknown. ALLERGIES: None. MEDICATIONS: Aspirin 81 mg once a day, ascorbic acid 250 mg once a day, atorvastatin 80 mg once a da y, carvedilol 25 mg twice a day, cholecalciferol 1 tablet 400 units once a day, clopidogrel 75 mg onc e a day, ferrous gluconate 324 mg once a day, Flomax 0.4 mg twice a day, furosemide 40 mg once a day, Keppra 1500 mg twice a day, lidocaine patch change daily, lisinopril 10 mg daily, losartan 50 mg mike ly, metformin 1000 mg twice a day, multivitamin 1 a day, phenytoin 100 mg 3 times a day, potassium ch loride 10 mEq once a day, Risperdal 0.5 mg twice a day, sertraline 50 mg once a day, and Zofran p.r.n . every 6 hours as needed. SOCIAL HISTORY: We know that he lives at the skilled nursing. FAMILY HISTORY: Unknown and unobtainable from the patient secondary to his dementia as I mentioned a trey. REVIEW OF SYSTEMS: Unobtainable. PHYSICAL EXAMINATION: VITAL SIGNS: His blood pressure is 119/75, pulse is 124, respiratory rate is 13, pulse oximetry is 9 6% on room air. GENERAL: He is not in any distress during my evaluation. He is sitting upright. He tries to answer my questions, but he answers completely inappropriate. HEENT: His head is atraumatic, normocephalic. Eyes: PERRLA. Sclerae nonicteric. Conjunctivae pin sedrick. Oral mucosa is moist. NECK: Supple, no lymphadenopathy. Thyroid is not palpable. LUNGS: Clear. HEART: S1, S2, irregularly irregular, tachycardic, no S3, no S4, no any murmur. ABDOMEN: Soft, nontender, nondistended. Bowel sounds are present, no organomegaly. EXTREMITIES: No clubbing, cyanosis or edema. He has very diminished pulses on both tibialis posteri or and dorsalis pedis arteries, similar bilaterally. NEUROLOGIC: He follows my commands. He moves his all 4 extremities with some weakness on the right side upper and lower extremity. LABORATORY DATA: White count of 12.2, hemoglobin 10.7, hematocrit 30.6, platelet count is 206. INR 1.1, PT 13.9, aPTT 30. Chemistry: Normal electrolytes, BUN 41, creatinine 1.07, glucose 173. Iron 53, total iron binding capacity 196, alkaline phosphatase 167, globulin 1.6, albumin 4.1. Ferritin 2 01. IMPRESSION: 1. Most likely upper gastrointestinal bleeding, hemodynamically stable. 2. Chronic atrial fibrillation with rapid ventricular response. 3. Diabetes mellitus. 4. Chronic obstructive pulmonary disease, stable. 5. Hyperlipidemia, stable. 6. Peripheral vascular disease, chronic. 7. History of cerebrovascular accident with right-sided hemiparesis, stable. 8. Seizures, stable. 9. Hypertension. 10. Diabetes mellitus type 2. PLAN: Full admission to [facility]. Condition is guarded. Activity: Bed rest. Diet: Clear liquids. IV fluids normal saline 100 mL per hour; pantoprazole 8 mg per hour, IV drip; Cardizem 5 mg per hour, I V drip. H&H q.6 hours x3 daily. Continue Dilantin and Keppra orally. The rest of the medications w ill be reconciled later when the list is ready. GI consult with Dr. Bradley notified per ER physician. I am going to increase his Cardizem drip to 7.5 mg per hour since he is not well controlled on 5. The time spent on this admission is 45 minutes.
[2018-05-25] MEDS ORDERED: Morphine Sulfate 2 MG/ML SYRINGE SLOW IVP PRN (10:28)
[2018-05-25] MEDS ORDERED: Ondansetron HCl/PF 4 MG/2 ML Vial IVP PRN ×2 (10:28→18:17)
[2018-05-25] MEDS ORDERED: Meperidine HCl/PF 25 MG/ML VIAL SLOW IVP PRN (10:28)
[2018-05-25] MEDS ORDERED: Promethazine HCl 25 MG/ML VIAL SLOW IVP PRN (10:28)
[2018-05-25] MEDS ORDERED: Promethazine HCl 25 MG/ML VIAL IM PRN (10:28)
--- NOTE | 2018-05-25 10:46 | OP ---
DATE OF OPERATION: 05/25/2018 PREOPERATIVE DIAGNOSIS: Upper gastrointestinal bleed. PROCEDURE: After informed consent was obtained, the patient was placed in the left lateral decubitus position. Anesthesia was administered per the Anesthesia Department. Forward-viewing endoscope was inserted into esophagus under direct visualization with ease and passed to the second portion of the duodenum with ease. Second portion of the duodenum was normal, although the proximal second portion was somewhat circumferentially eroded with some areas of ulceration. No active bleeding, no visible vessels were noted. The bulb was eroded as well. The pylorus was normal. Antrum showed some erosi ve gastritis. Biopsies were taken. Retroflexion in the stomach was normal. No significant amount o f blood was noted in the stomach. The esophagus showed severe circumferential erosive esophagitis in volving the distal half of the esophagus. No active bleeding was noted. ASSESSMENT: 1. Severe grade D erosive esophagitis involving half the esophagus. 2. Antral gastritis -- status post biopsy. 3. Severe erosive duodenitis. RECOMMENDATIONS: 1. Stop H2 trent. 2. Resume omeprazole 40 mg p.o. b.i.d. 3. Serial H&H. 4. Resume diet.
[2018-05-25] MEDS ORDERED: Lidocaine 1% PF 5 ML VIAL ONE (15:29)
[2018-05-25] MEDS ORDERED: PROPOFOL 200 MG/20 ML VIAL ONE (15:29)
[2018-05-25 17:28] LABS: Bilirubin Negative (Negative); Blood, Urine Negative (Negative); Clarity CLOUDY (Clear); Glucose, Urine (Dipstick) Negative (Negative); Leukocyte Large (Negative); Nitrite Negative (Negative); Protein, Urine (Dipstick) Trace mg/dL (Neg-Trace); Specific Gravity, Urine 1.019 (1.002-1.036); Urobilinogen 0.2 mg/dL (0.2-1.0); pH, Urine 5.5 (5.0-9.0)
[2018-05-25 17:31] LABS: Bacteria/HPF 4+ HPF (None Seen); Hyaline Casts/LPF 0-3 HYALINE CAST LPF (0-3 Hyaline); RBC/HPF 0-3 HPF (0-3); Squamous Epithelial None Seen HPF (0-3)
[2018-05-25 18:09] VITALS: BMI 22.4
[2018-05-25] MEDS ORDERED: Ondansetron ODT 4 MG TAB SL PRN (18:17)
[2018-05-25] MEDS ORDERED: Sodium Chloride 0.9% 1,000 ML IV SCH (18:17)
[2018-05-25] MEDS ORDERED: Acetaminophen 325 MG TAB PO PRN (18:17)
[2018-05-25] MEDS ORDERED: levETIRAcetam 500 MG TAB PO SCH (18:30)
[2018-05-25] MEDS: Sodium Chloride 0.9% 1,000 ML IV SCH (18:40)
[2018-05-25 18:48] LABS: #Basophils 0.1 thou/uL (0.0-0.2); #Eosinphils 0.1 thou/uL (0.0-0.7); #Lymphocytes 1.6 thou/uL (1.20-3.40); #Monocytes 0.9 thou/uL (0.11-0.59); #Neutrophils 8.4 thou/uL (1.40-6.50); %Basophils 0.5 % (0.0-1.0); %Lymphocytes 14.1 % (21.0-51.0); %Monocytes 8.5 % (0.0-10.0); Hemoglobin 9.3 g/dL (14.0-18.0); Mean Corpuscular HGB CONC 35.9 g/dL (32.0-36.0); Mean Corpuscular Hemoglobin 33.4 pg (27.0-31.0); Mean Platelet Volume 7.3 fL (7.4-10.4); Platelet Count 174 thou/uL (130-400); RBC Distribution Width 17.6 % (11.5-14.5); Red Blood Cell (RBC) Count 2.77 mill/uL (4.70-6.10)
[2018-05-26 00:56] LABS: #Basophils 0.1 thou/uL (0.0-0.2); #Eosinphils 0.1 thou/uL (0.0-0.7); #Lymphocytes 1.4 thou/uL (1.20-3.40); #Monocytes 0.8 thou/uL (0.11-0.59); #Neutrophils 8.1 thou/uL (1.40-6.50); %Basophils 0.7 % (0.0-1.0); %Eosinophils 1.2 % (0.0-10.0); %Lymphocytes 13.2 % (21.0-51.0); %Monocytes 7.8 % (0.0-10.0); %Neutrophils 77.2 % (42.0-75.0); Hemoglobin 8.8 g/dL (14.0-18.0); Mean Corpuscular Hemoglobin 33.7 pg (27.0-31.0); Mean Corpuscular Volume 93.5 fL (78.0-98.0); Platelet Count 159 thou/uL (130-400); RBC Distribution Width 17.6 % (11.5-14.5); White Blood Cell (WBC) Count 10.4 thou/uL (4.8-10.8)
[2018-05-26 04:10] LABS: #Basophils 0.1 thou/uL (0.0-0.2); #Eosinphils 0.1 thou/uL (0.0-0.7); #Lymphocytes 1.4 thou/uL (1.20-3.40); #Monocytes 0.8 thou/uL (0.11-0.59); #Neutrophils 7.5 thou/uL (1.40-6.50); %Basophils 0.7 % (0.0-1.0); %Eosinophils 1.2 % (0.0-10.0); %Monocytes 7.8 % (0.0-10.0); %Neutrophils 76.4 % (42.0-75.0); Mean Corpuscular HGB CONC 35.8 g/dL (32.0-36.0); Mean Corpuscular Hemoglobin 33.7 pg (27.0-31.0); Mean Platelet Volume 7.5 fL (7.4-10.4); Platelet Count 171 thou/uL (130-400); RBC Distribution Width 17.8 % (11.5-14.5); Red Blood Cell (RBC) Count 2.66 mill/uL (4.70-6.10); White Blood Cell (WBC) Count 9.8 thou/uL (4.8-10.8)
[2018-05-26 04:24] LABS: ALT (SGPT) 28 U/L (8-55); AST (SGOT) 24 U/L (5-34); Albumin 3.4 g/dL (3.4-4.8); Alkaline Phosphatase 123 U/L (40-150); Anion Gap 13 mmol/L (10-20); BUN (Urea Nitrogen) 22 mg/dL (8.4-25.7); Bilirubin, Total 0.4 mg/dL (0.2-1.2); Calc. Creatinine Clearance 113 mL/min (70-130); Calcium 8.8 mg/dL (7.8-10.44); Carbon Dioxide 22 mmol/L (23-31); Chloride 108 mmol/L (98-107); Estimated GFR-MDRD Greater than 90; Globulin 2.8 g/dL (2.4-3.5); Glucose 118 mg/dL (80-115); Potassium 3.8 mmol/L (3.5-5.1); Protein, Total 6.2 g/dL (5.8-8.1); Sodium 139 mmol/L (136-145)
[2018-05-26] MEDS: Sodium Chloride 0.9% 1,000 ML IV SCH ×2 (05:21→16:34)
[2018-05-26 06:39] LABS: #Basophils 0.1 thou/uL (0.0-0.2); #Eosinphils 0.1 thou/uL (0.0-0.7); #Lymphocytes 1.2 thou/uL (1.20-3.40); #Monocytes 0.8 thou/uL (0.11-0.59); #Neutrophils 6.7 thou/uL (1.40-6.50); %Basophils 0.8 % (0.0-1.0); %Eosinophils 1.3 % (0.0-10.0); %Lymphocytes 13.9 % (21.0-51.0); %Monocytes 8.4 % (0.0-10.0); %Neutrophils 75.7 % (42.0-75.0); Mean Corpuscular HGB CONC 35.6 g/dL (32.0-36.0); Mean Corpuscular Hemoglobin 33.6 pg (27.0-31.0); Mean Corpuscular Volume 94.4 fL (78.0-98.0); Mean Platelet Volume 7.4 fL (7.4-10.4); Platelet Count 167 thou/uL (130-400); RBC Distribution Width 17.7 % (11.5-14.5); Red Blood Cell (RBC) Count 2.66 mill/uL (4.70-6.10); White Blood Cell (WBC) Count 8.9 thou/uL (4.8-10.8)
[2018-05-26] MEDS: levETIRAcetam 500 MG TAB PO SCH ×2 (08:50→21:05)
--- NOTE | 2018-05-26 12:53 | PRG ---
DATE OF SERVICE: 05/26/2018 SUBJECTIVE: The patient is feeling much better. He reports he does not want to eat any solid food t marlyn. He has had no vomiting. OBJECTIVE: VITAL SIGNS: Temperature 98.0, pulse 109, respiratory rate 16, blood pressure 110/65. CHEST: Clear. CARDIOVASCULAR: Regular rate and rhythm. ABDOMEN: Benign. LABORATORY DATA: Shows white blood cell count of 8.9, hemoglobin of 9.0, hematocrit 25.2. ASSESSMENT: 1. Reflux esophagitis. 2. Gastritis and duodenitis. RECOMMENDATIONS: 1. Continue omeprazole or Protonix 40 mg b.i.d. 2. Advance diet to full liquid and advance as tolerated. 3. We will sign off.
--- NOTE | 2018-05-26 13:13 | PRG ---
DATE OF SERVICE: 05/26/2018. SUBJECTIVE: The patient is seen and examined at bedside. He is looking significantly better today. His daughter is in the room during my visit, she is telling that the patient was on digoxin before, but when we went to the [place] website, it says that his digoxin was discontinued in 09/2017. This was f or his atrial fibrillation, which is chronic. OBJECTIVE: VITAL SIGNS: Blood pressure is 110/65, temperature is 98.0, pulse is 109, respiratory rate is 16, O2 saturation is 95% on 5 liters by nasal cannula. HEENT: His head is atraumatic, normocephalic. Eyes are PERRLA. Sclerae is nonicteric. Oral mucosa is moist. NECK: Supple. LUNGS: Clear. HEART: S1, S2, irregularly irregular, somewhat tachycardic, no S3, no S4. ABDOMEN: Soft, nontender, bowel sounds are present, no organomegaly. EXTREMITIES: No clubbing, cyanosis or edema. NEUROLOGIC: He follows my commands. He is able to move his all 4 extremities. LABORATORY DATA: Showed white count of 8.9, hemoglobin of 9.0, hematocrit 25.2, platelet count 167. Sodium of 139, potassium 3.8, chloride 108, CO2 of 22, BUN 22, creatinine 0.68. Glycemia is ranging from 118-173. Rest of chemistry is within normal limits. Microbiology showed guaiac positive stool . IMPRESSION: 1. Upper gastrointestinal bleeding, status post esophagogastroduodenoscopy by Dr. Bradley yesterday wit h findings of severe grade D erosive esophagitis involving half of the esophagus along with antral ga stritis and severe erosive duodenitis. 2. Chronic atrial fibrillation with rapid ventricular response. The patient is still on Cardizem dr ip. We will start him on Cardizem-CD 180 mg and taper and wean him off Cardizem drip. We will keep holding his lisinopril and losartan. We will see how his blood pressure behaves with introduction of Cardizem. We will continue his carvedilol. We will continue his Keppra and Dilantin. 3. Diabetes mellitus, seems to be in decent controlled. 4. Chronic obstructive pulmonary disease, stable. 5. Hyperlipidemia, stable. 6. Peripheral vascular disease, chronic, stable. 7. History of cerebrovascular accident with right-sided hemiparesis, stable. 8. Seizures, stable. We will continue Dilantin and Keppra. 9. Hypertension, stable. PLAN: Switch him to oral Cardizem to control his heart rate and the Cardizem drip will be weaned off . We will continue holding his aspirin and Plavix. We will continue his PPI and he can be moved out from IMCU to telemetry floor.
[2018-05-26] MEDS: metFORMIN 500 MG TAB PO SCH (16:34)
--- NOTE | 2018-05-26 20:09 | PRG ---
DATE OF SERVICE: 05/26/2018 SERVICE: Pulmonary Medicine. REASON FOR CONSULT: IMCU patient. HISTORY OF PRESENT ILLNESS: The patient is a 62-year-old white male. He is in his usual state of he alth until last month. He came to the hospital with stroke. He was discharged from the hospital off his omeprazole on Pepcid. He started having increasing abdominal discomfort over a period of about a week. He started vomiting up a little bit of blood over 24 hours. He came to the Emergency Depart ment. EGD was performed demonstrating a clear evidence of erosive esophagitis, duodenitis. He was p ut back on his PPI. His belly is starting to settle down a little bit. He denies any nausea or vomi ting. He is tolerating a clear liquid diet at this point. His hemoglobins have been stable. He is going to be transitioned out of the ICU to telemetry unit because he is in atrial fibrillation with R VR. Otherwise, no notable change to his condition has occurred. PAST MEDICAL HISTORY: 1. Atrial fibrillation, permanent. 2. Chronic obstructive pulmonary disease. 3. Dyslipidemia. 4. Hypertension. 5. Cerebrovascular accident with right-sided hemiparesis. 6. Peripheral vascular disease. 7. Seizure disorder. 8. Type 2 diabetes mellitus. 9. Dementia. PAST SURGICAL HISTORY: Unknown. ALLERGIES: No known drug allergies. MEDICATIONS: List of his inpatient medications were reviewed. No updates were made at this time. SOCIAL HISTORY: He is currently in a nursing facility, but his goal is to get back to his house. He currently has no access to alcohol, tobacco, or illicit drugs. FAMILY HISTORY: Noncontributory. REVIEW OF SYSTEMS: General, head, ears, eyes, nose, throat, cardiovascular, respiratory, musculoskel etal, neurologic, and skin is negative except as mentioned in the HPI. PHYSICAL EXAMINATION: VITAL SIGNS: Afebrile, pulse 100, blood pressure 110/65, respirations 16, saturation 97% on room air . GENERAL: Patient is awake, alert, in no apparent distress. LUNGS: Decent air entry. There is no prolonged expiratory phase, wheezing, rhonchi, or crackles pre sent. HEART: Normal rate, regular. ABDOMEN: Soft, nontender, nondistended. Bowel sounds are positive. MUSCULOSKELETAL: No cyanosis or clubbing. No pitting in the bilateral lower extremities. NEUROLOGIC: Dense right-sided hemiplegia is present. He has some strength in the right lower extrem ity. He can move his right hand, but he cannot move his right arm and has very severe weakness in th e right shoulder. LABORATORY DATA: Hemoglobin stable at 9.0. Basic metabolic profile is otherwise unremarkable. INR 1.1. Liver function studies are unremarkable. Iron counts are low with a normal ferritin. Basic me tabolic profile is essentially unremarkable with a creatinine of 0.68. Urinalysis is negative. Kepp ra level of 8.7. ASSESSMENT: 1. Acute blood loss anemia. 2. Gastritis and duodenitis. 3. Recent cerebrovascular accident with hemiplegia on the right. 4. Atrial fibrillation, chronic. PLAN: The patient has resumed his home rate control medications. The drip will be discontinued. He can transition out of the ICU to the telemetry unit. Pulmonary will continue to follow if he remain s in this location.
[2018-05-26] MEDS ORDERED: levETIRAcetam 100 mg/ml Oral Solution PO SCH (21:00)
[2018-05-26] MEDS ORDERED: Phenytoin 50 MG Chewable Tablet PO SCH (21:00)
[2018-05-26] MEDS: Ferrous Gluconate 324 MG TAB PO SCH (21:05)
[2018-05-26] MEDS: Atorvastatin Calcium 40 MG TAB PO SCH (21:05)
[2018-05-27] MEDS: Sodium Chloride 0.9% 1,000 ML IV SCH ×3 (02:42→20:39)
[2018-05-27 04:22] LABS: #Basophils 0.1 thou/uL (0.0-0.2); #Eosinphils 0.3 thou/uL (0.0-0.7); #Lymphocytes 1.3 thou/uL (1.20-3.40); #Monocytes 0.6 thou/uL (0.11-0.59); #Neutrophils 4.5 thou/uL (1.40-6.50); %Basophils 0.9 % (0.0-1.0); %Eosinophils 3.8 % (0.0-10.0); %Lymphocytes 19.6 % (21.0-51.0); %Monocytes 8.5 % (0.0-10.0); %Neutrophils 67.2 % (42.0-75.0); Hemoglobin 9.2 g/dL (14.0-18.0); Mean Corpuscular HGB CONC 36.1 g/dL (32.0-36.0); Mean Corpuscular Hemoglobin 33.9 pg (27.0-31.0); Mean Corpuscular Volume 94.1 fL (78.0-98.0); Mean Platelet Volume 7.4 fL (7.4-10.4); Platelet Count 171 thou/uL (130-400); RBC Distribution Width 17.4 % (11.5-14.5); Red Blood Cell (RBC) Count 2.71 mill/uL (4.70-6.10); White Blood Cell (WBC) Count 6.7 thou/uL (4.8-10.8)
[2018-05-27 04:43] LABS: ALT (SGPT) 28 U/L (8-55); AST (SGOT) 24 U/L (5-34); Albumin 3.4 g/dL (3.4-4.8); Alkaline Phosphatase 117 U/L (40-150); Anion Gap 12 mmol/L (10-20); BUN (Urea Nitrogen) 10 mg/dL (8.4-25.7); Bilirubin, Total 0.4 mg/dL (0.2-1.2); Calc. Creatinine Clearance 122 mL/min (70-130); Calcium 8.8 mg/dL (7.8-10.44); Carbon Dioxide 24 mmol/L (23-31); Chloride 108 mmol/L (98-107); Estimated GFR-MDRD Greater than 90; Globulin 2.8 g/dL (2.4-3.5); Glucose 106 mg/dL (80-115); Potassium 3.9 mmol/L (3.5-5.1); Protein, Total 6.2 g/dL (5.8-8.1); Sodium 140 mmol/L (136-145)
[2018-05-27] MEDS: Ascorbic Acid 500 mg Chewable Tablet PO SCH (08:30)
[2018-05-27] MEDS: levETIRAcetam 500 MG TAB PO SCH ×2 (08:32→20:34)
[2018-05-27] MEDS: Tamsulosin HCl 0.4 MG CAP PO SCH (08:32)
[2018-05-27] MEDS: Furosemide 40 MG TAB PO SCH (08:32)
[2018-05-27] MEDS: Cholecalciferol (Vitamin D3) 400 UNITS TAB PO SCH (08:33)
[2018-05-27] MEDS: Carvedilol 25 MG TAB PO SCH (08:35)
--- NOTE | 2018-05-27 09:09 | PDOC.PN ---
- Subjective Encounter Start Date: 05/27/18 Encounter Start Time: 09:06 Subjective: alert, no further bleeding - Objective Resuscitation Status: Resuscitation Status FULL:Full Resuscitation MAR Reviewed: Yes Vital Signs & Weight: Vital Signs (12 hours) Temp Pulse Resp BP Pulse Ox 05/27/18 07:35 97.9 F 115 H 164/101 H 05/27/18 04:00 97.4 F L 96 12 133/83 96 05/26/18 23:47 97.6 F 106 H 12 132/83 97 Weight Weight 160 lb 6.4 oz I&O: 05/26/18 05/27/18 05/28/18 06:59 06:59 06:59 Intake Total 1300 240 Balance 1300 240 Result Diagrams: 05/27/18 03:46 05/27/18 03:46 Phys Exam - Physical Examination Neck: no JVD Respiratory: clear to auscultation bilateral Cardiovascular: no significant murmur, irregular Gastrointestinal: soft, positive bowel sounds Musculoskeletal: no edema dense right hemiplegia Dx/Plan (1) GI bleeding Code(s): K92.2 - GASTROINTESTINAL HEMORRHAGE, UNSPECIFIED Status: Acute Qualifiers: GI bleed type/associated pathology: unspecified gastrointestinal hemorrhage type Qualified Code(s): K92.2 - Gastrointestinal hemorrhage, unspecified (2) Acute posthemorrhagic anemia Code(s): D62 - ACUTE POSTHEMORRHAGIC ANEMIA Status: Acute (3) Atrial fibrillation with controlled ventricular rate Code(s): I48.91 - UNSPECIFIED ATRIAL FIBRILLATION Status: Chronic (4) HTN (hypertension) Code(s): I10 - ESSENTIAL (PRIMARY) HYPERTENSION Status: Chronic Qualifiers: Hypertension type: essential hypertension Qualified Code(s): I10 - Essential (primary) hypertension (5) Esophagitis, erosive Code(s): K22.10 - ULCER OF ESOPHAGUS WITHOUT BLEEDING Status: Acute (6) Duodenitis Code(s): K29.80 - DUODENITIS WITHOUT BLEEDING Status: Acute (7) DM2 (diabetes mellitus, type 2) Status: Chronic Qualifiers: Diabetes mellitus local intermodal truck driver insulin use: without local intermodal truck driver use Diabetes mellitus complication status: without complication Qualified Code(s): E11.9 - Type 2 diabetes mellitus without complications Comment: on accuchecks, insulin sliding scale (8) HLD (hyperlipidemia) Code(s): E78.5 - HYPERLIPIDEMIA, UNSPECIFIED Status: Chronic Qualifiers: - Plan cont off plavix, cont protonix 40 bid -: continue diltiazem for rate control -: cbc in am -: tele * .
--- NOTE | 2018-05-27 11:35 | PRG ---
DATE OF SERVICE: 05/27/2018 SERVICE: Pulmonary Medicine. INTERVAL HISTORY: The patient is actually feeling much better. His strength is improving. Denies a ny chest pain, nausea, vomiting, fevers or chills. He is asking for real food. At this point, I do not think that is unreasonable. Otherwise, there has been no interval change to his condition. PHYSICAL EXAMINATION: VITAL SIGNS: Afebrile, pulse 97, blood pressure 164/101, respirations 12, and saturation 96% on room air. GENERAL: The patient is awake, alert, in no apparent distress. LUNGS: Excellent air entry. There is no prolonged expiratory phase or wheezing present. HEART: Normal rate, regular. ABDOMEN: Soft, nontender, nondistended. Bowel sounds are positive. MUSCULOSKELETAL: No cyanosis or clubbing. No pitting in the bilateral lower extremities. NEUROLOGIC: Nonfocal. He has a right upper extremity plegia. Outside of that, he is nonfocal. LABORATORY DATA: WBC 6.7, hemoglobin 9.2, platelets 171,000. INR 1.1. Basic metabolic profile and liver function studies are essentially unremarkable. Urinalysis is negative. ASSESSMENT: 1. Acute blood loss anemia, stable. 2. Gastritis and duodenitis. 3. Recent cerebrovascular accident with hemiplegia on the upper right arm. 4. Atrial fibrillation, chronic, DISCUSSION AND PLAN: From my perspective, the patient is stable for transition to the telemetry unit and/or discharge home. No longer requirements for inpatient Pulmonary or Critical Care opinion, and I will sign off. Please call our Service with additional questions or concerns. I will advance his diet.
[2018-05-27] MEDS: Ferrous Gluconate 324 MG TAB PO SCH ×2 (11:43→20:35)
[2018-05-27] MEDS: metFORMIN 500 MG TAB PO SCH ×2 (11:43→17:05)
[2018-05-27] MEDS: Atorvastatin Calcium 40 MG TAB PO SCH (20:35)
[2018-05-28 03:42] LABS: #Basophils 0.1 thou/uL (0.0-0.2); #Eosinphils 0.2 thou/uL (0.0-0.7); #Lymphocytes 1.3 thou/uL (1.20-3.40); #Monocytes 0.7 thou/uL (0.11-0.59); #Neutrophils 4.2 thou/uL (1.40-6.50); %Eosinophils 3.7 % (0.0-10.0); %Lymphocytes 19.6 % (21.0-51.0); %Monocytes 10.3 % (0.0-10.0); %Neutrophils 65.4 % (42.0-75.0); Mean Corpuscular HGB CONC 35.6 g/dL (32.0-36.0); Mean Corpuscular Hemoglobin 33.4 pg (27.0-31.0); Mean Corpuscular Volume 93.9 fL (78.0-98.0); Mean Platelet Volume 7.2 fL (7.4-10.4); Platelet Count 174 thou/uL (130-400); RBC Distribution Width 17.8 % (11.5-14.5); Red Blood Cell (RBC) Count 2.71 mill/uL (4.70-6.10); White Blood Cell (WBC) Count 6.5 thou/uL (4.8-10.8)
[2018-05-28] MEDS: Sodium Chloride 0.9% 1,000 ML IV SCH (06:43)
[2018-05-28] MEDS: Tamsulosin HCl 0.4 MG CAP PO SCH (09:24)
[2018-05-28] MEDS: Carvedilol 25 MG TAB PO SCH (09:24)
[2018-05-28] MEDS: levETIRAcetam 500 MG TAB PO SCH (09:25)
[2018-05-28] MEDS: metFORMIN 500 MG TAB PO SCH (09:25)
[2018-05-28] MEDS: Ascorbic Acid 500 mg Chewable Tablet PO SCH (09:26)
[2018-05-28] MEDS: Furosemide 40 MG TAB PO SCH (09:26)
[2018-05-28] MEDS: Ferrous Gluconate 324 MG TAB PO SCH (09:27)
[2018-05-28] MEDS: Cholecalciferol (Vitamin D3) 400 UNITS TAB PO SCH (09:27)
--- NOTE | 2018-05-28 11:42 | PQF ---
DATE: 05-28-18 ATTN: DR. EVERARDO SIMMS Please exercise your independent, professional judgment in responding to the clarification form. Clinical indicators are provided on the bottom of this form for your review Please check appropriate box(s): [ ] UTI [ x ] Contaminated urine specimen without UTI [ ] Other diagnosis [ ] Unable to determine In addition, please specify: Present on Admission (POA): [ x ] Yes [ ] No [ ] Unable to determine For continuity of documentation, please document condition throughout progress notes and discharge summary. Thank You. CLINICAL INDICATORS - SIGNS / SYMPTOMS / LABS URINE 05-25-18: URINE KETONES: TRACE H UR LEUKOCYTE ESTERASE: LARGE H URINE WBC: GREATER THAN 50 - TNTC H URINE BACTERIA: 4+ H RISK FACTORS: ER: LIVING IN [place] DUE TO SEIZURES, HISTORY OF DEMENTIA, COPD, A FIB, DM, HTN, METABOLIC ENCEPHALOPATHY, CVA, SMOKER TREATMENT: ER: IVF (This form is maintained as a part of the permanent medical record) 2014 [employer] All Rights Reserved [email or web address] Office: [phone] TERESA
[2018-05-28 11:56] VITALS: BP 108/70; TEMP 97.4
--- NOTE | 2018-05-28 12:50 | DIS ---
DATE OF ADMISSION: 05/25/2018 DATE OF DISCHARGE: 05/28/2018 DISPOSITION: Discharged home. PRIMARY CARE PROVIDER: [facility] in [place]. FINAL DIAGNOSES: Gastrointestinal hemorrhage, acute posthemorrhagic anemia, erosive esophagitis, duo denitis, atrial fibrillation, chronic obstructive pulmonary disease, history of CVA with hemiparesis, seizure disorder, hypertension, and diabetes mellitus type 2. DISCHARGE MEDICATIONS: Flomax 0.4 mg a day, Dilantin 50 mg twice a day, Levitra 15 mL of 100 mg per mL solution twice a day, metformin 1000 mg twice a day, losartan 50 mg a day, furosemide 40 mg a day, Coreg half of a 25 mg tablet a day, Lipitor half of an 80 mg tablet daily, ferrous gluconate 324 mg twice a day, Protonix 40 mg twice a day, diltiazem hydrochlorothiazide 180 mg p.o. twice a day. MEDICATIONS HELD: Plavix 75 mg a day and aspirin 81 mg a day. CODE STATUS: FULL RESUSCITATION. PENDING AT TIME OF DISCHARGE: Nothing. DIET: Diabetic. HOSPITAL COURSE: The patient presented in the emergency room on 05/25/2018, referred to the [facility] spitalist Service with coffee ground vomiting, rapid atrial fibrillation. Hemoglobin was 10.7 on adm ission. Patient was treated with IV diltiazem and eventually transitioned to oral diltiazem. His he moglobin is 10.7, 9.3, dropped down to 8.8, and then remained in the 9-9+ region since requiring no t ransfusion. INR 1.1. Chemistries have been unremarkable with normal renal function. Blood sugars i n the 100-200 range. Ferritin was 201. He was seen and consultation by Dr. Musa Bradley, who did an E GD. On 05/25/2018 showing the erosive esophagitis and duodenitis. A biopsy was taken, which is pend ing of the gastric mucosa. The patient is currently stable, very desirous of going home. His hemogl obin is stable. He has had no further bleeding. He is being discharged for followup with the [facility] within 1 week. He will probably eventually need to be put back on aspirin and possibly Plavix wi ll be left to the MA for the appropriate decisions on that.
--- NOTE | 2018-06-01 13:54 | EKG ---
Test Reason : Blood Pressure : / mmHG Vent. Rate : 137 BPM Atrial Rate : 137 BPM P-R Int : 000 ms QRS Dur : 122 ms QT Int : 294 ms P-R-T Axes : 000 265 044 degrees QTc Int : 443 ms Atrial fibrillation with rapid ventricular response Right bundle branch block Abnormal ECG Confirmed by HAVEN RIVERO D.O. ([id number]), city editor MJ HANKINS ([id number]) on 06/01/2018 1:54:06 PM Referred By: Confirmed By:HAVEN RIVERO D.O.
== END 2018-05-28 14:25 | DRG 378 ==
LOC: ERS 04:36 → ERHOLD 05:49 → IMCU/EMU 18:09
PROVIDERS: ADMIT Hospitalist; ATTEND Hospitalist
PROC: 0DB68ZX Excision of Stomach, Via Natural or Artificial Opening Endoscopic, Diagnostic (ICD-10-PCS; principal; 2018-05-25)
DX: K92.2 Gastrointestinal hemorrhage, unspecified (principal); D62 Acute posthemorrhagic anemia; K22.10 Ulcer of esophagus without bleeding; I69.351 Hemiplegia and hemiparesis following cerebral infarction affecting right dominant side; K29.80 Duodenitis without bleeding; J44.9 Chronic obstructive pulmonary disease, unspecified; F03.90 Unspecified dementia, unspecified severity, without behavioral disturbance, psychotic disturbance, mood disturbance, and anxiety; G40.909 Epilepsy, unspecified, not intractable, without status epilepticus; I10 Essential (primary) hypertension; K29.70 Gastritis, unspecified, without bleeding; I48.2 Chronic atrial fibrillation; E78.5 Hyperlipidemia, unspecified; E11.51 Type 2 diabetes mellitus with diabetic peripheral angiopathy without gangrene; K21.0 Gastro-esophageal reflux disease with esophagitis; I25.10 Atherosclerotic heart disease of native coronary artery without angina pectoris
CPT/HCPCS: 36415; 36416; 80053; 80177; 81003; 81015; 82274; 82728; 83540; 83550; 85025; 85610; 85730; 86850; 86900; 86901; 88305; 88312; 93005; 94760; 96361; 96365; 96366; C9113; J2001; J2704; J7050